=== PATIENT | male | born 1960 | race Hispanic/Latino ===

== ENCOUNTER 2017-02-26 13:29 | Inpatient (IN) | payer MEDICAID ==
[2017-02-26] MEDS ORDERED: Sodium Chloride 0.9% 1,000 ML IV STA ×2 (13:50→14:24)
[2017-02-26] MEDS ORDERED: Pantoprazole 40mg/100ml IVPB 40 MG/100 ML BAG IVPB SCH (14:00)
--- NOTE | 2017-02-26 14:04 | ED PDOC ---
Arrival/HPI - General Time Seen by Provider: 02/26/17 13:42 Historian: Patient, Spouse - History of Present Illness Narrative History of Present Illness (Text): 02/26/17 14:01 A 56 year old male, whose past medical history includes possible history of alcohol abuse and hypertension, presents to the emergency department accompanied by for complaints of nausea and vomiting episodes, which the patient believes he was throwing up blood. The patient's reports he began throwing up "yesterday morning" at around "7 am". The states that this vomit was "bloody" and she urged the patient to go to the hospital but he did not want to at the time. They both note the vomiting occurs every few hours. The patient also reports that he "thinks he has bloody stools." The patient admits his last drink was 2 days ago. He states that he went to work yesterday and felt "dizzy" while walking. He denies any chest pain or shortness of breath. He denies "abdominal pain" but states "my stomach feels upset". states that the patient does drink "frequently" but confirms no alcohol ingestion to her knowledge for at least two days. Patient denies nosebleeds. Denies easy bruising. Denies any falls or trauma. states that this morning patient appeared to be "very tired", although she denies confusion or altered mental status. Patient states he has not seen a physician for "a very long time". Time/Duration: < week (2 days ) Symptom Onset: Sudden Symptom Course: Unchanged Activities at Onset: Rest, Light Context: Home, Work Past Medical History - Provider Review Nursing Documentation Reviewed: Yes - Cardiac Hx Cardiac Disorders: Yes Hx Hypertension: Yes - Pulmonary Hx Respiratory Disorders: No - Neurological Hx Neurological Disorder: No - HEENT Hx HEENT Disorder: No - Renal Hx Renal Disorder: No - Endocrine/Metabolic Hx Endocrine Disorders: No - Hematological/Oncological Hx Blood Disorders: No - Integumentary Hx Dermatological Disorder: No - Musculoskeletal/Rheumatological Hx Musculoskeletal Disorders: No - Gastrointestinal Hx Gastrointestinal Disorders: No Hx Bowel Surgery: No - Genitourinary/Gynecological Hx Genitourinary Disorders: No - Psychiatric Hx Psychophysiologic Disorder: No Hx Depression: No Hx Emotional Abuse: No Hx Physical Abuse: No Hx Substance Use: No - Past Surgical History Past Surgical History: Non-Contributing - Surgical History Hx Orthopedic Surgery: Yes (knee) - Suicidal Assessment Feels Threatened In Home Enviroment: No Family/Social History - Physician Review Nursing Documentation Reviewed: Yes Family/Social History: Unknown Family HX Smoking Status: Heavy Smoker > 10 Cigarettes Daily Hx Alcohol Use: Yes Amount per day: 6 Hx Substance Use: No Hx Substance Use Treatment: No Allergies/Home Meds Allergies/Adverse Reactions: Allergies No Known Allergies Allergy (Verified 02/26/17 14:21) Home Medications: Home Meds Medication Instructions Recorded Confirmed Albuterol HFA [Ventolin HFA 90 0.09 mg IH QID 02/26/17 02/26/17 mcg/actuation (8 g)] Aspirin [Ecotrin] 81 mg PO DAILY 02/26/17 02/26/17 Cholecalciferol [Vitamin D] 50,000 iu PO QWK 02/26/17 02/26/17 Fluticasone/Salmeterol [Advair 1 each IH BID 02/26/17 02/26/17 250-50 Diskus] Metoprolol Succinate XL [Toprol XL] 50 mg PO DAILY 02/26/17 02/26/17 Review of Systems - Review of Systems Constitutional: Fatigue. absent: Fevers, Night Sweats Eyes: absent: Vision Changes, Photophobia, Eye Pain ENT: absent: Hearing Changes, Sore Throat Respiratory: absent: SOB, Cough, Wheezing Cardiovascular: Palpitations, DOWNEY. absent: Chest Pain, Edema, Calf Pain, Orthopnea, Syncope Gastrointestinal: Abdominal Pain, Nausea, Vomiting, Appetite Changes, Hematochezia, Hematemesis. absent: Constipation, Diarrhea, Anorexia, Food Intolerance, Other Genitourinary Male: absent: Dysuria, Frequency, Hematuria Musculoskeletal: absent: Back Pain Skin: absent: Rash Neurological: Dizziness. absent: Headache, Focal Weakness Endocrine: absent: Polyuria, Polydipsia Hemo/Lymphatic: Easy Bleeding Psychiatric: absent: Anxiety, Depression Physical Exam - Physical Exam Narrative Physical Exam (Text): 02/26/17 14:09 Head: Atraumatic. Normocephalic. Eyes: PERRL. EOMI. Visual acuity intact. Sclera icteric. ENT: Mucous membranes are dry and tacky. No lip or tongue edema. No pharyngeal erythema or exudates. Neck: Supple. Full ROM. No JVD. No lymphadenopathy. Cardiovascular: Tachycardic. Systolic murmur. Pulmonary/Chest: No evidence of respiratory distress. Clear to auscultation bilaterally. No wheezing, rales or rhonchi. Abdominal: Distended. Mild epigastric pain with hepatomegaly. No pulsatile masses. No rebound or guarding. Normoactive bowel sounds. Back: No CVA tenderness. No midline tenderness. Genitourinary: no testicular pain or edema Extremities: No edema. No cyanosis. No clubbing. Full range of motion in all extremities. No calf tenderness. Distal pulses intact. Skin: Skin is pale and diaphoretic. No petechiae or purpura noted. Neurological: Alert, awake, and oriented to person, place, time, and situation. Slow but appropriate speech. Tremulous. No pronator drift. Positive asterixis. No nuchal rigidity or meningeal signs. On later exam at 15:00, patient is disoriented to person and time. Remains tremulous. Psychiatric: Poor eye contact. Denies suicidal or homicidal ideation. Rectal exam: Dark heme positive stool, melena. Vital Signs Reviewed: Yes Vital Signs Temp Pulse Resp BP Pulse Ox 02/26/17 15:05 123 H 24 161/108 H 94 L 02/26/17 13:29 99.2 F 136 H 20 146/80 96 Temperature: Afebrile Blood Pressure: Hypertensive Pulse: Tachycardic Respiratory Rate: Tachypneic Appearance: Positive for: Ill-Appearing Mental Status: Positive for: Alert and Oriented X 3 Medical Decision Making ED Course and Treatment: 02/26/17 14:00 Impression: Differential Diagnosis included but are not limited to: GI Bleed. vs. Esophageal varices vs. Alcohol withdrawal vs. Alcohol intoxication vs Hepatic Encephalopathy vs. Peritonitis vs. sepsis Plan: -- EKG -- Chest X-ray -- Protonix IV drip, IV Fluids, Zofran -- Labs -- Urinalysis -- Reassess and disposition Progress Notes: Patient's history is supplemented by at bedside. Patient's past visits to ED significant for ETOH abuse. Family and patient state that he does not see a doctor regularly. Patient states he has not vomited since earlier this morning, but believes he saw blood in his vomitus. His abdomen is distended but nontender. Rectal exam performed by me reveals melena as well as heme positive stool. He is tachycardic, but initially has stable blood pressure. I have concern for severe GI bleed given tachycardia, despite lack of hypotension, as patient has likely history of alcohol abuse per history and signs of active bleeding. IV lines established and iv fluids boluses ordered as well as type and screen. Cannot exclude also potentially a component of alcohol withdrawal as he has not had a drink "for two days". Labs currently pending. We will continue aggressive iv hydration with close monitoring of pressure and patient will be ordered protonix with protonix drip. Plan to admit to ICU, labs pending. Will consult lead project manager. Critical nature of patient's symptoms reviewed with patient and . 02/26/17 14:31 Chest X-Ray Gang Saw Operator : Nando Chiang MD Report Date : 02/26/2017 14:19:23 COMPARISON:10/19/2012 FINDINGS: LUNGS:No active pulmonary disease. PLEURA:No significant pleural effusion identified, no pneumothorax apparent. CARDIOVASCULAR:Normal. OSSEOUS STRUCTURES:No significant abnormalities. VISUALIZED UPPER ABDOMEN:Normal. OTHER FINDINGS:None. IMPRESSION:No active disease. Patient on re-evaluation is less tachycardic but hear rate remains accelerated, appears to be sinus tachycardia rate of 126 on re-evaluation. BP remains stable. states he takes medications prescribed by "[employer]" but patient is uncertain what meds he takes. He denies any history of diabetes or cardiac disease. With serial exams, he remains tremulous and appears intermittently confused not recognizing his and stating that year is 2014, although on initial exam he answered these questions appropriately. and patient deny any prior admissions, although believes he drinks heavily and daily. I feel current exam likely exacerbated by component of alcohol withdrawal as he has had no alcohol in two days. Lactate elevated, he is afebrile. Cannot exclude sepsis although patient also has elevated lactate from active GI bleed. Troponin elevated, he is not candidate for anticoagulation given active gi bleed although will continue to monitor, initial EKG unremarkable for acute ST elevations, he denies chest pain but does have some palpable epigastric discomfort. Highway Administrative Engineer consulted and labs and symptoms reviewed. WILL NOT ADMINISTER PACKED RED BLOOD CELLS after consultation with lead project manager and GI based on current Hemoglobin. IV antibiotics initiated as peritonitis is excluded given elevated lactate and unreliable abdominal exam given mental status. Elevated ammonia level noted, likely component of hepatic encephalopathy, lactulose ordered. I discussed case with on-call GI Dr. Peck and reviewed treatment plan and labs and current exam. Patient's updated with multiple medical abnormalities and abnormal labs and critical nature of his presentation. Patient admitted to ICU. CT's pending at this time. Case accepted by hospitalist to their service. 02/26/17 15:39 02/26/17 16:57 Order to NOT give packed red blood cells have been communicated to ICU team and GI team, as well as to nursing staff. - Critical Care Critical Care Minutes: 60 minutes - Lab Interpretations Lab Results: 02/26/17 13:57 02/26/17 13:57 Lab Results 02/26/17 14:07: POC Glucose (mg/dL) 134 H 02/26/17 13:57: Ammonia 107 H 02/26/17 13:57: Blood Type A POSITIVE, Antibody Screen Negative, Crossmatch See Detail, BBK History Checked No verified bt 02/26/17 13:57: Alcohol, Quantitative < 10 02/26/17 13:57: Salicylates < 1 L, Acetaminophen < 10.0 L 02/26/17 13:57: Sodium 134, Chloride 90 L, Potassium 4.2, Carbon Dioxide 28, Anion Gap 20, BUN 33 H, Creatinine 0.8, Est GFR ( Amer) > 60, Est GFR ( Non-Af Amer) > 60, Random Glucose 123 H, Calcium 8.7, Magnesium 1.3 L, Total Bilirubin 5.4 H, AST 911 H, ALT 297 H, Alkaline Phosphatase 85, Lactate Dehydrogenase 3153 H, Total Creatine Kinase 250 H, CK-MB (CK-2) 6.4 H, CK-MB (CK -2) % 2.6, Troponin I 0.34 H*, Total Protein 6.4, Albumin 3.0, Globulin 3.4, Albumin/Globulin Ratio 0.9 L, Amylase 52, Lipase 35 02/26/17 13:57: pO2 144 H, VBG pH 7.51 H, VBG pCO2 34.0 L, VBG HCO3 27.1, VBG Total CO2 28.1 H, VBG O2 Sat (Calc) 100.2 H, VBG Base Excess 4.3 H, VBG Potassium 4.5, Sodium 133.0, Chloride 93.0 L, Glucose 125 H, Lactate 12.4 H*, FiO2 21.0, Venous Blood Potassium 4.5 02/26/17 13:57: PT 21.6 H, INR 2.00 H, APTT 35.2 H 02/26/17 13:57: WBC 9.6 D, RBC 2.60 L, Hgb 9.6 L, Hct 28.0 L, MCV 107.7 H, MCH 36.9 H, MCHC 34.3, RDW 14.7 H, Plt Count 79 L, MPV 9.9, Gran % 67.6, Lymph % ( Auto) 18.8 L, [place] % (Auto) 13.5 H, Eos % (Auto) 0.0 L, Baso % (Auto) 0.1, Gran # 6.49, Lymph # 1.8, [place] # 1.3 H, Eos # 0.0, Baso # 0.01 - RAD Interpretation Radiology Orders: 02/26/17 13:49 CHEST PORTABLE [RAD] Stat Chef Under: Radiologist - EKG Interpretation EKG Interpretation (Text): 02/26/17 14:08 EKG at 13:40 sinus tachycardia rate of [address] elevations Interpreted by ED Physician: Yes Type: 12 lead EKG - Medication Orders Current Medication Orders: Octreotide Acetate 1,250 mcg/ (Sodium Chloride) 252.5 mls @ 10.1 mls/hr IV .Q24H ED; 50 MCG/HR PRN Reason: Protocol Sodium Chloride (Sodium Chloride 0.9%) 1,000 mls @ 250 mls/hr IV .Q4H ONE Stop: 02/26/17 19:17 Pantoprazole Sodium (Protonix 40mg Ivpb) 40 mg in 100 mls @ 20 mls/hr IVPB .Q5H ED Vancomycin HCl (Vancomycin 1gm) 1 gm in 250 mls @ 167 mls/hr IVPB Q12H ED PRN Reason: Protocol Piperacillin Sod/Tazobactam Sod (Zosyn 3.375 In Ns 100ml) 100 mls @ 200 mls/hr IVPB Q8 ED PRN Reason: Protocol Stop: 02/27/17 06:29 Lactulose (Enulose) 30 gm PO Q4H ED Lorazepam (Ativan) 2 mg IVP Q6H PRN; Protocol PRN Reason: Anxiety Discontinued Medications Sodium Chloride (Sodium Chloride 0.9%) 1,000 mls @ 1,000 mls/hr IV .Q1H STA Stop: 02/26/17 14:49 Last Admin: 02/26/17 14:00 Dose: 1,000 mls/hr eMAR Start Stop Document 02/26/17 14:00 SRE (Rec: 02/26/17 14:21 [email or web address] [id number]) Intravenous Solution Start Date 02/26/17 Start Time 14:00 End Date 02/26/17 End time 15:00 Total Infusion Time 60 Pantoprazole Sodium (Protonix 40mg Ivpb) 40 mg in 100 mls @ 20 mls/hr IVPB .Q5H ED Last Admin: 02/26/17 14:22 Dose: 20 mls/hr eMAR Start Stop Document 02/26/17 14:22 SRE (Rec: 02/26/17 14:23 SRE [id number]) Intravenous Solution Start Date 02/26/17 Start Time 14:05 End Date 02/26/17 End time 19:00 Total Infusion Time 295 Sodium Chloride (Sodium Chloride 0.9%) 1,000 mls @ 1,000 mls/hr IV .Q1H STA Stop: 02/26/17 15:23 Last Admin: 02/26/17 15:04 Dose: 1,000 mls/hr eMAR Start Stop Document 02/26/17 15:04 SRE (Rec: 02/26/17 15:04 [email or web address] [id number]) Intravenous Solution Start Date 02/26/17 Start Time 15:04 End Date 02/26/17 End time 16:00 Total Infusion Time 56 Vancomycin HCl (Vancomycin 1gm) 1 gm in 250 mls @ 167 mls/hr IVPB STAT STA PRN Reason: Protocol Stop: 02/26/17 16:29 Piperacillin Sod/Tazobactam Sod (Zosyn 4.5 Gm In Ns 100ml) 4.5 gm in 100 mls @ 200 mls/hr IVPB STAT STA PRN Reason: Protocol Stop: 02/26/17 15:30 Last Admin: 02/26/17 15:19 Dose: 200 mls/hr eMAR Start Stop Document 02/26/17 15:19 SRE (Rec: 02/26/17 15:20 [email or web address] [id number]) Intravenous Solution Start Date 02/26/17 Start Time 15:00 End Date 02/26/17 End time 16:00 Total Infusion Time 60 Phytonadione 10 mg/ Sodium (Chloride) 51 mls @ 100 mls/hr IV ONCE ONE Stop: 02/26/17 16:01 Magnesium Sulfate 2 gm/ Sodium (Chloride) 104 mls @ 102 mls/hr IVPB ONCE ONE Stop: 02/26/17 16:36 Multivitamins/Vitamin C 10 ml/Thiamine HCl 100 mg/ Folic Acid 1 mg/ Dextrose 1, 011.2 mls @ 1,000 mls/hr IV .Q1H1M ONE Stop: 02/26/17 16:37 Lactulose (Enulose) 10 gm PO STAT ED Stop: 02/26/17 15:16 Lactulose (Generlac) 200 gm MS ONCE ONE Stop: 02/26/17 16:38 Ondansetron HCl (Zofran Inj) 4 mg IVP ONCE ONE Stop: 02/26/17 14:12 Last Admin: 02/26/17 14:24 Dose: Pantoprazole Sodium (Protonix Inj) 40 mg IVP ONCE STA Stop: 02/26/17 13:51 Last Admin: 02/26/17 14:05 Dose: 40 mg IVP Administration Document 02/26/17 14:05 SRE (Rec: 02/26/17 14:22 SRE [id number]) Charges for Administration # of IVP Administrations 1 - Scribe Statement The provider has reviewed the documentation as recorded by the Betito Lenz Provider Scribe Attestation: All medical record entries made by the Lissibadam were at my direction and personally dictated by me. I have reviewed the chart and agree that the record accurately reflects my personal performance of the history, physical exam, medical decision making, and the department course for this patient. I have also personally directed, reviewed, and agree with the discharge instructions and disposition. Disposition/Present on Arrival - Present on Arrival Any Indicators Present on Arrival: No History of DVT/PE: No History of Uncontrolled Diabetes: No Urinary Catheter: No History Surgical Site Infection Following: None - Disposition Have Diagnosis and Disposition been Completed?: Yes Diagnosis: GI (gastrointestinal hemorrhage), Hepatic encephalopathy, Tachycardia, Altered mental status, Jaundice, Elevated lactic acid level, Elevated troponin, Anemia, Thrombocytopenia, History of alcohol abuse Disposition: HOSPITALIZED Disposition Time: 15:00 Patient Plan: Admission, ICU Condition: CRITICAL
[2017-02-26 14:20] LABS: VENOUS BLOOD GAS BASE EXCESS 4.3 mmol/L (0.0-2.0); VENOUS BLOOD PH 7.51 (7.32-7.43)
--- NOTE | 2017-02-26 14:20 | RAD ---
HISTORY: weakness COMPARISON: 10/19/2012 FINDINGS: LUNGS: No active pulmonary disease. PLEURA: No significant pleural effusion identified, no pneumothorax apparent. CARDIOVASCULAR: Normal. OSSEOUS STRUCTURES: No significant abnormalities. VISUALIZED UPPER ABDOMEN: Normal. OTHER FINDINGS: None. IMPRESSION: No active disease.
[2017-02-26 14:22] LABS: BASO # 0.01 K/mm3 (0.0-2.0); BASO % 0.1 % (0.0-3.0); GRAN # 6.49 (1.4-6.5); GRAN % 67.6 % (50.0-68.0); LYMPH # 1.8 (1.2-3.4); LYMPH % 18.8 % (22.0-35.0); MEAN CELL VOLUME 107.7 fl (80.0-105.0); MEAN CORPUSCULAR HEMOGLOBIN 36.9 pg (25.0-35.0); MEAN CORPUSCULAR HGB CONC 34.3 g/dl (31.0-37.0); MEAN PLATELET VOLUME 9.9 fl (7.0-11.0); MONO # 1.3 (0.1-0.6); MONO % 13.5 % (1.0-6.0); RED CELL DISTRIBUTION WIDTH 14.7 % (11.5-14.5); WHITE BLOOD COUNT 9.6 10^3/ul (4.5-11.0)
[2017-02-26 14:31] LABS: BLOOD UREA NITROGEN 33 mg/dL (7-21); CALCIUM 8.7 mg/dL (8.4-10.5); CARBON DIOXIDE 28 mmol/L (21-33); CHLORIDE 90 mmol/L (98-107); GFR AFRICAN-AMERICAN > 60; GLUCOSE,RANDOM 123 mg/dL (70-110); MAGNESIUM 1.3 mg/dL (1.7-2.2); POTASSIUM 4.2 mmol/L (3.6-5.0); SODIUM 134 mmol/L (132-148); TOTAL PROTEIN 6.4 g/dL (5.8-8.3)
[2017-02-26 14:32] LABS: ALB/GLOB RATIO 0.9 (1.1-1.8); ALKALINE PHOSPHATASE 85 U/L (38-126); ALT/SGPT 297 U/L (7-56); AMYLASE 52 U/L (35-125); BILIRUBIN,TOTAL 5.4 mg/dL (0.2-1.3); LIPASE 35 U/L (23-300)
[2017-02-26 14:37] LABS: AST/SGOT 911 U/L (17-59)
[2017-02-26 14:46] LABS: TROPONIN I 0.34 ng/mL
[2017-02-26 14:51] LABS: PARTIAL THROMBOPLASTIN TIME 35.2 Seconds (23.7-30.8)
[2017-02-26] MEDS ORDERED: Vancomycin 1gm in NS 250ml 1 GM/250 ML BAG IVPB STA (15:00)
[2017-02-26] MEDS ORDERED: Piperacill/Tazo 4.5gm in NS 4.5 GM/100 ML BAG IVPB STA (15:01)
[2017-02-26] MEDS ORDERED: Sodium Chloride 0.9% 1,000 ML IV ONE (15:18)
[2017-02-26] MEDS ORDERED: Phytonadione 10 MG in Sodium Chloride 0.9% 50 ML IV ONE (15:31)
[2017-02-26] MEDS ORDERED: Magnesium Sulfate 2 GM in Sodium Chloride 0.9% 100 ML IVPB ONE ×2 (15:35→15:45)
[2017-02-26] MEDS ORDERED: Multivitamin (MVI) 10 ML, Thiamine 100 MG, Folic Acid 1 MG in Dextrose 5% In Water 1,00... IV ONE (15:37)
--- NOTE | 2017-02-26 16:02 | CP.PCM.HP ---
<Lila Alvarenga - Last Filed: 02/26/17 16:36> History of Present Illness - History of Present Illness History of Present Illness: Patient is a 56 year old male with past medical history of alcohol abuse and HTN presents to the ED for hematemesis. Patient states that he has been vomiting dark red blood since yesterday morning. Vomitus subsequently became dark, coffee ground in nature. Patient reports vomiting 6 times yesterday and 3- 4 times today. Patient occasionally confused during the interview. is currently at the bedside providing some of the history. States that confusion started in the ED. Does not know where he is or what year he was born. Per the , patient's last drink was Saturday and he drank 3-4 beers. States that he has never had this before. Patient currently admits to feeling palpitations. Denies headache, dizziness, fevers, chills, cp, sob, abdominal pain, urinary symptoms. Patient unsure when last BM was and unable to describe it. Denies auditory/visual hallucinations, denies SI/HI ideation. ED course: NS bolus x 2, Zofran, Zosyn, Protonix 40mg IVP, Vitamin K PMD: Dr. Cevallos Allergies: NKDA Medications: see MAR Medical History: Alcohol abuse, HTN Surgical History: denies Social History: heavy drinker, 3-6 beers every other day for the past 30 years; smokes 1ppd for unknown amount of years, smokes marijuana occasionally Family History: denies Present on Admission - Present on Admission Any Indicators Present on Admission: No Review of Systems - Constitutional Constitutional: absent: Chills, Fever, Headache - EENT Eyes: absent: Blurred Vision, Change in Vision Ears: absent: Decreased Hearing - Cardiovascular Cardiovascular: Palpitations. absent: Chest Pain, Dyspnea, Lightheadedness, Syncope - Respiratory Respiratory: absent: Cough, Wheezing - Gastrointestinal Gastrointestinal: Coffee Ground Emesis, Hematemesis, Vomiting. absent: Abdominal Pain, Constipation, Diarrhea, Nausea - Genitourinary Genitourinary: absent: Difficulty Urinating, Dysuria - Musculoskeletal Musculoskeletal: absent: Back Pain, Numbness, Tingling - Neurological Neurological: absent: Dizziness, Numbness, Headaches, Tingling, Weakness - Psychiatric Psychiatric: Confusion. absent: Anxiety, Auditory Hallucinations, Depression, Visual Hallucinations Past Patient History - Infectious Disease Hx of Infectious Diseases: None - Past Social History Smoking Status: Heavy Smoker > 10 Cigarettes Daily - CARDIAC Hx Cardiac Disorders: Yes Hx Hypertension: Yes - PULMONARY Hx Respiratory Disorders: No - NEUROLOGICAL Hx Neurological Disorder: No - HEENT Hx HEENT Problems: No - RENAL Hx Chronic Kidney Disease: No - ENDOCRINE/METABOLIC Hx Endocrine Disorders: No - HEMATOLOGICAL/ONCOLOGICAL Hx Blood Disorders: No - INTEGUMENTARY Hx Dermatological Problems: No - MUSCULOSKELETAL/RHEUMATOLOGICAL Hx Musculoskeletal Disorders: No - GASTROINTESTINAL Hx Gastrointestinal Disorders: No Hx Bowel Surgery: No - GENITOURINARY/GYNECOLOGICAL Hx Genitourinary Disorders: No - PSYCHIATRIC Hx Psychophysiologic Disorder: No Hx Depression: No Hx Emotional Abuse: No Hx Physical Abuse: No Hx Substance Use: No - SURGICAL HISTORY Hx Orthopedic Surgery: Yes (knee) - ANESTHESIA Hx Anesthesia Reactions: No Meds Allergies/Adverse Reactions: Allergies Allergy/AdvReac Type Severity Reaction Status Date / Time No Known Allergies Allergy Verified 02/26/17 14:21 Physical Exam - Constitutional Appears: Non-toxic, No Acute Distress - Head Exam Head Exam: ATRAUMATIC, NORMAL INSPECTION, NORMOCEPHALIC - Eye Exam Eye Exam: EOMI, Normal appearance - ENT Exam ENT Exam: Mucous Membranes Moist Additional comments: Patient with dried coffee ground emesis around lips - Neck Exam Neck exam: Positive for: Full Rom - Respiratory Exam Respiratory Exam: Clear to Auscultation Bilateral, NORMAL BREATHING PATTERN. absent: Rales, Rhonchi, Wheezes - Cardiovascular Exam Cardiovascular Exam: Tachycardia, +S1, +S2 - GI/Abdominal Exam GI & Abdominal Exam: Distended, Soft. absent: Rebound, Rigid, Tenderness - Extremities Exam Extremities exam: Positive for: normal inspection, pedal pulses present. Negative for: calf tenderness, tenderness - Back Exam Back exam: NORMAL INSPECTION - Neurological Exam Neurological exam: Altered - Psychiatric Exam Psychiatric exam: Normal Affect, Normal Mood - Skin Skin Exam: Dry, Normal Color, Warm Results - Vital Signs Recent Vital Signs: Last Vital Signs Temp 99.2 F 02/26/17 13:29 Pulse 123 H 02/26/17 15:05 Resp 24 02/26/17 15:05 BP 161/108 H 02/26/17 15:05 Pulse Ox 94 L 02/26/17 15:05 - Labs Result Diagrams: 02/26/17 13:57 02/26/17 13:57 Labs: Laboratory Results - last 24 hr 02/26/17 15:00 Blood Type Confirm A POSITIVE Assessment & Plan - Assessment and Plan (Free Text) Assessment: 56 year old male with past medical history of alcohol abuse and HTN presents to the ED for GI bleed and alcohol withdrawal. Plan: 1. Acute GI Bleed -Will admit to ICU for close monitoring -Hgb on admission 9.6 (baseline 15-16) -EKG showing sinus tachycardia; CXR showing no active disease -Started on Octreotide drip, high possibility for varicies -Continue protonix drip -Continue IVF hydration -Abx: Vanco and zosyn -CBC q6h -Patient type and cross matched, will hold off on transfusing for now -Monitor for signs of bleeding -CT abd/pelvis ordered, f/u results -Diet: NPO -Possible EGD tomorrow -GI on consult f/u recommendations 2. Altered Mental Status 2/2 hepatic encephalopathy vs alcohol withdrawal -Awake and alert (not orientated to place or time) -Head CT ordered, f/u results -Ammonia level on admission 107 -Lactulose given -UDS ordered 3. Alcohol withdrawal; Hx of alcohol abuse -Alcohol level on admission <10 -Patient will need to be started on Ativan for withdrawal, will defer to ICU team -Banana bag ordered -CIWA protocol, seizure precautions, aspiration precautions 4. Acute Liver Failure/Transaminitis -Received Vitamin K in the ED -Can administer FFP if needed -AST/ALT 911/297; INR 2.0 -Monitor LFTs -Avoid hepatotoxic agents -F/U RUQ US 5. Lactic acidosis Type B -Lactate 12.4 on admission -Likely 2/2 to alcohol, infectious etiology not likely -F/U repeat lactate -IVF hydration -Abx: vanco and zosyn -F/U romero cultures 6. Elevated troponin likely 2/2 demand ischemia in the setting of acute GI bleed -Troponin 0.34 on admission -EKG sinus tachycardia -Cardiology consulted, f/u recommendations 7. Thrombocytopenia 2/2 alcoholic liver disease -Platelets 79 on admission -Will continue to monitor 8. Hx of Hypertension -BPs elevated likely 2/2 to alcohol withdrawal -Hold BP medications -Will continue to monitor 9. Electrolyte imbalance -Magnesium 1.3, repleted with Mg 2gm -Will monitor closely and replete as needed GI/DVT PPx -Protonix drip -SCDs <Madhu Watters - Last Filed: 02/27/17 16:48> Results - Vital Signs Recent Vital Signs: Last Vital Signs Temp 97.9 F 02/27/17 13:33 Pulse 108 H 02/27/17 15:10 Resp 22 02/27/17 15:10 BP 133/61 02/27/17 13:48 Pulse Ox 96 02/27/17 15:10 - Labs Result Diagrams: 02/27/17 11:35 02/27/17 05:40 Labs: Laboratory Results - last 24 hr 02/26/17 02/26/17 02/26/17 19:39 19:39 19:39 WBC RBC Hgb Hct MCV MCH MCHC RDW Plt Count MPV Gran % Lymph % (Auto) [place] % (Auto) Eos % (Auto) Baso % (Auto) Gran # Lymph # [place] # Eos # Baso # PT 23.2 H INR 2.15 H APTT pO2 52 VBG pH 7.45 H VBG pCO2 42.0 VBG HCO3 29.2 H VBG Total CO2 30.5 H VBG O2 Sat (Calc) 90.6 H VBG Base Excess 4.7 H VBG Potassium 4.9 Sodium 136.0 Chloride 98.0 Glucose 110 Lactate 8.7 H* FiO2 21.0 Potassium Carbon Dioxide Anion Gap BUN Creatinine Est GFR ( Amer) Est GFR (Non-Af Amer) POC Glucose (mg/dL) Random Glucose Lactic Acid 7.7 H* Calcium Phosphorus Magnesium Total Bilirubin AST ALT Alkaline Phosphatase Lactate Dehydrogenase Total Creatine Kinase CK-MB (CK-2) CK-MB (CK-2) % Troponin I Total Protein Albumin Globulin Albumin/Globulin Ratio Venous Blood Potassium 4.9 02/26/17 02/26/17 02/27/17 19:39 19:39 00:40 WBC 10.9 RBC 2.28 L Hgb 8.4 L Hct 24.6 L MCV 107.9 H MCH 36.8 H MCHC 34.1 RDW 15.0 H Plt Count 66 L MPV 10.3 Gran % 61.1 Lymph % (Auto) 24.8 [place]bers[place] % (Auto) 14.0 H Eos % (Auto) 0.0 L Baso % (Auto) 0.1 Gran # 6.68 H Lymph # 2.7 [place] # 1.5 H Eos # 0.0 Baso # 0.01 PT INR APTT 36.1 H pO2 VBG pH VBG pCO2 VBG HCO3 VBG Total CO2 VBG O2 Sat (Calc) VBG Base Excess VBG Potassium Sodium Chloride Glucose Lactate FiO2 Potassium Carbon Dioxide Anion Gap BUN Creatinine Est GFR ( Amer) Est GFR (Non-Af Amer) POC Glucose (mg/dL) Random Glucose Lactic Acid Calcium Phosphorus Magnesium Total Bilirubin AST ALT Alkaline Phosphatase Lactate Dehydrogenase 2772 H Total Creatine Kinase 327 H CK-MB (CK-2) 7.2 H CK-MB (CK-2) % 2.2 L Troponin I 0.45 H* D Total Protein Albumin Globulin Albumin/Globulin Ratio Venous Blood Potassium 02/27/17 02/27/17 02/27/17 05:40 05:40 05:50 WBC 9.9 RBC 2.01 L Hgb 7.4 L Hct 21.9 L MCV 109.0 H MCH 36.8 H MCHC 33.8 RDW 15.4 H Plt Count 47 L* MPV 10.2 Gran % 54.8 Lymph % (Auto) 30.0 [place]bers[place] % (Auto) 14.7 H Eos % (Auto) 0.2 L Baso % (Auto) 0.3 Gran # 5.42 Lymph # 3.0 [place] # 1.5 H Eos # 0.0 Baso # 0.03 PT 21.6 H INR 2.00 H APTT 40.0 H pO2 VBG pH VBG pCO2 VBG HCO3 VBG Total CO2 VBG O2 Sat (Calc) VBG Base Excess VBG Potassium Sodium 138 Chloride 98 Glucose Lactate FiO2 Potassium 3.9 Carbon Dioxide 37 H Anion Gap 7 L BUN 31 H Creatinine 0.8 Est GFR ( Amer) > 60 Est GFR (Non-Af Amer) > 60 POC Glucose (mg/dL) Random Glucose 127 H Lactic Acid Calcium 7.6 L Phosphorus 2.2 L Magnesium 2.0 Total Bilirubin 5.0 H AST 1312 H ALT 411 H Alkaline Phosphatase 75 Lactate Dehydrogenase Total Creatine Kinase CK-MB (CK-2) CK-MB (CK-2) % Troponin I 0.21 H* D Total Protein 5.7 L Albumin 2.5 L Globulin 3.2 Albumin/Globulin Ratio 0.8 L Venous Blood Potassium 02/27/17 02/27/17 06:39 11:35 WBC 8.4 RBC 2.21 L Hgb 8.2 L Hct 23.7 L MCV 107.2 H MCH 37.1 H MCHC 34.6 RDW 15.2 H Plt Count 47 L* MPV 10.3 Gran % 65.3 Lymph % (Auto) 24.0 [place] % (Auto) 9.1 H Eos % (Auto) 0.2 L Baso % (Auto) 1.4 Gran # 5.49 Lymph # 2.0 [place] # 0.8 H Eos # 0.0 Baso # 0.12 PT INR APTT pO2 VBG pH VBG pCO2 VBG HCO3 VBG Total CO2 VBG O2 Sat (Calc) VBG Base Excess VBG Potassium Sodium Chloride Glucose Lactate FiO2 Potassium Carbon Dioxide Anion Gap BUN Creatinine Est GFR ( Amer) Est GFR (Non-Af Amer) POC Glucose (mg/dL) 122 H Random Glucose Lactic Acid Calcium Phosphorus Magnesium Total Bilirubin AST ALT Alkaline Phosphatase Lactate Dehydrogenase Total Creatine Kinase CK-MB (CK-2) CK-MB (CK-2) % Troponin I Total Protein Albumin Globulin Albumin/Globulin Ratio Venous Blood Potassium Attending/Attestation - Attestation I have personally seen and examined this patient.: Yes I have fully participated in the care of the patient.: Yes I have reviewed all pertinent clinical information: Yes Notes (Text): 02/27/17 16:45 attending note; Patient seen and examined with resident and ICU attending in ER. Patient is 56 year old male with PMH of HTN, on ASA, ETOH abuse(>6 beers per day x 30y), presents with hematemesis and AMS. GI bleed; monitor vitals closely. Started on IV fluids. Has two large-bore IV line. Started on IV Protonix and IV octerotide. Possible liver cirrhosis/portal hypertension and esophageal varices suspected. rule out gastric ulcer and gastritis. Elevated LFTs; acute alcoholic hepatitis. GI evaluation requested. altered mental status; mostly secondary to hepatic encephalopathy/alcohol withdrawal. Monitor closely in ICU. Coagulopathy; 2 units of FFP ordered. Thrombocytopenia; secondary to chronic alcohol abuse. lactic acidosis; secondary to hypoperfusion/liver disease. Patient is afebrile and nontoxic. Started on vancomycin and Zosyn. patient will be closely monitored in ICU. The diagnosis and treatment plan discussed with patient and patient's in detail. Prognosis is guarded.
--- NOTE | 2017-02-26 16:04 | CP.PCM.CON ---
History of Present Illness - History of Present Illness History of Present Illness: CRITICAL CARE CONSULT NOTE HPI: Patient is 56yo male with PMHx of HTN, on ASA, heavy EtOH abuse (>6 beers per day x 30y), presents with hematemesis and AMS. As per the , who is at bedside and provided most of the history, patient started having hematemesis yesterday at 7am, coffee ground emesis, associated with nausea, and abd pain, and no PO intake since SaturdayFeb 24. Patient denies fever, chills, cough, chest pain, sob, palpitations, ARNDT, melena. Pt endorses dizziness upon walking. No other constitutional symptoms. Patient also more confused since Saturday, uable to recall the date/year. In the ER patient had an episode of coffee ground emesis. GI consulted. CT Head, Abd/Pelvis pending at this moment. Patient in the ER received 1L NS bolus, Protonix ppi IV, Octreotide drip. PMhx: as above PSHx: as above Allergies: nkda FHx: NC Meds: patient cannot recall BP meds, " blood thinner"? ASA ROS: as above Review of Systems - Review of Systems Review of Systems: as above Past Patient History - Infectious Disease Hx of Infectious Diseases: None - Past Social History Smoking Status: Heavy Smoker > 10 Cigarettes Daily - CARDIAC Hx Cardiac Disorders: Yes Hx Hypertension: Yes - PULMONARY Hx Respiratory Disorders: No - NEUROLOGICAL Hx Neurological Disorder: No - HEENT Hx HEENT Problems: No - RENAL Hx Chronic Kidney Disease: No - ENDOCRINE/METABOLIC Hx Endocrine Disorders: No - HEMATOLOGICAL/ONCOLOGICAL Hx Blood Disorders: No - INTEGUMENTARY Hx Dermatological Problems: No - MUSCULOSKELETAL/RHEUMATOLOGICAL Hx Musculoskeletal Disorders: No - GASTROINTESTINAL Hx Gastrointestinal Disorders: No Hx Bowel Surgery: No - GENITOURINARY/GYNECOLOGICAL Hx Genitourinary Disorders: No - PSYCHIATRIC Hx Psychophysiologic Disorder: No Hx Depression: No Hx Emotional Abuse: No Hx Physical Abuse: No Hx Substance Use: No - SURGICAL HISTORY Hx Orthopedic Surgery: Yes (knee) - ANESTHESIA Hx Anesthesia Reactions: No Meds Allergies/Adverse Reactions: Allergies Allergy/AdvReac Type Severity Reaction Status Date / Time No Known Allergies Allergy Verified 02/26/17 14:21 - Medications Medications: Current Medications Pantoprazole Sodium (Protonix 40mg Ivpb) 40 mg in 100 mls @ 20 mls/hr IVPB .Q5H ED Last Admin: 02/26/17 14:22 Dose: 20 mls/hr Vancomycin HCl (Vancomycin 1gm) 1 gm in 250 mls @ 167 mls/hr IVPB STAT STA PRN Reason: Protocol Stop: 02/26/17 16:29 Octreotide Acetate 1,250 mcg/ (Sodium Chloride) 252.5 mls @ 10.1 mls/hr IV .Q24H ED; 50 MCG/HR PRN Reason: Protocol Sodium Chloride (Sodium Chloride 0.9%) 1,000 mls @ 250 mls/hr IV .Q4H ONE Stop: 02/26/17 19:17 Phytonadione 10 mg/ Sodium (Chloride) 51 mls @ 100 mls/hr IV ONCE ONE Stop: 02/26/17 16:01 Magnesium Sulfate 2 gm/ Sodium (Chloride) 104 mls @ 102 mls/hr IVPB ONCE ONE Stop: 02/26/17 16:36 Multivitamins/Vitamin C 10 ml/Thiamine HCl 100 mg/ Folic Acid 1 mg/ Dextrose 1, 011.2 mls @ 1,000 mls/hr IV .Q1H1M ONE Stop: 02/26/17 16:37 Lactulose (Enulose) 10 gm PO STAT ED Lactulose (Enulose) 30 gm PO ONCE ED Physical Exam - Constitutional Appears: No Acute Distress, Confused - Head Exam Head Exam: ATRAUMATIC, NORMAL INSPECTION - Eye Exam Eye Exam: EOMI Additional comments: pale conjuctiva - ENT Exam ENT Exam: Mucous Membranes Dry - Neck Exam Neck exam: Positive for: Full Rom - Respiratory Exam Respiratory Exam: Clear to Auscultation Bilateral, NORMAL BREATHING PATTERN - Cardiovascular Exam Cardiovascular Exam: Tachycardia, REGULAR RHYTHM, +S1, +S2 - GI/Abdominal Exam GI & Abdominal Exam: Normal Bowel Sounds, Soft Additional comments: NO rebound/guarding NO HSM - Extremities Exam Extremities exam: Positive for: normal inspection - Neurological Exam Additional comments: awake, alert, oriented to place only - Skin Skin Exam: Normal Color Results - Vital Signs Recent Vital Signs: Last Vital Signs Temp 99.2 F 02/26/17 13:29 Pulse 123 H 02/26/17 15:05 Resp 24 02/26/17 15:05 BP 161/108 H 02/26/17 15:05 Pulse Ox 94 L 02/26/17 15:05 - Labs Result Diagrams: 02/26/17 13:57 02/26/17 13:57 - EKG Data EKG comments: PENDING - Imaging and Cardiology Chest x-ray Status: Image reviewed by me Assessment & Plan - Assessment and Plan (Free Text) Assessment: 56yo male with a/w hematemesis, AMS GIB Anemia Hematemsis/Coffee Ground Coagulopathy] Liver disease Lactic Acidosis Hepatic Encephalopathy Elevated LFTs Alcohol withdrawal Elevated troponin - currently awake, alert, NAD, oriented to place only, confused - SBP ranging 120-140s, HR 110-130s sinus, afebrile - labs noted with multiple derangements, lactic acidosis, hypperammonemia - baseline HH 15-16, today 9.6, INR 2.0 likely 2/2 liver disease - elevated LFTs - Tylenol level <10 Recommend: - supp o2 as needed - broad spectrum abx, Vanco, Zosyn - panculture, UA, Urine Culture, Sputum culture, Urine Lg, Strep - hold BP meds - maintain 2 large bore IVs - correct coagulopathy transfuse 2u FFP, Vitamin K IV 10mg x 1 - PPI drip, Octreotide drip - NPO - follow up CT Abd/Pelvis - follow up GI, may need emergent EGD - lactulose, titrate to 2-3 BMs - follow up CT head - q6hr CBC, - repeat lactate - RUQ sono - aspiration precautions - DVT ppx, SCDs Patient is at high risk for morbidity and mortality Critical care time 45 minutes
--- NOTE | 2017-02-26 16:15 | CT ---
PROCEDURE: CT HEAD WITHOUT CONTRAST. HISTORY: Altered mental status COMPARISON: 01/26/2016. TECHNIQUE: Axial computed tomography images were obtained through the head/brain without intravenous contrast. Radiation dose: Total exam DLP = 823.45 mGy-cm. This CT exam was performed using one or more of the following dose reduction techniques: Automated exposure control, adjustment of the mA and/or kV according to patient size, and/or use of iterative reconstruction technique. FINDINGS: HEMORRHAGE: No intracranial hemorrhage. BRAIN: There are mild chronic microangiopathic changes. There is no mass, mass effect or abnormal extra-axial fluid collection. There is no territorial infarction.There are coarse atherosclerotic calcifications in the cavernous carotid arteries. VENTRICLES: There is mild age-related global parenchymal volume loss and proportionate enlargement of the ventricles and cortical sulci. CALVARIUM: The skull base and calvarium are normal. PARANASAL SINUSES: Predominantly clear. MASTOID AIR CELLS: Predominantly clear. OTHER FINDINGS: None. IMPRESSION: No acute intracranial abnormality. Mild chronic microangiopathic changes and mild age-related global parenchymal volume loss.
[2017-02-26] MEDS ORDERED: Lactulose 10 gm/15 ml (Rectal Use) PR ONE (16:37)
--- NOTE | 2017-02-26 16:52 | CT ---
PROCEDURE: CT Chest, Abdomen and Pelvis without intravenous contrast HISTORY: hematemesis, abdominal distension COMPARISON: None. TECHNIQUE: Radiation dose: Total exam DLP = 1493 mGy-cm. This CT exam was performed using one or more of the following dose reduction techniques: Automated exposure control, adjustment of the mA and/or kV according to patient size, and/or use of iterative reconstruction technique. FINDINGS: CT CHEST WITHOUT CONTRAST: LUNGS: Mild emphysematous changes are seen in both lungs as well as minimal ground-glass densities. No focal mass or consolidation MEDIASTINUM: Unremarkable. Normal caliber aorta and pulmonary arterial trunk. Normal size heart. LYMPH NODES: Unremarkable. PLEURA: Unremarkable. No pneumothorax. No pleural fluid. BONES: Unremarkable. OTHER FINDINGS: None. CT ABDOMEN AND PELVIS: LIVER: The liver is small in size. There is minimal contour abnormality. Possible cirrhosis GALLBLADDER AND BILE DUCTS: Unremarkable. PANCREAS: Unremarkable. No gross lesion or ductal dilatation. SPLEEN: Splenic varices are seen suggesting portal hypertension. ADRENALS: Unremarkable. No mass. KIDNEYS AND URETERS: Unremarkable. No hydronephrosis. No solid mass. VASCULATURE: Extensive vascular calcification can be seen throughout the aorta and pelvic vessels. BOWEL: There is mild mural thickening in the small bowel which could represent inflammatory bowel disease or enteritis. There is no evidence of obstruction. APPENDIX: Normal appendix. PERITONEUM: Unremarkable. No free fluid. No free air. LYMPH NODES: Unremarkable. No enlarged lymph nodes. BLADDER: Unremarkable. REPRODUCTIVE: Unremarkable. BONES: No acute fracture. OTHER FINDINGS: None. IMPRESSION: Mild mural thickening in the small bowel consistent with enteritis or inflammatory bowel disease. Emphysematous changes in the lungs. Splenic varices and possible cirrhosis
--- NOTE | 2017-02-26 17:10 | CP.PCM.CON ---
<GalanFay mortensen - Last Filed: 02/26/17 17:59> History of Present Illness - History of Present Illness History of Present Illness: PGY4 Initial GI Consult Hank Yuan is a 56M w/ hx of HTN, and ETOH abuse who presented with hematemsis and coffee-ground emesis. Pt was confused upon my assessment so most of the information was gathered from EMR, ER physcian, and staff. According to the , he started having hematemesis for 2 days, which then transitioned to coffee-ground emesis. He also reportedly had melena. His urged him to go to the hospital 2 days ago, but he refused. He has a significant hx of ETOH use ~ 6-8 16oz beers daily for 20-30+ years. According to his , he has never been hospitalized for Etoh and Liver issues. Pt denies any abd pain or BRBPR. According to , he has never had an EGD. His last alcoholic drink was 3 days ago. HE has attempted to quit in the past. Upon arrival to the ER, he had x1 episode of coffee-ground emesis. His BP has been stable since admission. He was started on PPI, octreotide, and abx. Pt was admitted to the ICU for closer monitoring. PMhx: HTN, Etoh use FHx: NC Meds: patient cannot recall BP meds, ASA ROS: 12 point ERIN conducted, otherwise neg Past Patient History - Infectious Disease Hx of Infectious Diseases: None - Past Social History Smoking Status: Heavy Smoker > 10 Cigarettes Daily - CARDIAC Hx Cardiac Disorders: Yes Hx Hypertension: Yes - PULMONARY Hx Respiratory Disorders: No - NEUROLOGICAL Hx Neurological Disorder: No - HEENT Hx HEENT Problems: No - RENAL Hx Chronic Kidney Disease: No - ENDOCRINE/METABOLIC Hx Endocrine Disorders: No - HEMATOLOGICAL/ONCOLOGICAL Hx Blood Disorders: No - INTEGUMENTARY Hx Dermatological Problems: No - MUSCULOSKELETAL/RHEUMATOLOGICAL Hx Musculoskeletal Disorders: No - GASTROINTESTINAL Hx Gastrointestinal Disorders: No Hx Bowel Surgery: No - GENITOURINARY/GYNECOLOGICAL Hx Genitourinary Disorders: No - PSYCHIATRIC Hx Psychophysiologic Disorder: No Hx Depression: No Hx Emotional Abuse: No Hx Physical Abuse: No Hx Substance Use: No - SURGICAL HISTORY Hx Orthopedic Surgery: Yes (knee) - ANESTHESIA Hx Anesthesia Reactions: No Meds Allergies/Adverse Reactions: Allergies Allergy/AdvReac Type Severity Reaction Status Date / Time No Known Allergies Allergy Verified 02/26/17 14:21 - Medications Medications: Current Medications Octreotide Acetate 1,250 mcg/ (Sodium Chloride) 252.5 mls @ 10.1 mls/hr IV .Q24H ED; 50 MCG/HR PRN Reason: Protocol Sodium Chloride (Sodium Chloride 0.9%) 1,000 mls @ 250 mls/hr IV .Q4H ONE Stop: 02/26/17 19:17 Pantoprazole Sodium (Protonix 40mg Ivpb) 40 mg in 100 mls @ 20 mls/hr IVPB .Q5H ED Vancomycin HCl (Vancomycin 1gm) 1 gm in 250 mls @ 167 mls/hr IVPB Q12H ED PRN Reason: Protocol Piperacillin Sod/Tazobactam Sod (Zosyn 3.375 In Ns 100ml) 100 mls @ 200 mls/hr IVPB Q8 ED PRN Reason: Protocol Stop: 02/27/17 06:29 Lactulose (Enulose) 30 gm PO Q4H ED Lorazepam (Ativan) 2 mg IVP Q6H PRN; Protocol PRN Reason: Anxiety Physical Exam - Constitutional Appears: No Acute Distress, Unkempt, Confused - Head Exam Head Exam: ATRAUMATIC, NORMOCEPHALIC - Eye Exam Additional comments: sceral ictus - ENT Exam ENT Exam: Mucous Membranes Moist Additional comments: coffee ground on his lips - Respiratory Exam Respiratory Exam: Clear to Auscultation Bilateral, NORMAL BREATHING PATTERN. absent: Rales, Rhonchi, Wheezes, Respiratory Distress - Cardiovascular Exam Cardiovascular Exam: REGULAR RHYTHM, +S1, +S2 - GI/Abdominal Exam GI & Abdominal Exam: Normal Bowel Sounds, Soft. absent: Distended, Firm, Guarding, Hernia, Rebound, Rigid - Extremities Exam Extremities exam: Negative for: joint swelling, pedal edema - Neurological Exam Neurological exam: Alert, Altered - Psychiatric Exam Psychiatric exam: Normal Affect, Normal Mood - Skin Skin Exam: Dry, Erythema, Warm Additional comments: slightly juandice Results - Vital Signs Recent Vital Signs: Last Vital Signs Temp 99.2 F 02/26/17 13:29 Pulse 123 H 02/26/17 15:05 Resp 24 02/26/17 15:05 BP 161/108 H 02/26/17 15:05 Pulse Ox 94 L 02/26/17 15:05 - Labs Result Diagrams: 02/26/17 13:57 02/26/17 13:57 Labs: Laboratory Results - last 24 hr 02/26/17 15:00 Blood Type Confirm A POSITIVE Assessment & Plan - Assessment and Plan (Free Text) Assessment: Hank Yuan is a 56M with a hx of HTN, HL, alcohol abuse who presents with upper GI bleed. DDx: variceal bleed vs PUD vs AVM vs malignancy. 1. Upper GI bleed, hemodynamically stable 2. Coffee-ground emesis 2/2 to the above 3. Alcoholic Hepatitis 4. Etoh abuse 5. ETOH withdrawl vs hepatic enceph 6. Coagulopathy Plan: -agree with ICU admission -continue PPI drip at 8 mg/hr , s/p 80mg bolus -continue ocreotide drip -continue abx as per critical care -MELD:35 DF:49, will hold on steroids for now -CIWA protocol -start lactulose PO abd enema -okay for clears -NPO after midnight -EGD tomorrow -Spoke with , discussed the risk vs benefits; is agreeable to procedure -will consider transfer for [facility] tomorrow -Agree with FFP, and Vit K -Hold on PRBC unless pt starts actively bleeding or hgb < 8 or hemodynmically unstable -Recommend cardiac consult for increase in troponins D/W Dr. Whaley and agrees with the above <Riley Whaley - Last Filed: 02/26/17 18:25> Meds - Medications Medications: Current Medications Octreotide Acetate 1,250 mcg/ (Sodium Chloride) 252.5 mls @ 10.1 mls/hr IV .Q24H ED; 50 MCG/HR PRN Reason: Protocol Last Admin: 02/26/17 15:41 Dose: 50 mcg/hr, 10.1 mls/hr Pantoprazole Sodium (Protonix 40mg Ivpb) 40 mg in 100 mls @ 20 mls/hr IVPB .Q5H ED Last Admin: 02/26/17 17:31 Dose: 20 mls/hr Vancomycin HCl (Vancomycin 1gm) 1 gm in 250 mls @ 167 mls/hr IVPB Q12H ED PRN Reason: Protocol Piperacillin Sod/Tazobactam Sod (Zosyn 3.375 In Ns 100ml) 100 mls @ 200 mls/hr IVPB Q8 DE PRN Reason: Protocol Stop: 02/27/17 06:29 Lactulose (Enulose) 30 gm PO Q4H ED Last Admin: 02/26/17 17:43 Dose: 30 gm Lorazepam (Ativan) 2 mg IVP Q6H ED PRN Reason: Protocol Last Admin: 02/26/17 18:09 Dose: 2 mg Results - Vital Signs Recent Vital Signs: Last Vital Signs Temp 99.2 F 02/26/17 13:29 Pulse 120 H 02/26/17 16:00 Resp 24 02/26/17 15:05 BP 161/108 H 02/26/17 15:05 Pulse Ox 94 L 02/26/17 15:05 - Labs Result Diagrams: 02/26/17 13:57 02/26/17 13:57 Labs: Laboratory Results - last 24 hr 02/26/17 15:00 Blood Type Confirm A POSITIVE Attending/Attestation - Attestation I have personally seen and examined this patient.: Yes I have fully participated in the care of the patient.: Yes I have reviewed all pertinent clinical information: Yes Notes (Text): 02/26/17 18:24 56 year old male with h/o EtOH abuse admitted with UGIB. 1. Upper GI bleeding 2. Alcoholic hepatitis Plan: -recommend PPI drip adn Octreotide drip -recommend abx for SBP proph in setting of GI bleed with liver dz -transfuse FFP, goal INR < 1.5 -give vitamin k -start lactulose for HE -NPO after MN -cardiac clearance for EGD tomorrow
[2017-02-26] MEDS: Pantoprazole 40mg/100ml IVPB 40 MG/100 ML BAG IVPB SCH ×2 (17:31→20:33)
[2017-02-26 18:30] VITALS: BMI 26.9
[2017-02-26] MEDS ORDERED: Pneumococcal 23-Valent Vaccine IM ONE (18:31)
--- NOTE | 2017-02-26 19:03 | US ---
HISTORY: RUQ US COMPARISON: None. TECHNIQUE: Sonographic evaluation of the abdomen. FINDINGS: LIVER: Measures 15.7 cm. Heterogeneously increased echogenicity of the liver parenchyma. This may reflect fatty infiltrate and/ hepatic cellular disease. Nodular contour suggestive of hepatic cirrhosis. GALLBLADDER: Partially contracted. No calculi. Minimal mural thickening common nonspecific. No pericholecystic fluid. Negative sonographic Phillips sign. COMMON BILE DUCT: Measures 5 mm. No stones. No dilatation. PANCREAS: Unremarkable as visualized. No mass. No ductal dilatation. RIGHT KIDNEY: Measures 13.2cm. Normal echogenicity. No calculus, mass, or hydronephrosis. LEFT KIDNEY: Measures 14.7. Cm. Upper pole exophytic cortical cyst, 1.8 cm. Normal cortical echogenicity. No calculus or hydronephrosis. SPLEEN: Normal in size and contour. No mass. AORTA: No aneurysmal dilatation. IVC: Unremarkable. OTHER FINDINGS: None. IMPRESSION: Probable hepatic cellular disease. Possible fatty infiltration of the liver. Incidental 1.8 cm exophytic left upper pole renal cortical cyst. No evidence of cholelithiasis or cholecystitis.
[2017-02-26 19:44] LABS: VENOUS BLOOD GAS BASE EXCESS 4.7 mmol/L (0.0-2.0); VENOUS BLOOD PH 7.45 (7.32-7.43)
[2017-02-26 19:58] LABS: BASO # 0.01 K/mm3 (0.0-2.0); BASO % 0.1 % (0.0-3.0); GRAN # 6.68 (1.4-6.5); GRAN % 61.1 % (50.0-68.0); HEMATOCRIT 24.6 % (42.0-52.0); LYMPH # 2.7 (1.2-3.4); LYMPH % 24.8 % (22.0-35.0); MEAN CELL VOLUME 107.9 fl (80.0-105.0); MEAN CORPUSCULAR HEMOGLOBIN 36.8 pg (25.0-35.0); MEAN CORPUSCULAR HGB CONC 34.1 g/dl (31.0-37.0); MEAN PLATELET VOLUME 10.3 fl (7.0-11.0); MONO # 1.5 (0.1-0.6); WHITE BLOOD COUNT 10.9 10^3/ul (4.5-11.0)
[2017-02-26 20:04] LABS: INR 2.15 (0.93-1.08)
[2017-02-26 20:14] LABS: TROPONIN I 0.45 ng/mL
[2017-02-26] MEDS: Piperacillin/Tazobact 3.375 gm 100 ML IVPB SCH (22:53)
[2017-02-27] MEDS: Pantoprazole 40mg/100ml IVPB 40 MG/100 ML BAG IVPB SCH ×4 (01:34→19:29)
[2017-02-27] MEDS: Vancomycin 1gm in NS 250ml 1 GM/250 ML BAG IVPB SCH ×2 (03:17→16:22)
[2017-02-27] MEDS: Piperacillin/Tazobact 3.375 gm 100 ML IVPB SCH ×2 (05:34→18:38)
[2017-02-27 06:15] LABS: BASO # 0.03 K/mm3 (0.0-2.0); BASO % 0.3 % (0.0-3.0); EOS % 0.2 % (1.5-5.0); GRAN # 5.42 (1.4-6.5); GRAN % 54.8 % (50.0-68.0); MEAN CORPUSCULAR HEMOGLOBIN 36.8 pg (25.0-35.0); MEAN CORPUSCULAR HGB CONC 33.8 g/dl (31.0-37.0); MEAN PLATELET VOLUME 10.2 fl (7.0-11.0); MONO # 1.5 (0.1-0.6); MONO % 14.7 % (1.0-6.0); RED CELL DISTRIBUTION WIDTH 15.4 % (11.5-14.5); WHITE BLOOD COUNT 9.9 10^3/ul (4.5-11.0)
[2017-02-27 06:17] LABS: ALB/GLOB RATIO 0.8 (1.1-1.8); ALKALINE PHOSPHATASE 75 U/L (38-126); ALT/SGPT 411 U/L (7-56); BLOOD UREA NITROGEN 31 mg/dL (7-21); CALCIUM 7.6 mg/dL (8.4-10.5); CARBON DIOXIDE 37 mmol/L (21-33); CHLORIDE 98 mmol/L (98-107); GFR AFRICAN-AMERICAN > 60; GLUCOSE,RANDOM 127 mg/dL (70-110); PHOSPHOROUS 2.2 mg/dL (2.5-4.5); POTASSIUM 3.9 mmol/L (3.6-5.0); SODIUM 138 mmol/L (132-148); TOTAL PROTEIN 5.7 g/dL (5.8-8.3)
[2017-02-27 06:26] LABS: HEMATOCRIT 21.9 % (42.0-52.0)
[2017-02-27 06:52] LABS: TROPONIN I 0.21 ng/mL
[2017-02-27 07:02] LABS: AST/SGOT 1312 U/L (17-59)
--- NOTE | 2017-02-27 08:51 | CP.PCM.PN ---
<Lila Alvarenga - Last Filed: 02/27/17 13:29> Subjective - Date & Time of Evaluation Date of Evaluation: 02/27/17 Time of Evaluation: 08:50 - Subjective Subjective: Hospitalist Service Progress Note: Patient seen and examined at bedside. Received 2 units of FFP yesterday. Patient for EGD today with GI. Patient is currently somnolent. Responds to verbal stimuli. Doesn't want to be woken up. Currently has no complaints. Patient had 2 BMs. Objective - Vital Signs/Intake and Output Vital Signs (last 24 hours): Temp Pulse Resp BP Pulse Ox 99.2 F 101 H 18 135/72 99 02/26/17 18:21 02/27/17 05:10 02/27/17 05:10 02/27/17 05:00 02/27/17 05:10 Intake and Output: 02/27/17 02/27/17 06:59 18:59 Intake Total 1360 Output Total 750 Balance 610 - Medications Medications: Current Medications Octreotide Acetate 1,250 mcg/ (Sodium Chloride) 252.5 mls @ 10.1 mls/hr IV .Q24H ED; 50 MCG/HR PRN Reason: Protocol Last Admin: 02/26/17 15:41 Dose: 50 mcg/hr, 10.1 mls/hr Pantoprazole Sodium (Protonix 40mg Ivpb) 40 mg in 100 mls @ 20 mls/hr IVPB .Q5H ED Last Admin: 02/27/17 08:30 Dose: 20 mls/hr Vancomycin HCl (Vancomycin 1gm) 1 gm in 250 mls @ 167 mls/hr IVPB Q12H ED PRN Reason: Protocol Last Admin: 02/27/17 03:17 Dose: 167 mls/hr Piperacillin Sod/Tazobactam Sod (Zosyn 3.375 In Ns 100ml) 100 mls @ 200 mls/hr IVPB Q6 ED PRN Reason: Protocol Stop: 02/27/17 18:29 Lactulose (Enulose) 30 gm PO Q4H ED Last Admin: 02/27/17 05:33 Dose: Not Given Lorazepam (Ativan) 2 mg IVP Q6H ED PRN Reason: Protocol Last Admin: 02/27/17 03:16 Dose: 2 mg - Labs Labs: 02/27/17 05:50 02/27/17 05:40 PT 21.6 Seconds (9.9-11.8) H 02/27/17 05:40 INR 2.00 (0.93-1.08) H 02/27/17 05:40 APTT 40.0 Seconds (23.7-30.8) H 02/27/17 05:40 - Constitutional Appears: Non-toxic, No Acute Distress - Head Exam Head Exam: ATRAUMATIC, NORMAL INSPECTION, NORMOCEPHALIC - Eye Exam Eye Exam: EOMI, Normal appearance - ENT Exam ENT Exam: Mucous Membranes Moist - Neck Exam Neck Exam: Full ROM - Respiratory Exam Respiratory Exam: Clear to Ausculation Bilateral, NORMAL BREATHING PATTERN. absent: Rales, Rhonchi, Wheezes - Cardiovascular Exam Cardiovascular Exam: REGULAR RHYTHM, +S1, +S2 - GI/Abdominal Exam GI & Abdominal Exam: Soft. absent: Guarding, Rigid, Tenderness, Rebound - Rectal Exam Rectal Exam: Deferred - Extremities Exam Extremities Exam: Full ROM, Normal Inspection. absent: Calf Tenderness - Back Exam Back Exam: NORMAL INSPECTION - Neurological Exam Neurological Exam: Alert, Awake. absent: Oriented x3 - Psychiatric Exam Psychiatric exam: Normal Affect, Normal Mood - Skin Skin Exam: Normal Color, Warm Assessment and Plan - Assessment and Plan (Free Text) Assessment: 56 year old male with past medical history of alcohol abuse and HTN presents to the ED for GI bleed and alcohol withdrawal. Plan: 1. Acute Upper GI Bleed -Will admit to ICU for close monitoring -Hgb on admission 9.6 (baseline 15-16); Hgb currently 7.4 -Going for EGD today with GI -Continue Octreotide drip, high possibility for varicies -Continue protonix drip -Continue IVF hydration -Abx: Vanco and zosyn -CBC q6h -Patient type and cross matched, will hold off on transfusing for now -Monitor for signs of bleeding -CT abd/pelvis: mural thickening in small bowel c.w enteritis or IBD, splenic varicies + possibly cirrhosis -GI on consult f/u recommendations 2. Altered Mental Status 2/2 hepatic encephalopathy vs alcohol withdrawal -Awake and alert (not orientated to place or time) -Head CT ordered: no acute pathology (see full report) -Ammonia level on admission 107 -Continue Lactulose titrated to BMs -UDS ordered 3. Alcohol withdrawal; Hx of alcohol abuse -Alcohol level on admission <10 -Ativan 2mg Q4H prn -CIWA protocol, seizure precautions, aspiration precautions 4. Acute Liver Failure/Transaminitis -Received Vitamin K in the ED -S/P 2 units FFP yesterday; 2 more units ordered this morning -Liver enzymes worsening; AST/ALT 1312/411; INR 2.0 -Avoid hepatotoxic agents -RUQ US: heptocellular disease -Patient to be transferred to [facility] per GI recommendations 5. Lactic acidosis Type B -Lactate 12.4 on admission, trending down 7.7 -Likely secondary to hypoperfusion/liver disease -IVF hydration -Abx: vanco and zosyn -F/U romero cultures 6. Elevated troponin likely 2/2 demand ischemia in the setting of Acute GI bleed -Troponin 0.34 - 0.45 - 0.21 -EKG sinus tachycardia on admission -Cardiology consulted, f/u recommendations 7. Thrombocytopenia 2/2 alcoholic liver disease -Platelets 79 on admission -Worsening, today platelets 47 -Will transfuse 1 unit platelets today -Will continue to monitor 8. Hx of Hypertension -Currently normatensive -Hold BP medications -Will continue to monitor 9. Electrolyte imbalance -Will monitor closely and replete as needed GI/DVT PPx -Protonix drip -SCDs <Madhu Watters - Last Filed: 02/27/17 15:44> Objective - Vital Signs/Intake and Output Vital Signs (last 24 hours): Temp Pulse Resp BP Pulse Ox 97.9 F 108 H 22 133/61 96 02/27/17 13:33 02/27/17 15:10 02/27/17 15:10 02/27/17 13:48 02/27/17 15:10 Intake and Output: 02/27/17 02/27/17 06:59 18:59 Intake Total 1360 205 Output Total 750 Balance 610 205 - Medications Medications: Current Medications Octreotide Acetate 1,250 mcg/ (Sodium Chloride) 252.5 mls @ 10.1 mls/hr IV .Q24H ED; 50 MCG/HR PRN Reason: Protocol Last Admin: 02/26/17 15:41 Dose: 50 mcg/hr, 10.1 mls/hr Pantoprazole Sodium (Protonix 40mg Ivpb) 40 mg in 100 mls @ 20 mls/hr IVPB .Q5H ED Last Admin: 02/27/17 08:30 Dose: 20 mls/hr Vancomycin HCl (Vancomycin 1gm) 1 gm in 250 mls @ 167 mls/hr IVPB Q12H ED PRN Reason: Protocol Last Admin: 02/27/17 03:17 Dose: 167 mls/hr Piperacillin Sod/Tazobactam Sod (Zosyn 3.375 In Ns 100ml) 100 mls @ 200 mls/hr IVPB Q6 ED PRN Reason: Protocol Stop: 03/08/17 18:01 Lorazepam (Ativan) 2 mg IVP Q6H PRN; Protocol PRN Reason: Withdrawal - Labs Labs: 02/27/17 11:35 02/27/17 05:40 PT 21.6 Seconds (9.9-11.8) H 02/27/17 05:40 INR 2.00 (0.93-1.08) H 02/27/17 05:40 APTT 40.0 Seconds (23.7-30.8) H 02/27/17 05:40 Attending/Attestation - Attestation I have personally seen and examined this patient.: Yes I have fully participated in the care of the patient.: Yes I have reviewed all pertinent clinical information, including history, physical exam and plan: Yes Notes (Text): 02/27/17 15:32 attending note; Patient seen and examined with resident in ICU. Patient is 56 year old male with PMH of HTN, ETOH abuse(>6 beers per day x 30y) presents with hematemesis and AMS. GI bleed; Hb is slowly dropping.Transfuse if hb<7. Continue IV Protonix and IV octerotide. plan for egd today. transfuse 1 unit of platelet and 2 units of FFP. the patient got 2 units of FFP last night. altered mental status; secondary to hepatic encephalopathy/alcohol withdrawal. Got 1 dose of IV Ativan this morning. CT head is negative for hemorrhage. Elevated LFTs; acute alcoholic hepatitis. GI evaluation Appreciated. Thrombocytopenia; secondary to chronic alcohol abuse. Platelet count is dropping. Transfuse 1 unit today. lactic acidosis; secondary to hypoperfusion/liver disease. resolving. Patient is afebrile and nontoxic. continue vancomycin and Zosyn. patient will be closely monitored in ICU. addendum; Patient had EGD today. EGD showed severe esophagitis, gastric ulcer, portal gastropathy. no active bleeding noted. purple discoloration and severe congestion in the gastric fundus suggesting possible ischemia. Case discussed with Dr. Renato Bennett in detail. Plan for angiogram today. Surgery evaluation requested. Case discussed with GI in detail. Patient's daughter by the bedside. The diagnosis and treatment options discussed with patient's daughter in detail. Case discussed with [facility] GI team by GI follow-up. Possible transfer once bed available.
--- NOTE | 2017-02-27 09:37 | CP.CCUPN ---
<Oscar Ovalle - Last Filed: 02/27/17 09:52> CCU Subjective - Physician Review Subjective (Free Text): 02/27/17 09:34 Patient s/e at bedside this AM. No acute events overnight reported. Patient was not noted to be agitated and resting comfortably most of the night. Pt recieved FFP x2 overnight. Troponin trended down. Lactulose given produced 2 BM. When speaking with patient he is responsive to verbal stimuli and does minimally participate in interview. Patient has no complaints at time of interview, denies chest pain, shob, ab pain, n/v/f/c. Patient is tentatively scheduled for EGD with GI. CCU Objective - Vital Signs / Intake & Output Intake and Output (Last 8hrs): Intake & Output 02/26/17 02/27/17 02/27/17 22:59 06:59 14:59 Intake Total 240 1120 Output Total 750 Balance 240 370 Weight 204 lb Intake: IV 240 1120 Protonix 40 meds 200 1120 Output: Urine 750 Urine, Voided 750 Other: # Voids Urine, Voided 1 # Bowel Movements 2 - Physical Exam Head: Positive for: Atraumatic, Normocephalic Pupils: Positive for: PERRL Extroacular Muscles: Positive for: EOMI Conjunctiva: Positive for: Normal Mouth: Positive for: Dry, Other (dark dried blood noted around mouth ) Neck: Positive for: Normal Range of Motion Respiratory/Chest: Positive for: Clear to Auscultation, Wheezes (expiratory on Right ), Rales (bilateral at bases ). Negative for: Respiratory Distress Cardiovascular: Positive for: Regular Rate and Rhythm, Normal S1, S2. Negative for: Murmurs Abdomen: Positive for: Normal Bowel Sounds. Negative for: Tenderness, Distention, Peritoneal Signs Upper Extremity: Positive for: Normal Inspection. Negative for: Cyanosis, Edema Lower Extremity: Positive for: Normal Inspection. Negative for: Edema Neurological: Positive for: CN II-XII Intact, Speech Normal Skin: Positive for: Warm - Medications Active Medications: Active Medications Generic Name Dose Route Start Last Admin Trade Name Freq PRN Reason Stop Dose Admin Octreotide Acetate 1,250 mcg/ 252.5 mls @ 10.1 mls/hr 02/26/17 15:15 15:41 Sodium Chloride IV 50 mcg/hr .Q24H ED 10.1 mls/hr Protocol Administration 50 MCG/HR Pantoprazole Sodium 40 mg in 100 mls @ 20 mls/hr 02/26/17 16:45 02/27/17 08: 30 Protonix 40mg Ivpb IVPB 20 mls/hr .Q5H ED Administration Vancomycin HCl 1 gm in 250 mls @ 167 mls/hr 02/27/17 03:00 02/27/17 03:17 Vancomycin 1gm IVPB 167 mls/hr Q12H ED Administration Protocol Piperacillin Sod/Tazobactam Sod 100 mls @ 200 mls/hr 02/27/17 12:00 Zosyn 3.375 In Ns 100ml IVPB 02/27/17 18:29 Q6 ED Protocol Lactulose 30 gm 02/26/17 16:36 02/27/17 05:33 Enulose PO Not Given Q4H ED Lorazepam 2 mg 02/26/17 17:45 02/27/17 03:16 Ativan IVP 2 mg Q6H ED Administration Protocol - Patient Studies Lab Studies: Lab Studies 02/27/17 02/27/17 02/27/17 Range/Units 06:39 05:50 05:40 WBC 9.9 (4.5-11.0) 10^3/ul RBC 2.01 L (3.5-6.1) 10^6/uL Hgb 7.4 L (14.0-18.0) g/dL Hct 21.9 L (42.0-52.0) % MCV 109.0 H (80.0-105.0) fl MCH 36.8 H (25.0-35.0) pg MCHC 33.8 (31.0-37.0) g/dl RDW 15.4 H (11.5-14.5) % Plt Count 47 L* (120.0-450.0) 10^3/uL MPV 10.2 (7.0-11.0) fl Gran % 54.8 (50.0-68.0) % Lymph % (Auto) 30.0 (22.0-35.0) % [place] % (Auto) 14.7 H (1.0-6.0) % Eos % (Auto) 0.2 L (1.5-5.0) % Baso % (Auto) 0.3 (0.0-3.0) % Gran # 5.42 (1.4-6.5) Lymph # 3.0 (1.2-3.4) [place] # 1.5 H (0.1-0.6) Eos # 0.0 (0.0-0.7) Baso # 0.03 (0.0-2.0) K/mm3 PT (9.9-11.8) Seconds INR (0.93-1.08) APTT (23.7-30.8) Seconds pO2 (30-55) mm/Hg VBG pH (7.32-7.43) VBG pCO2 (40-60) VBG HCO3 (21-28) mmol/l VBG Total CO2 (22-28) mmol.L VBG O2 Sat (Calc) (40-65) % VBG Base Excess (0.0-2.0) mmol/L VBG Potassium (3.6-5.2) mmol/L Sodium 138 (132-148) mmol/L Chloride 98 (98-107) mmol/L Glucose (75-110) mg/dl Lactate (0.7-2.1) mmol/L FiO2 % Potassium 3.9 (3.6-5.0) mmol/L Carbon Dioxide 37 H (21-33) mmol/L Anion Gap 7 L (10-20) BUN 31 H (7-21) mg/dL Creatinine 0.8 (0.8-1.5) mg/dL Est GFR ( Amer) > 60 Est GFR (Non-Af Amer) > 60 POC Glucose (mg/dL) 122 H (65-110) mg/dL Random Glucose 127 H (70-110) mg/dL Lactic Acid (0.7-2.1) mmol/L Calcium 7.6 L (8.4-10.5) mg/dL Phosphorus 2.2 L (2.5-4.5) mg/dL Magnesium 2.0 (1.7-2.2) mg/dL Total Bilirubin 5.0 H (0.2-1.3) mg/dL AST 1312 H (17-59) U/L ALT 411 H (7-56) U/L Alkaline Phosphatase 75 (38-126) U/L Lactate Dehydrogenase (333-699) U/L Total Creatine Kinase (35-230) U/L CK-MB (CK-2) (0.0-3.6) ng/mL CK-MB (CK-2) % (2.5-3.0) % Troponin I 0.21 H* D ng/mL Total Protein 5.7 L (5.8-8.3) g/dL Albumin 2.5 L (3.0-4.8) g/dL Globulin 3.2 gm/dL Albumin/Globulin Ratio 0.8 L (1.1-1.8) Venous Blood Potassium (3.6-5.2) mmol/L Blood Type Confirm 02/27/17 02/27/17 02/26/17 Range/Units 05:40 00:40 19:39 WBC 10.9 (4.5-11.0) 10^3/ul RBC 2.28 L (3.5-6.1) 10^6/uL Hgb 8.4 L (14.0-18.0) g/dL Hct 24.6 L (42.0-52.0) % MCV 107.9 H (80.0-105.0) fl MCH 36.8 H (25.0-35.0) pg MCHC 34.1 (31.0-37.0) g/dl RDW 15.0 H (11.5-14.5) % Plt Count 66 L (120.0-450.0) 10^3/uL MPV 10.3 (7.0-11.0) fl Gran % 61.1 (50.0-68.0) % Lymph % (Auto) 24.8 (22.0-35.0) % [place] % (Auto) 14.0 H (1.0-6.0) % Eos % (Auto) 0.0 L (1.5-5.0) % Baso % (Auto) 0.1 (0.0-3.0) % Gran # 6.68 H (1.4-6.5) Lymph # 2.7 (1.2-3.4) [place] # 1.5 H (0.1-0.6) Eos # 0.0 (0.0-0.7) Baso # 0.01 (0.0-2.0) K/mm3 PT 21.6 H (9.9-11.8) Seconds INR 2.00 H (0.93-1.08) APTT 40.0 H 36.1 H (23.7-30.8) Seconds pO2 (30-55) mm/Hg VBG pH (7.32-7.43) VBG pCO2 (40-60) VBG HCO3 (21-28) mmol/l VBG Total CO2 (22-28) mmol.L VBG O2 Sat (Calc) (40-65) % VBG Base Excess (0.0-2.0) mmol/L VBG Potassium (3.6-5.2) mmol/L Sodium (132-148) mmol/L Chloride (98-107) mmol/L Glucose (75-110) mg/dl Lactate (0.7-2.1) mmol/L FiO2 % Potassium (3.6-5.0) mmol/L Carbon Dioxide (21-33) mmol/L Anion Gap (10-20) BUN (7-21) mg/dL Creatinine (0.8-1.5) mg/dL Est GFR ( Amer) Est GFR (Non-Af Amer) POC Glucose (mg/dL) (65-110) mg/dL Random Glucose (70-110) mg/dL Lactic Acid (0.7-2.1) mmol/L Calcium (8.4-10.5) mg/dL Phosphorus (2.5-4.5) mg/dL Magnesium (1.7-2.2) mg/dL Total Bilirubin (0.2-1.3) mg/dL AST (17-59) U/L ALT (7-56) U/L Alkaline Phosphatase (38-126) U/L Lactate Dehydrogenase (333-699) U/L Total Creatine Kinase (35-230) U/L CK-MB (CK-2) (0.0-3.6) ng/mL CK-MB (CK-2) % (2.5-3.0) % Troponin I ng/mL Total Protein (5.8-8.3) g/dL Albumin (3.0-4.8) g/dL Globulin gm/dL Albumin/Globulin Ratio (1.1-1.8) Venous Blood Potassium (3.6-5.2) mmol/L Blood Type Confirm 02/26/17 02/26/17 02/26/17 Range/Units 19:39 19:39 19:39 WBC (4.5-11.0) 10^3/ul RBC (3.5-6.1) 10^6/uL Hgb (14.0-18.0) g/dL Hct (42.0-52.0) % MCV (80.0-105.0) fl MCH (25.0-35.0) pg MCHC (31.0-37.0) g/dl RDW (11.5-14.5) % Plt Count (120.0-450.0) 10^3/uL MPV (7.0-11.0) fl Gran % (50.0-68.0) % Lymph % (Auto) (22.0-35.0) % [place] % (Auto) (1.0-6.0) % Eos % (Auto) (1.5-5.0) % Baso % (Auto) (0.0-3.0) % Gran # (1.4-6.5) Lymph # (1.2-3.4) [place] # (0.1-0.6) Eos # (0.0-0.7) Baso # (0.0-2.0) K/mm3 PT 23.2 H (9.9-11.8) Seconds INR 2.15 H (0.93-1.08) APTT (23.7-30.8) Seconds pO2 52 (30-55) mm/Hg VBG pH 7.45 H (7.32-7.43) VBG pCO2 42.0 (40-60) VBG HCO3 29.2 H (21-28) mmol/l VBG Total CO2 30.5 H (22-28) mmol.L VBG O2 Sat (Calc) 90.6 H (40-65) % VBG Base Excess 4.7 H (0.0-2.0) mmol/L VBG Potassium 4.9 (3.6-5.2) mmol/L Sodium 136.0 (132-148) mmol/L Chloride 98.0 (98-107) mmol/L Glucose 110 (75-110) mg/dl Lactate 8.7 H* (0.7-2.1) mmol/L FiO2 21.0 % Potassium (3.6-5.0) mmol/L Carbon Dioxide (21-33) mmol/L Anion Gap (10-20) BUN (7-21) mg/dL Creatinine (0.8-1.5) mg/dL Est GFR ( Amer) Est GFR (Non-Af Amer) POC Glucose (mg/dL) (65-110) mg/dL Random Glucose (70-110) mg/dL Lactic Acid (0.7-2.1) mmol/L Calcium (8.4-10.5) mg/dL Phosphorus (2.5-4.5) mg/dL Magnesium (1.7-2.2) mg/dL Total Bilirubin (0.2-1.3) mg/dL AST (17-59) U/L ALT (7-56) U/L Alkaline Phosphatase (38-126) U/L Lactate Dehydrogenase 2772 H (333-699) U/L Total Creatine Kinase 327 H (35-230) U/L CK-MB (CK-2) 7.2 H (0.0-3.6) ng/mL CK-MB (CK-2) % 2.2 L (2.5-3.0) % Troponin I 0.45 H* D ng/mL Total Protein (5.8-8.3) g/dL Albumin (3.0-4.8) g/dL Globulin gm/dL Albumin/Globulin Ratio (1.1-1.8) Venous Blood Potassium 4.9 (3.6-5.2) mmol/L Blood Type Confirm 02/26/17 02/26/17 Range/Units 19:39 15:00 WBC (4.5-11.0) 10^3/ul RBC (3.5-6.1) 10^6/uL Hgb (14.0-18.0) g/dL Hct (42.0-52.0) % MCV (80.0-105.0) fl MCH (25.0-35.0) pg MCHC (31.0-37.0) g/dl RDW (11.5-14.5) % Plt Count (120.0-450.0) 10^3/uL MPV (7.0-11.0) fl Gran % (50.0-68.0) % Lymph % (Auto) (22.0-35.0) % [place] % (Auto) (1.0-6.0) % Eos % (Auto) (1.5-5.0) % Baso % (Auto) (0.0-3.0) % Gran # (1.4-6.5) Lymph # (1.2-3.4) [place] # (0.1-0.6) Eos # (0.0-0.7) Baso # (0.0-2.0) K/mm3 PT (9.9-11.8) Seconds INR (0.93-1.08) APTT (23.7-30.8) Seconds pO2 (30-55) mm/Hg VBG pH (7.32-7.43) VBG pCO2 (40-60) VBG HCO3 (21-28) mmol/l VBG Total CO2 (22-28) mmol.L VBG O2 Sat (Calc) (40-65) % VBG Base Excess (0.0-2.0) mmol/L VBG Potassium (3.6-5.2) mmol/L Sodium (132-148) mmol/L Chloride (98-107) mmol/L Glucose (75-110) mg/dl Lactate (0.7-2.1) mmol/L FiO2 % Potassium (3.6-5.0) mmol/L Carbon Dioxide (21-33) mmol/L Anion Gap (10-20) BUN (7-21) mg/dL Creatinine (0.8-1.5) mg/dL Est GFR ( Amer) Est GFR (Non-Af Amer) POC Glucose (mg/dL) (65-110) mg/dL Random Glucose (70-110) mg/dL Lactic Acid 7.7 H* (0.7-2.1) mmol/L Calcium (8.4-10.5) mg/dL Phosphorus (2.5-4.5) mg/dL Magnesium (1.7-2.2) mg/dL Total Bilirubin (0.2-1.3) mg/dL AST (17-59) U/L ALT (7-56) U/L Alkaline Phosphatase (38-126) U/L Lactate Dehydrogenase (333-699) U/L Total Creatine Kinase (35-230) U/L CK-MB (CK-2) (0.0-3.6) ng/mL CK-MB (CK-2) % (2.5-3.0) % Troponin I ng/mL Total Protein (5.8-8.3) g/dL Albumin (3.0-4.8) g/dL Globulin gm/dL Albumin/Globulin Ratio (1.1-1.8) Venous Blood Potassium (3.6-5.2) mmol/L Blood Type Confirm A POSITIVE Laboratory Results - last 24 hr 02/26/17 02/26/17 02/26/17 15:00 19:39 19:39 WBC RBC Hgb Hct MCV MCH MCHC RDW Plt Count MPV Gran % Lymph % (Auto) [place] % (Auto) Eos % (Auto) Baso % (Auto) Gran # Lymph # [place] # Eos # Baso # PT INR APTT pO2 52 VBG pH 7.45 H VBG pCO2 42.0 VBG HCO3 29.2 H VBG Total CO2 30.5 H VBG O2 Sat (Calc) 90.6 H VBG Base Excess 4.7 H VBG Potassium 4.9 Sodium 136.0 Chloride 98.0 Glucose 110 Lactate 8.7 H* FiO2 21.0 Potassium Carbon Dioxide Anion Gap BUN Creatinine Est GFR ( Amer) Est GFR (Non-Af Amer) POC Glucose (mg/dL) Random Glucose Lactic Acid 7.7 H* Calcium Phosphorus Magnesium Total Bilirubin AST ALT Alkaline Phosphatase Lactate Dehydrogenase Total Creatine Kinase CK-MB (CK-2) CK-MB (CK-2) % Troponin I Total Protein Albumin Globulin Albumin/Globulin Ratio Venous Blood Potassium 4.9 Blood Type Confirm A POSITIVE 02/26/17 02/26/17 02/26/17 19:39 19:39 19:39 WBC 10.9 RBC 2.28 L Hgb 8.4 L Hct 24.6 L MCV 107.9 H MCH 36.8 H MCHC 34.1 RDW 15.0 H Plt Count 66 L MPV 10.3 Gran % 61.1 Lymph % (Auto) 24.8 [place] % (Auto) 14.0 H Eos % (Auto) 0.0 L Baso % (Auto) 0.1 Gran # 6.68 H Lymph # 2.7 [place] # 1.5 H Eos # 0.0 Baso # 0.01 PT 23.2 H INR 2.15 H APTT pO2 VBG pH VBG pCO2 VBG HCO3 VBG Total CO2 VBG O2 Sat (Calc) VBG Base Excess VBG Potassium Sodium Chloride Glucose Lactate FiO2 Potassium Carbon Dioxide Anion Gap BUN Creatinine Est GFR ( Amer) Est GFR (Non-Af Amer) POC Glucose (mg/dL) Random Glucose Lactic Acid Calcium Phosphorus Magnesium Total Bilirubin AST ALT Alkaline Phosphatase Lactate Dehydrogenase 2772 H Total Creatine Kinase 327 H CK-MB (CK-2) 7.2 H CK-MB (CK-2) % 2.2 L Troponin I 0.45 H* D Total Protein Albumin Globulin Albumin/Globulin Ratio Venous Blood Potassium Blood Type Confirm 02/27/17 02/27/17 02/27/17 00:40 05:40 05:40 WBC RBC Hgb Hct MCV MCH MCHC RDW Plt Count MPV Gran % Lymph % (Auto) [place] % (Auto) Eos % (Auto) Baso % (Auto) Gran # Lymph # [place] # Eos # Baso # PT 21.6 H INR 2.00 H APTT 36.1 H 40.0 H pO2 VBG pH VBG pCO2 VBG HCO3 VBG Total CO2 VBG O2 Sat (Calc) VBG Base Excess VBG Potassium Sodium 138 Chloride 98 Glucose Lactate FiO2 Potassium 3.9 Carbon Dioxide 37 H Anion Gap 7 L BUN 31 H Creatinine 0.8 Est GFR ( Amer) > 60 Est GFR (Non-Af Amer) > 60 POC Glucose (mg/dL) Random Glucose 127 H Lactic Acid Calcium 7.6 L Phosphorus 2.2 L Magnesium 2.0 Total Bilirubin 5.0 H AST 1312 H ALT 411 H Alkaline Phosphatase 75 Lactate Dehydrogenase Total Creatine Kinase CK-MB (CK-2) CK-MB (CK-2) % Troponin I 0.21 H* D Total Protein 5.7 L Albumin 2.5 L Globulin 3.2 Albumin/Globulin Ratio 0.8 L Venous Blood Potassium Blood Type Confirm 02/27/17 02/27/17 05:50 06:39 WBC 9.9 RBC 2.01 L Hgb 7.4 L Hct 21.9 L MCV 109.0 H MCH 36.8 H MCHC 33.8 RDW 15.4 H Plt Count 47 L* MPV 10.2 Gran % 54.8 Lymph % (Auto) 30.0 [place] % (Auto) 14.7 H Eos % (Auto) 0.2 L Baso % (Auto) 0.3 Gran # 5.42 Lymph # 3.0 [place] # 1.5 H Eos # 0.0 Baso # 0.03 PT INR APTT pO2 VBG pH VBG pCO2 VBG HCO3 VBG Total CO2 VBG O2 Sat (Calc) VBG Base Excess VBG Potassium Sodium Chloride Glucose Lactate FiO2 Potassium Carbon Dioxide Anion Gap BUN Creatinine Est GFR ( Amer) Est GFR (Non-Af Amer) POC Glucose (mg/dL) 122 H Random Glucose Lactic Acid Calcium Phosphorus Magnesium Total Bilirubin AST ALT Alkaline Phosphatase Lactate Dehydrogenase Total Creatine Kinase CK-MB (CK-2) CK-MB (CK-2) % Troponin I Total Protein Albumin Globulin Albumin/Globulin Ratio Venous Blood Potassium Blood Type Confirm Fingerstick Blood Sugar Results: 139 Critical Care Progress Note - Nutrition Nutrition: Nutrition Category Date Time Status NPO Diet [DIET] Diets 02/26/17 Lunch Ordered Assessment/Plan - Assessment and Plan (Free Text) Assessment: Patient is 56yo male with PMH of HTN, on ASA, ETOH abuse(>6 beers per day x 30y) , presents with hematemesis and AMS. Pt was brought to ICU for observation and management of HD due to acute GI bleed and elevated troponins and coag profile. Plan: Neuro: AMS likely 2/2 Hepatic encephalopathy vs. ETOH withdrawl - Ammonia in ED 107, UDS ordered but no result in chart, Tox screen negative - CIWA protocol, Ativan 2mg Q6H, banana bag - Lactulose given, BM x2 overnight - Mentation improving, somnolent this AM likely 2/2 meds, will continue to monitor - Head CT in ED showing no acute intracranial abnormalities, mild chronic microangiopathic changes and mild age-related global parenchymal volume loss - Repeat Head CT if acute changes noticed - Consider Neurology evaluation if mentation does not improve with BM Pulm: SaO2> 92% on RA, stable - Phys Exam coarse breath sounds b/l CV: Hemodynamically stable, BP: 135/72 HR:100s Elevated Troponins - Trended down, 0.45 to 0.21 - Likely 2/2 demand ischemia - EKG in ED tachycardia w/ no ST segment elevations/depressions or T wave inversions - Cardiology consulted(Dr. Phillip) and following, appreciate recs - Echocardiogram GI: Upper GI bleed - Pt placed on protonix and octreotide gtt - Vanc and zosyn for sepsis and possible ppx for SBP - Vitamin K, FFP x2 given - Plt pheresis ordered - GI consulted(Dr. Whaley) and following, appreciate recs - EGD possibly for today - Holding steroids - Patient possible candidate for transfer to [facility], will monitor - Pt type and screened - Transfuse patient Hgb <7 or <8 if symptomatic Alcoholic Hepatitis - MELD score 35 - AST 1312, ALT 411 - Continue to monitor, ETOH cessation advised Renal: BUN/Cr: 31/0.8, stable Monitor electrolytes and replace as necessary - Mg sulfate, IVF ID: Sepsis on admission with SIRS w/ lactic acid 7.7 and elevated HR - Vanc and zosyn given in ED, continued therapy per protocol - Pt romero cultured - ID consulted (Dr. Taylor), appreciate recs PPX: GI - IV protonix, DVT - SCDs Dispo: ICU, GI EGD today pending results possible transfer to [facility] and plan discussed with attending, Dr. Rogel - Date & Time Date: 02/27/17 Time: 09:52 <Madhu Watters - Last Filed: 02/27/17 12:38> CCU Objective - Vital Signs / Intake & Output Vital Signs (Last 4 hours): Vital Signs Pulse Resp BP Pulse Ox 02/27/17 11:00 102 H 21 152/72 H 97 02/27/17 10:50 100 H 24 97 02/27/17 10:40 98 H 21 98 02/27/17 10:30 100 H 25 H 96 02/27/17 10:20 101 H 21 97 02/27/17 10:10 100 H 23 96 02/27/17 10:00 98 H 20 145/73 96 02/27/17 09:50 98 H 20 95 02/27/17 09:40 99 H 22 96 02/27/17 09:30 101 H 22 97 02/27/17 09:20 99 H 21 97 02/27/17 09:10 98 H 21 98 02/27/17 09:00 99 H 26 H 148/74 95 02/27/17 08:50 101 H 22 100 02/27/17 08:40 100 H 20 94 L Intake and Output (Last 8hrs): Intake & Output 02/26/17 02/27/17 02/27/17 22:59 06:59 14:59 Intake Total 240 1120 Output Total 750 Balance 240 370 Weight 204 lb Intake: IV 240 1120 Protonix 40 meds 200 1120 Output: Urine 750 Urine, Voided 750 Other: # Voids Urine, Voided 1 # Bowel Movements 2 - Medications Active Medications: Active Medications Generic Name Dose Route Start Last Admin Trade Name Freq PRN Reason Stop Dose Admin Octreotide Acetate 1,250 mcg/ 252.5 mls @ 10.1 mls/hr 02/26/17 15:15 15:41 Sodium Chloride IV 50 mcg/hr .Q24H ED 10.1 mls/hr Protocol Administration 50 MCG/HR Pantoprazole Sodium 40 mg in 100 mls @ 20 mls/hr 02/26/17 16:45 02/27/17 08: 30 Protonix 40mg Ivpb IVPB 20 mls/hr .Q5H ED Administration Vancomycin HCl 1 gm in 250 mls @ 167 mls/hr 02/27/17 03:00 02/27/17 03:17 Vancomycin 1gm IVPB 167 mls/hr Q12H ED Administration Protocol Piperacillin Sod/Tazobactam Sod 100 mls @ 200 mls/hr 02/27/17 12:00 Zosyn 3.375 In Ns 100ml IVPB 02/27/17 18:29 Q6 ED Protocol Lactulose 30 gm 02/26/17 16:36 02/27/17 09:06 Enulose PO Not Given Q4H ED Lactulose 200 gm 02/27/17 12:33 Generlac OR 02/27/17 12:34 ONCE ONE Lorazepam 2 mg 02/27/17 11:24 Ativan IVP Q6H PRN Withdrawal Protocol - Patient Studies Lab Studies: Lab Studies 02/27/17 02/27/17 02/27/17 Range/Units 11:35 06:39 05:50 WBC 8.4 9.9 (4.5-11.0) 10^3/ul RBC 2.21 L 2.01 L (3.5-6.1) 10^6/uL Hgb 8.2 L 7.4 L (14.0-18.0) g/dL Hct 23.7 L 21.9 L (42.0-52.0) % MCV 107.2 H 109.0 H (80.0-105.0) fl MCH 37.1 H 36.8 H (25.0-35.0) pg MCHC 34.6 33.8 (31.0-37.0) g/dl RDW 15.2 H 15.4 H (11.5-14.5) % Plt Count 47 L* 47 L* (120.0-450.0) 10^3/uL MPV 10.3 10.2 (7.0-11.0) fl Gran % 65.3 54.8 (50.0-68.0) % Lymph % (Auto) 24.0 30.0 (22.0-35.0) % [place] % (Auto) 9.1 H 14.7 H (1.0-6.0) % Eos % (Auto) 0.2 L 0.2 L (1.5-5.0) % Baso % (Auto) 1.4 0.3 (0.0-3.0) % Gran # 5.49 5.42 (1.4-6.5) Lymph # 2.0 3.0 (1.2-3.4) [place] # 0.8 H 1.5 H (0.1-0.6) Eos # 0.0 0.0 (0.0-0.7) Baso # 0.12 0.03 (0.0-2.0) K/mm3 PT (9.9-11.8) Seconds INR (0.93-1.08) APTT (23.7-30.8) Seconds pO2 (30-55) mm/Hg VBG pH (7.32-7.43) VBG pCO2 (40-60) VBG HCO3 (21-28) mmol/l VBG Total CO2 (22-28) mmol.L VBG O2 Sat (Calc) (40-65) % VBG Base Excess (0.0-2.0) mmol/L VBG Potassium (3.6-5.2) mmol/L Sodium (132-148) mmol/L Chloride (98-107) mmol/L Glucose (75-110) mg/dl Lactate (0.7-2.1) mmol/L FiO2 % Potassium (3.6-5.0) mmol/L Carbon Dioxide (21-33) mmol/L Anion Gap (10-20) BUN (7-21) mg/dL Creatinine (0.8-1.5) mg/dL Est GFR ( Amer) Est GFR (Non-Af Amer) POC Glucose (mg/dL) 122 H (65-110) mg/dL Random Glucose (70-110) mg/dL Lactic Acid (0.7-2.1) mmol/L Calcium (8.4-10.5) mg/dL Phosphorus (2.5-4.5) mg/dL Magnesium (1.7-2.2) mg/dL Total Bilirubin (0.2-1.3) mg/dL AST (17-59) U/L ALT (7-56) U/L Alkaline Phosphatase (38-126) U/L Lactate Dehydrogenase (333-699) U/L Total Creatine Kinase (35-230) U/L CK-MB (CK-2) (0.0-3.6) ng/mL CK-MB (CK-2) % (2.5-3.0) % Troponin I ng/mL Total Protein (5.8-8.3) g/dL Albumin (3.0-4.8) g/dL Globulin gm/dL Albumin/Globulin Ratio (1.1-1.8) Venous Blood Potassium (3.6-5.2) mmol/L Blood Type Confirm 02/27/17 02/27/17 02/27/17 Range/Units 05:40 05:40 00:40 WBC (4.5-11.0) 10^3/ul RBC (3.5-6.1) 10^6/uL Hgb (14.0-18.0) g/dL Hct (42.0-52.0) % MCV (80.0-105.0) fl MCH (25.0-35.0) pg MCHC (31.0-37.0) g/dl RDW (11.5-14.5) % Plt Count (120.0-450.0) 10^3/uL MPV (7.0-11.0) fl Gran % (50.0-68.0) % Lymph % (Auto) (22.0-35.0) % [place] % (Auto) (1.0-6.0) % Eos % (Auto) (1.5-5.0) % Baso % (Auto) (0.0-3.0) % Gran # (1.4-6.5) Lymph # (1.2-3.4) [place] # (0.1-0.6) Eos # (0.0-0.7) Baso # (0.0-2.0) K/mm3 PT 21.6 H (9.9-11.8) Seconds INR 2.00 H (0.93-1.08) APTT 40.0 H 36.1 H (23.7-30.8) Seconds pO2 (30-55) mm/Hg VBG pH (7.32-7.43) VBG pCO2 (40-60) VBG HCO3 (21-28) mmol/l VBG Total CO2 (22-28) mmol.L VBG O2 Sat (Calc) (40-65) % VBG Base Excess (0.0-2.0) mmol/L VBG Potassium (3.6-5.2) mmol/L Sodium 138 (132-148) mmol/L Chloride 98 (98-107) mmol/L Glucose (75-110) mg/dl Lactate (0.7-2.1) mmol/L FiO2 % Potassium 3.9 (3.6-5.0) mmol/L Carbon Dioxide 37 H (21-33) mmol/L Anion Gap 7 L (10-20) BUN 31 H (7-21) mg/dL Creatinine 0.8 (0.8-1.5) mg/dL Est GFR ( Amer) > 60 Est GFR (Non-Af Amer) > 60 POC Glucose (mg/dL) (65-110) mg/dL Random Glucose 127 H (70-110) mg/dL Lactic Acid (0.7-2.1) mmol/L Calcium 7.6 L (8.4-10.5) mg/dL Phosphorus 2.2 L (2.5-4.5) mg/dL Magnesium 2.0 (1.7-2.2) mg/dL Total Bilirubin 5.0 H (0.2-1.3) mg/dL AST 1312 H (17-59) U/L ALT 411 H (7-56) U/L Alkaline Phosphatase 75 (38-126) U/L Lactate Dehydrogenase (333-699) U/L Total Creatine Kinase (35-230) U/L CK-MB (CK-2) (0.0-3.6) ng/mL CK-MB (CK-2) % (2.5-3.0) % Troponin I 0.21 H* D ng/mL Total Protein 5.7 L (5.8-8.3) g/dL Albumin 2.5 L (3.0-4.8) g/dL Globulin 3.2 gm/dL Albumin/Globulin Ratio 0.8 L (1.1-1.8) Venous Blood Potassium (3.6-5.2) mmol/L Blood Type Confirm 02/26/17 02/26/17 02/26/17 Range/Units 19:39 19:39 19:39 WBC 10.9 (4.5-11.0) 10^3/ul RBC 2.28 L (3.5-6.1) 10^6/uL Hgb 8.4 L (14.0-18.0) g/dL Hct 24.6 L (42.0-52.0) % MCV 107.9 H (80.0-105.0) fl MCH 36.8 H (25.0-35.0) pg MCHC 34.1 (31.0-37.0) g/dl RDW 15.0 H (11.5-14.5) % Plt Count 66 L (120.0-450.0) 10^3/uL MPV 10.3 (7.0-11.0) fl Gran % 61.1 (50.0-68.0) % Lymph % (Auto) 24.8 (22.0-35.0) % [place] % (Auto) 14.0 H (1.0-6.0) % Eos % (Auto) 0.0 L (1.5-5.0) % Baso % (Auto) 0.1 (0.0-3.0) % Gran # 6.68 H (1.4-6.5) Lymph # 2.7 (1.2-3.4) [place] # 1.5 H (0.1-0.6) Eos # 0.0 (0.0-0.7) Baso # 0.01 (0.0-2.0) K/mm3 PT 23.2 H (9.9-11.8) Seconds INR 2.15 H (0.93-1.08) APTT (23.7-30.8) Seconds pO2 (30-55) mm/Hg VBG pH (7.32-7.43) VBG pCO2 (40-60) VBG HCO3 (21-28) mmol/l VBG Total CO2 (22-28) mmol.L VBG O2 Sat (Calc) (40-65) % VBG Base Excess (0.0-2.0) mmol/L VBG Potassium (3.6-5.2) mmol/L Sodium (132-148) mmol/L Chloride (98-107) mmol/L Glucose (75-110) mg/dl Lactate (0.7-2.1) mmol/L FiO2 % Potassium (3.6-5.0) mmol/L Carbon Dioxide (21-33) mmol/L Anion Gap (10-20) BUN (7-21) mg/dL Creatinine (0.8-1.5) mg/dL Est GFR ( Amer) Est GFR (Non-Af Amer) POC Glucose (mg/dL) (65-110) mg/dL Random Glucose (70-110) mg/dL Lactic Acid (0.7-2.1) mmol/L Calcium (8.4-10.5) mg/dL Phosphorus (2.5-4.5) mg/dL Magnesium (1.7-2.2) mg/dL Total Bilirubin (0.2-1.3) mg/dL AST (17-59) U/L ALT (7-56) U/L Alkaline Phosphatase (38-126) U/L Lactate Dehydrogenase 2772 H (333-699) U/L Total Creatine Kinase 327 H (35-230) U/L CK-MB (CK-2) 7.2 H (0.0-3.6) ng/mL CK-MB (CK-2) % 2.2 L (2.5-3.0) % Troponin I 0.45 H* D ng/mL Total Protein (5.8-8.3) g/dL Albumin (3.0-4.8) g/dL Globulin gm/dL Albumin/Globulin Ratio (1.1-1.8) Venous Blood Potassium (3.6-5.2) mmol/L Blood Type Confirm 02/26/17 02/26/17 02/26/17 Range/Units 19:39 19:39 15:00 WBC (4.5-11.0) 10^3/ul RBC (3.5-6.1) 10^6/uL Hgb (14.0-18.0) g/dL Hct (42.0-52.0) % MCV (80.0-105.0) fl MCH (25.0-35.0) pg MCHC (31.0-37.0) g/dl RDW (11.5-14.5) % Plt Count (120.0-450.0) 10^3/uL MPV (7.0-11.0) fl Gran % (50.0-68.0) % Lymph % (Auto) (22.0-35.0) % [place] % (Auto) (1.0-6.0) % Eos % (Auto) (1.5-5.0) % Baso % (Auto) (0.0-3.0) % Gran # (1.4-6.5) Lymph # (1.2-3.4) [place] # (0.1-0.6) Eos # (0.0-0.7) Baso # (0.0-2.0) K/mm3 PT (9.9-11.8) Seconds INR (0.93-1.08) APTT (23.7-30.8) Seconds pO2 52 (30-55) mm/Hg VBG pH 7.45 H (7.32-7.43) VBG pCO2 42.0 (40-60) VBG HCO3 29.2 H (21-28) mmol/l VBG Total CO2 30.5 H (22-28) mmol.L VBG O2 Sat (Calc) 90.6 H (40-65) % VBG Base Excess 4.7 H (0.0-2.0) mmol/L VBG Potassium 4.9 (3.6-5.2) mmol/L Sodium 136.0 (132-148) mmol/L Chloride 98.0 (98-107) mmol/L Glucose 110 (75-110) mg/dl Lactate 8.7 H* (0.7-2.1) mmol/L FiO2 21.0 % Potassium (3.6-5.0) mmol/L Carbon Dioxide (21-33) mmol/L Anion Gap (10-20) BUN (7-21) mg/dL Creatinine (0.8-1.5) mg/dL Est GFR ( Amer) Est GFR (Non-Af Amer) POC Glucose (mg/dL) (65-110) mg/dL Random Glucose (70-110) mg/dL Lactic Acid 7.7 H* (0.7-2.1) mmol/L Calcium (8.4-10.5) mg/dL Phosphorus (2.5-4.5) mg/dL Magnesium (1.7-2.2) mg/dL Total Bilirubin (0.2-1.3) mg/dL AST (17-59) U/L ALT (7-56) U/L Alkaline Phosphatase (38-126) U/L Lactate Dehydrogenase (333-699) U/L Total Creatine Kinase (35-230) U/L CK-MB (CK-2) (0.0-3.6) ng/mL CK-MB (CK-2) % (2.5-3.0) % Troponin I ng/mL Total Protein (5.8-8.3) g/dL Albumin (3.0-4.8) g/dL Globulin gm/dL Albumin/Globulin Ratio (1.1-1.8) Venous Blood Potassium 4.9 (3.6-5.2) mmol/L Blood Type Confirm A POSITIVE Laboratory Results - last 24 hr 02/26/17 02/26/17 02/26/17 15:00 19:39 19:39 WBC RBC Hgb Hct MCV MCH MCHC RDW Plt Count MPV Gran % Lymph % (Auto) [place] % (Auto) Eos % (Auto) Baso % (Auto) Gran # Lymph # [place] # Eos # Baso # PT INR APTT pO2 52 VBG pH 7.45 H VBG pCO2 42.0 VBG HCO3 29.2 H VBG Total CO2 30.5 H VBG O2 Sat (Calc) 90.6 H VBG Base Excess 4.7 H VBG Potassium 4.9 Sodium 136.0 Chloride 98.0 Glucose 110 Lactate 8.7 H* FiO2 21.0 Potassium Carbon Dioxide Anion Gap BUN Creatinine Est GFR ( Amer) Est GFR (Non-Af Amer) POC Glucose (mg/dL) Random Glucose Lactic Acid 7.7 H* Calcium Phosphorus Magnesium Total Bilirubin AST ALT Alkaline Phosphatase Lactate Dehydrogenase Total Creatine Kinase CK-MB (CK-2) CK-MB (CK-2) % Troponin I Total Protein Albumin Globulin Albumin/Globulin Ratio Venous Blood Potassium 4.9 Blood Type Confirm A POSITIVE 02/26/17 02/26/17 02/26/17 19:39 19:39 19:39 WBC 10.9 RBC 2.28 L Hgb 8.4 L Hct 24.6 L MCV 107.9 H MCH 36.8 H MCHC 34.1 RDW 15.0 H Plt Count 66 L MPV 10.3 Gran % 61.1 Lymph % (Auto) 24.8 [place] % (Auto) 14.0 H Eos % (Auto) 0.0 L Baso % (Auto) 0.1 Gran # 6.68 H Lymph # 2.7 [place] # 1.5 H Eos # 0.0 Baso # 0.01 PT 23.2 H INR 2.15 H APTT pO2 VBG pH VBG pCO2 VBG HCO3 VBG Total CO2 VBG O2 Sat (Calc) VBG Base Excess VBG Potassium Sodium Chloride Glucose Lactate FiO2 Potassium Carbon Dioxide Anion Gap BUN Creatinine Est GFR ( Amer) Est GFR (Non-Af Amer) POC Glucose (mg/dL) Random Glucose Lactic Acid Calcium Phosphorus Magnesium Total Bilirubin AST ALT Alkaline Phosphatase Lactate Dehydrogenase 2772 H Total Creatine Kinase 327 H CK-MB (CK-2) 7.2 H CK-MB (CK-2) % 2.2 L Troponin I 0.45 H* D Total Protein Albumin Globulin Albumin/Globulin Ratio Venous Blood Potassium Blood Type Confirm 02/27/17 02/27/17 02/27/17 00:40 05:40 05:40 WBC RBC Hgb Hct MCV MCH MCHC RDW Plt Count MPV Gran % Lymph % (Auto) [place] % (Auto) Eos % (Auto) Baso % (Auto) Gran # Lymph # [place] # Eos # Baso # PT 21.6 H INR 2.00 H APTT 36.1 H 40.0 H pO2 VBG pH VBG pCO2 VBG HCO3 VBG Total CO2 VBG O2 Sat (Calc) VBG Base Excess VBG Potassium Sodium 138 Chloride 98 Glucose Lactate FiO2 Potassium 3.9 Carbon Dioxide 37 H Anion Gap 7 L BUN 31 H Creatinine 0.8 Est GFR ( Amer) > 60 Est GFR (Non-Af Amer) > 60 POC Glucose (mg/dL) Random Glucose 127 H Lactic Acid Calcium 7.6 L Phosphorus 2.2 L Magnesium 2.0 Total Bilirubin 5.0 H AST 1312 H ALT 411 H Alkaline Phosphatase 75 Lactate Dehydrogenase Total Creatine Kinase CK-MB (CK-2) CK-MB (CK-2) % Troponin I 0.21 H* D Total Protein 5.7 L Albumin 2.5 L Globulin 3.2 Albumin/Globulin Ratio 0.8 L Venous Blood Potassium Blood Type Confirm 02/27/17 02/27/17 02/27/17 05:50 06:39 11:35 WBC 9.9 8.4 RBC 2.01 L 2.21 L Hgb 7.4 L 8.2 L Hct 21.9 L 23.7 L MCV 109.0 H 107.2 H MCH 36.8 H 37.1 H MCHC 33.8 34.6 RDW 15.4 H 15.2 H Plt Count 47 L* 47 L* MPV 10.2 10.3 Gran % 54.8 65.3 Lymph % (Auto) 30.0 24.0 [place] % (Auto) 14.7 H 9.1 H Eos % (Auto) 0.2 L 0.2 L Baso % (Auto) 0.3 1.4 Gran # 5.42 5.49 Lymph # 3.0 2.0 [place] # 1.5 H 0.8 H Eos # 0.0 0.0 Baso # 0.03 0.12 PT INR APTT pO2 VBG pH VBG pCO2 VBG HCO3 VBG Total CO2 VBG O2 Sat (Calc) VBG Base Excess VBG Potassium Sodium Chloride Glucose Lactate FiO2 Potassium Carbon Dioxide Anion Gap BUN Creatinine Est GFR ( Amer) Est GFR (Non-Af Amer) POC Glucose (mg/dL) 122 H Random Glucose Lactic Acid Calcium Phosphorus Magnesium Total Bilirubin AST ALT Alkaline Phosphatase Lactate Dehydrogenase Total Creatine Kinase CK-MB (CK-2) CK-MB (CK-2) % Troponin I Total Protein Albumin Globulin Albumin/Globulin Ratio Venous Blood Potassium Blood Type Confirm Critical Care Progress Note - Nutrition Nutrition: Nutrition Category Date Time Status NPO Diet [DIET] Diets 02/26/17 Lunch Ordered Attending/Attestation - Attestation I have personally seen and examined this patient.: Yes I have fully participated in the care of the patient.: Yes I have reviewed all pertinent clinical information: Yes Notes (Text): 02/27/17 12:34 attending note; Patient seen and examined with resident and ICU attending in ER. Patient is 56 year old male with PMH of HTN, on ASA, ETOH abuse(>6 beers per day x 30y), presents with hematemesis and AMS. GI bleed; monitor vitals closely. Started on IV fluids. Has two large-bore IV line. Continue IV Protonix and IV octerotide. altered mental status; mostly secondary to hepatic encephalopathy/alcohol withdrawal. Monitor closely in ICU. Coagulopathy; 2 units of FFP ordered. Elevated LFTs; acute alcoholic hepatitis. GI evaluation requested. Thrombocytopenia; secondary to chronic alcohol abuse. lactic acidosis; secondary to hypoperfusion/liver disease. Patient is afebrile and nontoxic. Started on vancomycin and Zosyn. patient will be closely monitored in ICU. The diagnosis and treatment plan discussed with patient and patient's in detail. Prognosis is guarded.
[2017-02-27 11:52] LABS: BASO # 0.12 K/mm3 (0.0-2.0); BASO % 1.4 % (0.0-3.0); EOS % 0.2 % (1.5-5.0); GRAN # 5.49 (1.4-6.5); GRAN % 65.3 % (50.0-68.0); MEAN CELL VOLUME 107.2 fl (80.0-105.0); MEAN CORPUSCULAR HEMOGLOBIN 37.1 pg (25.0-35.0); MEAN CORPUSCULAR HGB CONC 34.6 g/dl (31.0-37.0); MEAN PLATELET VOLUME 10.3 fl (7.0-11.0); MONO # 0.8 (0.1-0.6); MONO % 9.1 % (1.0-6.0); RED CELL DISTRIBUTION WIDTH 15.2 % (11.5-14.5); WHITE BLOOD COUNT 8.4 10^3/ul (4.5-11.0)
[2017-02-27 11:54] LABS: HEMATOCRIT 23.7 % (42.0-52.0)
[2017-02-27] MEDS ORDERED: Piperacillin/Tazobact 3.375 gm 100 ML IVPB SCH (12:00)
[2017-02-27] MEDS ORDERED: Lactulose 10 gm/15 ml (Rectal Use) PR ONE (12:33)
[2017-02-27] MEDS ORDERED: Propofol 10 mg/ml Inj (20 ML) ONE (13:33)
[2017-02-27] MEDS ORDERED: Etomidate 20 mg/10ml Inj IV ONE (13:52)
--- NOTE | 2017-02-27 15:10 | CP.PCM.CON ---
<Troy Peraza - Last Filed: 02/27/17 17:16> History of Present Illness - History of Present Illness History of Present Illness: Surgery Progress Note for Dr. Stout We are consulted for possible gastric ischemia HPI: Patient is a 56 y/o alcoholic male who presented to the ER last night at approx. 1400 for multiple epsidoes of coffee ground emesis. He reports having 6 episodes the day before coming to the ER and 3-4 episodes yesterday. Patient was confused in the ER and the provided that majority of the history. Patient has remained obtunded throuought his hospital stay. He drinks 3-6 beers every other day. His daughter states he has been a heavy drinker as long as she can remember. Denies any prior episodes. GI was consulted to do an EGD today that showed two nonbleeding ulcers in the body and antrum of the stomach, severe diffuse portal hypertensive gastropathy in the fundus and body as well as localized purple discoloration in the gastric fundus and in the body concerning for ischemia. The patient has recieved 2 units of FFP. IR was consulted and were getting ready to take the patient for intervention as we were conducting this interview. PMH: HTN, Alcohol abuse PSH: denies FH: denies SH: Drinks 3-6 beers every other day for 30 years, smokes 1ppd for an unknown amount of years, admits to occasional marijuana abuse Meds: See MAR Allergies: None Review of Systems - Constitutional Constitutional: As Per HPI - EENT Eyes: As Per HPI Ears: As Per HPI Nose/Mouth/Throat: As Per HPI - Cardiovascular Cardiovascular: As Per HPI - Respiratory Respiratory: As Per HPI - Gastrointestinal Gastrointestinal: As Per HPI - Genitourinary Genitourinary: As Per HPI - Reproductive: Male Reproductive:Male: As Per HPI - Musculoskeletal Musculoskeletal: As Per HPI - Integumentary Integumentary: As Per HPI - Neurological Neurological: As Per HPI - Psychiatric Psychiatric: As Per HPI - Endocrine Endocrine: As Per HPI - Hematologic/Lymphatic Hematologic: As Per HPI Past Patient History - Infectious Disease Hx of Infectious Diseases: None - Past Social History Smoking Status: Heavy Smoker > 10 Cigarettes Daily - CARDIAC Hx Cardiac Disorders: Yes Hx Hypertension: Yes - PULMONARY Hx Emphysema: Yes - NEUROLOGICAL Hx Neurological Disorder: Yes (tremors) - HEENT Hx HEENT Problems: No - RENAL Hx Chronic Kidney Disease: No - ENDOCRINE/METABOLIC Hx Endocrine Disorders: No - HEMATOLOGICAL/ONCOLOGICAL Hx Blood Disorders: No - INTEGUMENTARY Hx Dermatological Problems: No - MUSCULOSKELETAL/RHEUMATOLOGICAL Hx Falls: No - GASTROINTESTINAL Hx Gastrointestinal Disorders: No Hx Bowel Surgery: No - GENITOURINARY/GYNECOLOGICAL Hx Genitourinary Disorders: No - PSYCHIATRIC Hx Substance Use: Yes (occasional marijuana) - SURGICAL HISTORY Hx Surgeries: Yes - ANESTHESIA Hx Anesthesia Reactions: No Meds Allergies/Adverse Reactions: Allergies Allergy/AdvReac Type Severity Reaction Status Date / Time No Known Allergies Allergy Verified 02/26/17 14:21 - Medications Medications: Current Medications Octreotide Acetate 1,250 mcg/ (Sodium Chloride) 252.5 mls @ 10.1 mls/hr IV .Q24H ED; 50 MCG/HR PRN Reason: Protocol Last Admin: 02/26/17 15:41 Dose: 50 mcg/hr, 10.1 mls/hr Pantoprazole Sodium (Protonix 40mg Ivpb) 40 mg in 100 mls @ 20 mls/hr IVPB .Q5H ED Last Admin: 02/27/17 08:30 Dose: 20 mls/hr Vancomycin HCl (Vancomycin 1gm) 1 gm in 250 mls @ 167 mls/hr IVPB Q12H ED PRN Reason: Protocol Last Admin: 02/27/17 03:17 Dose: 167 mls/hr Piperacillin Sod/Tazobactam Sod (Zosyn 3.375 In Ns 100ml) 100 mls @ 200 mls/hr IVPB Q6 ED PRN Reason: Protocol Stop: 03/08/17 18:01 Lorazepam (Ativan) 2 mg IVP Q6H PRN; Protocol PRN Reason: Withdrawal Physical Exam - Constitutional Appears: Confused Additional comments: clearly obtunded, unable to respond to our questions - Head Exam Head Exam: ATRAUMATIC, NORMAL INSPECTION, NORMOCEPHALIC - Eye Exam Eye Exam: PERRL - ENT Exam ENT Exam: Mucous Membranes Moist - Respiratory Exam Respiratory Exam: Clear to Auscultation Bilateral, NORMAL BREATHING PATTERN - Cardiovascular Exam Cardiovascular Exam: Tachycardia, REGULAR RHYTHM - GI/Abdominal Exam GI & Abdominal Exam: Normal Bowel Sounds, Soft. absent: Distended, Tenderness - Extremities Exam Extremities exam: Positive for: joint swelling, tenderness - Neurological Exam Neurological exam: Altered - Skin Skin Exam: Dry, Intact, Normal Color, Warm Results - Vital Signs Recent Vital Signs: Last Vital Signs Temp 97.9 F 02/27/17 13:33 Pulse 111 H 02/27/17 13:33 Resp 26 H 02/27/17 13:33 BP 166/81 H 02/27/17 13:33 Pulse Ox 96 02/27/17 13:33 - Labs Result Diagrams: 02/27/17 11:35 02/27/17 05:40 Labs: Laboratory Results - last 24 hr 02/26/17 02/26/17 02/26/17 15:00 19:39 19:39 WBC RBC Hgb Hct MCV MCH MCHC RDW Plt Count MPV Gran % Lymph % (Auto) [place] % (Auto) Eos % (Auto) Baso % (Auto) Gran # Lymph # [place] # Eos # Baso # PT INR APTT pO2 52 VBG pH 7.45 H VBG pCO2 42.0 VBG HCO3 29.2 H VBG Total CO2 30.5 H VBG O2 Sat (Calc) 90.6 H VBG Base Excess 4.7 H VBG Potassium 4.9 Sodium 136.0 Chloride 98.0 Glucose 110 Lactate 8.7 H* FiO2 21.0 Potassium Carbon Dioxide Anion Gap BUN Creatinine Est GFR ( Amer) Est GFR (Non-Af Amer) POC Glucose (mg/dL) Random Glucose Lactic Acid 7.7 H* Calcium Phosphorus Magnesium Total Bilirubin AST ALT Alkaline Phosphatase Lactate Dehydrogenase Total Creatine Kinase CK-MB (CK-2) CK-MB (CK-2) % Troponin I Total Protein Albumin Globulin Albumin/Globulin Ratio Venous Blood Potassium 4.9 Blood Type Confirm A POSITIVE 02/26/17 02/26/17 02/26/17 19:39 19:39 19:39 WBC 10.9 RBC 2.28 L Hgb 8.4 L Hct 24.6 L MCV 107.9 H MCH 36.8 H MCHC 34.1 RDW 15.0 H Plt Count 66 L MPV 10.3 Gran % 61.1 Lymph % (Auto) 24.8 [place] % (Auto) 14.0 H Eos % (Auto) 0.0 L Baso % (Auto) 0.1 Gran # 6.68 H Lymph # 2.7 [place] # 1.5 H Eos # 0.0 Baso # 0.01 PT 23.2 H INR 2.15 H APTT pO2 VBG pH VBG pCO2 VBG HCO3 VBG Total CO2 VBG O2 Sat (Calc) VBG Base Excess VBG Potassium Sodium Chloride Glucose Lactate FiO2 Potassium Carbon Dioxide Anion Gap BUN Creatinine Est GFR ( Amer) Est GFR (Non-Af Amer) POC Glucose (mg/dL) Random Glucose Lactic Acid Calcium Phosphorus Magnesium Total Bilirubin AST ALT Alkaline Phosphatase Lactate Dehydrogenase 2772 H Total Creatine Kinase 327 H CK-MB (CK-2) 7.2 H CK-MB (CK-2) % 2.2 L Troponin I 0.45 H* D Total Protein Albumin Globulin Albumin/Globulin Ratio Venous Blood Potassium Blood Type Confirm 02/27/17 02/27/17 02/27/17 00:40 05:40 05:40 WBC RBC Hgb Hct MCV MCH MCHC RDW Plt Count MPV Gran % Lymph % (Auto) [place] % (Auto) Eos % (Auto) Baso % (Auto) Gran # Lymph # [place] # Eos # Baso # PT 21.6 H INR 2.00 H APTT 36.1 H 40.0 H pO2 VBG pH VBG pCO2 VBG HCO3 VBG Total CO2 VBG O2 Sat (Calc) VBG Base Excess VBG Potassium Sodium 138 Chloride 98 Glucose Lactate FiO2 Potassium 3.9 Carbon Dioxide 37 H Anion Gap 7 L BUN 31 H Creatinine 0.8 Est GFR ( Amer) > 60 Est GFR (Non-Af Amer) > 60 POC Glucose (mg/dL) Random Glucose 127 H Lactic Acid Calcium 7.6 L Phosphorus 2.2 L Magnesium 2.0 Total Bilirubin 5.0 H AST 1312 H ALT 411 H Alkaline Phosphatase 75 Lactate Dehydrogenase Total Creatine Kinase CK-MB (CK-2) CK-MB (CK-2) % Troponin I 0.21 H* D Total Protein 5.7 L Albumin 2.5 L Globulin 3.2 Albumin/Globulin Ratio 0.8 L Venous Blood Potassium Blood Type Confirm 02/27/17 02/27/17 02/27/17 05:50 06:39 11:35 WBC 9.9 8.4 RBC 2.01 L 2.21 L Hgb 7.4 L 8.2 L Hct 21.9 L 23.7 L MCV 109.0 H 107.2 H MCH 36.8 H 37.1 H MCHC 33.8 34.6 RDW 15.4 H 15.2 H Plt Count 47 L* 47 L* MPV 10.2 10.3 Gran % 54.8 65.3 Lymph % (Auto) 30.0 24.0 [place] % (Auto) 14.7 H 9.1 H Eos % (Auto) 0.2 L 0.2 L Baso % (Auto) 0.3 1.4 Gran # 5.42 5.49 Lymph # 3.0 2.0 [place] # 1.5 H 0.8 H Eos # 0.0 0.0 Baso # 0.03 0.12 PT INR APTT pO2 VBG pH VBG pCO2 VBG HCO3 VBG Total CO2 VBG O2 Sat (Calc) VBG Base Excess VBG Potassium Sodium Chloride Glucose Lactate FiO2 Potassium Carbon Dioxide Anion Gap BUN Creatinine Est GFR ( Amer) Est GFR (Non-Af Amer) POC Glucose (mg/dL) 122 H Random Glucose Lactic Acid Calcium Phosphorus Magnesium Total Bilirubin AST ALT Alkaline Phosphatase Lactate Dehydrogenase Total Creatine Kinase CK-MB (CK-2) CK-MB (CK-2) % Troponin I Total Protein Albumin Globulin Albumin/Globulin Ratio Venous Blood Potassium Blood Type Confirm Assessment & Plan - Assessment and Plan (Free Text) Assessment: 56M with possible gastric ischemia * F/U on IR ([facility]) intervention * Further Reccs per Dr. Girish Peraza PGY1 - Date & Time Date: 02/27/17 Time: 15:15 <Coleen Stout Y - Last Filed: 02/28/17 12:43> Meds - Medications Medications: Current Medications Fentanyl (Fentanyl) 100 mcg IVP Q2 PRN PRN Reason: Pain, severe (8-10) Last Admin: 02/28/17 08:45 Dose: 100 mcg Octreotide Acetate 1,250 mcg/ (Sodium Chloride) 252.5 mls @ 10.1 mls/hr IV .Q24H ED; 50 MCG/HR PRN Reason: Protocol Last Admin: 02/27/17 19:29 Dose: 50 mcg/hr, 10.1 mls/hr Pantoprazole Sodium (Protonix 40mg Ivpb) 40 mg in 100 mls @ 20 mls/hr IVPB .Q5H ED Last Admin: 02/28/17 07:44 Dose: 20 mls/hr Piperacillin Sod/Tazobactam Sod (Zosyn 3.375 In Ns 100ml) 100 mls @ 200 mls/hr IVPB Q6 ED PRN Reason: Protocol Stop: 03/08/17 18:01 Last Admin: 02/28/17 11:55 Dose: 200 mls/hr Dextrose/Sodium Chloride (Dextrose 5%/0.9% Ns 1000 Ml) 1,000 mls @ 125 mls/hr IV .Q8H ED Last Admin: 02/27/17 19:12 Dose: 125 mls/hr Sodium Chloride (Sodium Chloride 0.9%) 1,000 mls @ 100 mls/hr IV .Q10H DE Dopamine HCl 800 mg/ Dextrose 270 mls @ 3.74 mls/hr IV .Q24H PRN; Protocol; 2 MCG/KG/MIN PRN Reason: TITRATE PER MD ORDER Last Admin: 02/28/17 06:13 Dose: 2 mcg/kg/min, 3.74 mls/hr NOREPINEPHRINE BIT/0.9 % NACL (Levophed 4 Mg/ 250 Ml Ns Premixed) 4 mg in 250 mls @ 15 mls/hr IV .[id number] PRN; Protocol; 4 MCG/MIN PRN Reason: TITRATE PER MD ORDER Last Titration: 02/28/17 12:00 Dose: 30 mcg/min, 112.5 mls/hr Propofol (Diprivan) 1,000 mg in 100 mls @ 2.776 mls/hr IV .Q24H PRN; Protocol; 5 MCG/KG/MIN PRN Reason: TITRATE PER MD ORDER Last Admin: 02/28/17 11:12 Dose: 50 mcg/kg/min, 27.76 mls/hr Vasopressin 20 units/ Dextrose 101 mls @ 9.09 mls/hr IV .Q11H7M ED; 0.03 U/MIN PRN Reason: Protocol Last Admin: 02/28/17 07:43 Dose: 9.09 mls/hr Cisatracurium Besylate 100 mg/ (Sodium Chloride) 260 mls @ 43.3 mls/hr IV .Q6H1M PRN; Protocol; 3 MCG/KG/MIN PRN Reason: TITRATE PER MD ORDER Midazolam 100 mg/100ml in NS (Midazolam 100 Mg/100ml In Ns) 100 mg in 100 mls @ 1 mls/hr IV .Q24H PRN; Protocol; 1 MG/HR PRN Reason: Sedation Last Titration: 02/28/17 09:00 Dose: 10 mg/hr, 10 mls/hr Lactulose (Generlac) 200 gm VA Q6H ED Last Admin: 02/27/17 23:31 Dose: 200 gm Lorazepam (Ativan) 2 mg IVP Q6H PRN; Protocol PRN Reason: Withdrawal Results - Vital Signs Recent Vital Signs: Last Vital Signs Temp 98.4 F 02/28/17 11:34 Pulse 117 H 02/28/17 11:34 Resp 35 H 02/28/17 11:34 BP 123/70 02/28/17 11:34 Pulse Ox 99 02/28/17 11:34 - Labs Result Diagrams: 02/28/17 11:15 02/28/17 03:50 Labs: Laboratory Results - last 24 hr 02/27/17 02/27/17 02/27/17 06:30 06:30 18:15 WBC 6.6 D RBC 1.92 L Hgb 7.2 L Hct 20.9 L* MCV 108.9 H MCH 37.5 H MCHC 34.4 RDW 15.3 H Plt Count 58 L MPV 9.6 Gran % 69.7 H Lymph % (Auto) 21.1 L [place] % (Auto) 8.8 H Eos % (Auto) 0.2 L Baso % (Auto) 0.2 Gran # 4.60 Lymph # 1.4 [place] # 0.6 Eos # 0.0 Baso # 0.01 PT INR APTT Fibrinogen pCO2 pO2 HCO3 ABG pH ABG Total CO2 ABG O2 Saturation ABG Base Excess ABG Potassium VBG pH VBG pCO2 VBG HCO3 VBG Total CO2 VBG O2 Sat (Calc) VBG Base Excess VBG Potassium Glucose Lactate Mechanical Rate FiO2 Tidal Volume PEEP Sodium Potassium Chloride Carbon Dioxide Anion Gap BUN Creatinine Est GFR ( Amer) Est GFR (Non-Af Amer) Random Glucose Lactic Acid Calcium Phosphorus Magnesium Total Bilirubin AST ALT Alkaline Phosphatase Ammonia Troponin I Total Protein Albumin Globulin Albumin/Globulin Ratio Amylase Arterial Blood Potassium Venous Blood Potassium Hepatitis A IgM Ab Negative Hep Bs Antigen Negative Negative Hep B Core IgM Ab Negative Negative Hepatitis C Antibody Negative 02/27/17 02/27/17 02/27/17 19:48 19:53 23:32 WBC 7.7 RBC 1.99 L Hgb 7.5 L Hct 21.6 L MCV 108.5 H MCH 37.7 H MCHC 34.7 RDW 15.2 H Plt Count 59 L MPV 9.7 Gran % 72.5 H Lymph % (Auto) 19.4 L [place] % (Auto) 7.7 H Eos % (Auto) 0.3 L Baso % (Auto) 0.1 Gran # 5.57 Lymph # 1.5 [place] # 0.6 Eos # 0.0 Baso # 0.01 PT INR APTT Fibrinogen pCO2 pO2 HCO3 ABG pH ABG Total CO2 ABG O2 Saturation ABG Base Excess ABG Potassium VBG pH VBG pCO2 VBG HCO3 VBG Total CO2 VBG O2 Sat (Calc) VBG Base Excess VBG Potassium Glucose Lactate Mechanical Rate FiO2 Tidal Volume PEEP Sodium 138 Potassium 3.7 Chloride 100 Carbon Dioxide 35 H Anion Gap 7 L BUN 26 H Creatinine 0.5 L Est GFR ( Amer) > 60 Est GFR (Non-Af Amer) > 60 Random Glucose 133 H Lactic Acid 2.4 H Calcium 7.7 L Phosphorus Magnesium Total Bilirubin 4.2 H AST 1127 H ALT 392 H Alkaline Phosphatase 85 Ammonia Troponin I Total Protein 6.0 Albumin 2.7 L Globulin 3.3 Albumin/Globulin Ratio 0.8 L Amylase 52 Arterial Blood Potassium Venous Blood Potassium Hepatitis A IgM Ab Hep Bs Antigen Hep B Core IgM Ab Hepatitis C Antibody 02/28/17 02/28/17 02/28/17 00:15 03:50 03:50 WBC 6.9 RBC 1.81 L Hgb 6.3 L* Hct 18.9 L* MCV 104.4 D MCH 34.8 MCHC 33.3 RDW 19.0 H Plt Count 53 L MPV 9.9 Gran % 61.4 Lymph % (Auto) 28.2 [place] % (Auto) 10.0 H Eos % (Auto) 0.3 L Baso % (Auto) 0.1 Gran # 4.22 Lymph # 1.9 [place] # 0.7 H Eos # 0.0 Baso # 0.01 PT 19.4 H INR 1.80 H APTT Fibrinogen pCO2 pO2 HCO3 ABG pH ABG Total CO2 ABG O2 Saturation ABG Base Excess ABG Potassium VBG pH VBG pCO2 VBG HCO3 VBG Total CO2 VBG O2 Sat (Calc) VBG Base Excess VBG Potassium Glucose Lactate Mechanical Rate FiO2 Tidal Volume PEEP Sodium 141 Potassium 3.6 Chloride 105 Carbon Dioxide 24 Anion Gap 16 BUN 25 H Creatinine 0.9 Est GFR ( Amer) > 60 Est GFR (Non-Af Amer) > 60 Random Glucose 128 H Lactic Acid Calcium 7.1 L Phosphorus 1.8 L Magnesium 1.9 Total Bilirubin 3.7 H AST 675 H D ALT 286 H Alkaline Phosphatase 59 Ammonia Troponin I Total Protein 4.5 L Albumin 2.0 L Globulin 2.5 Albumin/Globulin Ratio 0.8 L Amylase Arterial Blood Potassium Venous Blood Potassium Hepatitis A IgM Ab Hep Bs Antigen Hep B Core IgM Ab Hepatitis C Antibody 02/28/17 02/28/17 02/28/17 03:50 03:50 03:50 WBC RBC Hgb Hct MCV MCH MCHC RDW Plt Count MPV Gran % Lymph % (Auto) [place] % (Auto) Eos % (Auto) Baso % (Auto) Gran # Lymph # [place] # Eos # Baso # PT 23.4 H INR 2.17 H APTT Fibrinogen 81.3 L* pCO2 pO2 HCO3 ABG pH ABG Total CO2 ABG O2 Saturation ABG Base Excess ABG Potassium VBG pH VBG pCO2 VBG HCO3 VBG Total CO2 VBG O2 Sat (Calc) VBG Base Excess VBG Potassium Glucose Lactate Mechanical Rate FiO2 Tidal Volume PEEP Sodium Potassium Chloride Carbon Dioxide Anion Gap BUN Creatinine Est GFR ( Amer) Est GFR (Non-Af Amer) Random Glucose Lactic Acid Calcium Phosphorus Magnesium Total Bilirubin AST ALT Alkaline Phosphatase Ammonia 43 H Troponin I Total Protein Albumin Globulin Albumin/Globulin Ratio Amylase Arterial Blood Potassium Venous Blood Potassium Hepatitis A IgM Ab Hep Bs Antigen Hep B Core IgM Ab Hepatitis C Antibody 02/28/17 02/28/17 02/28/17 04:38 06:00 06:41 WBC 6.8 RBC 2.72 L Hgb 8.6 L D Hct 25.9 L MCV 95.2 D MCH 31.6 MCHC 33.2 RDW 16.8 H Plt Count 27 L* MPV 10.5 Gran % 55.5 Lymph % (Auto) 29.0 Leslie % (Auto) 14.9 H Eos % (Auto) 0.3 L Baso % (Auto) 0.3 Gran # 3.79 Lymph # 2.0 Leslie # 1.0 H Eos # 0.0 Baso # 0.02 PT INR APTT Fibrinogen pCO2 44 pO2 384.0 H HCO3 19.7 L ABG pH 7.26 L ABG Total CO2 21.1 L ABG O2 Saturation 100.9 H ABG Base Excess -6.8 L ABG Potassium 3.8 VBG pH VBG pCO2 VBG HCO3 VBG Total CO2 VBG O2 Sat (Calc) VBG Base Excess VBG Potassium Glucose 111 H Lactate 9.4 H* Mechanical Rate FiO2 100.0 Tidal Volume PEEP Sodium 139.0 Potassium Chloride 113.0 H Carbon Dioxide Anion Gap BUN Creatinine Est GFR ( Amer) Est GFR (Non-Af Amer) Random Glucose Lactic Acid Calcium Phosphorus Magnesium Total Bilirubin AST ALT Alkaline Phosphatase Ammonia Troponin I 0.24 H* Total Protein Albumin Globulin Albumin/Globulin Ratio Amylase Arterial Blood Potassium 3.8 Venous Blood Potassium Hepatitis A IgM Ab Hep Bs Antigen Hep B Core IgM Ab Hepatitis C Antibody 02/28/17 02/28/17 02/28/17 06:41 09:40 10:33 WBC RBC Hgb Hct MCV MCH MCHC RDW Plt Count MPV Gran % Lymph % (Auto) Leslie % (Auto) Eos % (Auto) Baso % (Auto) Gran # Lymph # Leslie # Eos # Baso # PT 22.3 H INR 2.06 H APTT 65.8 H Fibrinogen 72.8 L* pCO2 46 H pO2 50 55.0 L HCO3 15.3 L ABG pH 7.13 L* ABG Total CO2 16.7 L ABG O2 Saturation 91.1 L ABG Base Excess -13.6 L ABG Potassium 4.1 VBG pH 7.12 L* VBG pCO2 55.0 VBG HCO3 17.9 L VBG Total CO2 19.6 L VBG O2 Sat (Calc) 87.9 H VBG Base Excess -11.7 L VBG Potassium 4.3 Glucose 70 L 67 L Lactate 10.3 H* 9.8 H* Mechanical Rate 30 FiO2 21.0 60.0 Tidal Volume 420 PEEP 5 Sodium 140.0 141.0 Potassium Chloride 109.0 H 112.0 H Carbon Dioxide Anion Gap BUN Creatinine Est GFR ( Amer) Est GFR (Non-Af Amer) Random Glucose Lactic Acid Calcium Phosphorus Magnesium Total Bilirubin AST ALT Alkaline Phosphatase Ammonia Troponin I Total Protein Albumin Globulin Albumin/Globulin Ratio Amylase Arterial Blood Potassium 4.1 Venous Blood Potassium 4.3 Hepatitis A IgM Ab Hep Bs Antigen Hep B Core IgM Ab Hepatitis C Antibody 02/28/17 02/28/17 11:15 11:15 WBC 10.2 D RBC 3.04 L Hgb 9.8 L Hct 28.4 L MCV 93.4 MCH 32.2 MCHC 34.5 RDW 16.6 H Plt Count 82 L MPV 8.9 Gran % 57.5 Lymph % (Auto) 28.0 Leslie % (Auto) 13.7 H Eos % (Auto) 0.2 L Baso % (Auto) 0.6 Gran # 5.87 Lymph # 2.9 Leslie # 1.4 H Eos # 0.0 Baso # 0.06 PT 19.5 H INR 1.81 H APTT 59.8 H Fibrinogen 92.7 L* pCO2 pO2 HCO3 ABG pH ABG Total CO2 ABG O2 Saturation ABG Base Excess ABG Potassium VBG pH VBG pCO2 VBG HCO3 VBG Total CO2 VBG O2 Sat (Calc) VBG Base Excess VBG Potassium Glucose Lactate Mechanical Rate FiO2 Tidal Volume PEEP Sodium Potassium Chloride Carbon Dioxide Anion Gap BUN Creatinine Est GFR ( Amer) Est GFR (Non-Af Amer) Random Glucose Lactic Acid Calcium Phosphorus Magnesium Total Bilirubin AST ALT Alkaline Phosphatase Ammonia Troponin I Total Protein Albumin Globulin Albumin/Globulin Ratio Amylase Arterial Blood Potassium Venous Blood Potassium Hepatitis A IgM Ab Hep Bs Antigen Hep B Core IgM Ab Hepatitis C Antibody
--- NOTE | 2017-02-27 16:13 | CON ---
DATE: 02/27/2017 CHIEF COMPLAINT: Weakness. HISTORY OF PRESENT ILLNESS: This is a [id number] with past medical history significant for alcoholism, hypertension. The patient with a history of alcoholic liver disease, who is admitted from the emergency room, he has been accompanied by his , complains of nausea, vomiting blood and has questionable bright red blood per rectum. The patient at this time this morning when I saw the patient, is confused, unable to give any history. There has been no abdominal pain reported. No dysuria or frequency. There is mild shortness of breath. PAST MEDICAL HISTORY: Significant for hypertension, alcoholism, and alcoholic liver disease. PAST SURGICAL HISTORY: Significant for right knee surgery. SOCIAL HISTORY: Drinks beer every night. He also smokes marijuana. MEDICATIONS AT HOME: Include metoprolol, inhaler, aspirin. PHYSICAL EXAMINATION: GENERAL: The patient is in bed, appears much, much older than his staged age. He is confused. VITAL SIGNS: Temperature of 98, heart rate of 107, respiratory rate of 27, blood pressure is 156. HEENT: Unremarkable. NECK: Supple. LUNGS: Decreased breath sounds. HEART: Normal S1 and S2. ABDOMEN: Mild tenderness. No rebound or guarding. LABORATORY DATA: Reveals the patient's white count is 9, hemoglobin of 9, platelets of 79. Coagulation is noted and chemistries reveal a BUN of 31, creatinine of 0.8. LFTs are elevated. Troponin is elevated at 0.34, alcohol level is less than 10. The patient also had a CAT scan of the abdomen and pelvis consistent with enteritis and splenic varices and cirrhosis, small bowel thickening. The patient had a CAT scan of the chest, has emphysematous changes in the lungs. Pneumogram, appearance and also an abdominal ultrasound, which is unremarkable. Hepatic cellular disease, fatty infiltration of the liver and surgery operative note, esophagogastroduodenoscopy is noted, done by Dr. Riley Whaley. ASSESSMENT AND PLAN: A 56-year-old alcoholic male with alcoholic liver disease, admitted with now hypertension and vomiting blood. 1. Systemic inflammatory response syndrome with acute mental status change secondary to hepatic encephalopathy, alcoholic with withdrawals and underlying liver disease. I am going to treat the patient with antibiotics and current recommendation is ceftriaxone 1 gram q. 24 hours. The patient's last hospitalization in [place] was 01/26/2016. Hepatitis profile has been ordered. Blood cultures have been ordered. Nasal methicillin-resistant Staphylococcus aureus has been ordered. The patient was given vancomycin and Zosyn. We will check on the culture results and make further recommendations. We will also order an human-immunodeficiency virus test because of the age of 56 and we will make further recommendations. Overall, prognosis is poor for this patient. Chris Cano MD
--- NOTE | 2017-02-27 16:28 | CON ---
DATE: 02/27/2017 REQUESTING PHYSICIAN: Dr. Watters. REASON FOR CONSULTATION: Elevated cardiac enzymes. HISTORY OF PRESENT ILLNESS: This is a 56-year-old male with a history of alcohol and tobacco abuse, who was brought to the emergency room with complaints of hematemesis. He is seen in the CCU. He is seen in the presence of his . He received sedation overnight for extreme restlessness, and is extremely somnolence at the present time. Rest of the history was obtained via the chart and his . He drinks fairly heavily. He is also a smoker of a pack per day for many years. Upon admission, his troponin was noted to be mildly elevated with a negative CK-MB percentage. According to his , he has no prior history of heart disease. PAST MEDICAL HISTORY: Notable for the problems mentioned above. He does have a history of hypertension. CURRENT MEDICATIONS: Include Ativan, lactulose, Protonix, vancomycin, Zosyn, and octreotide. SOCIAL HISTORY: As mentioned, he drinks six pack a beer daily for at least 30 years. He is a smoker of one pack per day. FAMILY HISTORY: Uncertain. ALLERGIES: NONE. REVIEW OF SYSTEMS: A 10-point review of systems is not obtained. PHYSICAL EXAMINATION: GENERAL: He is a ill-appearing middle aged man. VITAL SIGNS: His blood pressure is 156/80 with a pulse of 110 in sinus, and respirations are 16. He is afebrile at present. NECK: No JVD. CHEST: Bilateral scattered rhonchi. HEART: PMI displaced laterally. A systolic murmur is present at the lower left sternal border. ABDOMEN: Soft. Bowel sounds are present. EXTREMITIES: No edema. SKIN: Warm and dry. PSYCHIATRIC: Obtunded at present. NEUROLOGIC: Unable to assess. DIAGNOSTIC DATA: White count is 8.4, hemoglobin and hematocrit 8.2 and 23.7 with an MCV 107, and platelet count is 47,000. PT and PTT 21.6 and 40.0 with an INR 2.0. Arterial blood gas showed a pH of 7.45, PCO2 of 30, and PO2 of 42, which was a venous gas, lactic acid was 8.7, BUN and creatinine 31 and 0.8 with a potassium 3.9. Initial troponin was 0.34, follow up 0.45, and repeat is 0.21. CK was 250 with negative MB fraction. Alcohol level was not detected. Electrocardiogram reveals sinus tachycardia with nonspecific ST-T abnormalities. Chest x-ray reveals normal cardiac silhouette with clear lung bethea. IMPRESSION: 1. Elevated troponin likely due to stress and illness without any significant acute cardiac event at present, given negative MB fraction. 2. Apparent gastrointestinal bleeding with severe anemia. 3. Probable alcoholic liver disease. 4. History of tobacco abuse. 5. Thrombocytopenia. 6. Rest of the problems as noted above. RECOMMENDATIONS: From a cardiac standpoint, baseline echocardiogram can be obtained. Supportive care and anemia evaluation is advised. Transfusion as necessary would be recommended. Obviously, smoking and alcohol abstinence would be encouraged once appropriate. Thank you for this consultation. We will be happy to follow as needed. Kyree Vigil MD
[2017-02-27] MEDS ORDERED: Lactulose 10 gm/15 ml (Rectal Use) PR SCH ×2 (17:00→17:15)
--- NOTE | 2017-02-27 18:19 | CP.CCUPN ---
CCU Subjective - Physician Review Events Since Last Encounter (Free Text): 02/27/17 18:14 Pt examined and seen to be obtunded. Protecting airway but encephalopathic. Noted to have UGI bleed, alcohol abuse and signs of liver failure. CCU Objective - Vital Signs / Intake & Output Vital Signs (Last 4 hours): Vital Signs Pulse Resp Pulse Ox 02/27/17 15:10 108 H 22 96 02/27/17 15:00 114 H 21 99 02/27/17 14:50 110 H 21 97 02/27/17 14:40 110 H 23 98 02/27/17 14:30 110 H 22 99 02/27/17 14:20 110 H 23 97 Intake and Output (Last 8hrs): Intake & Output 02/27/17 02/27/17 02/27/17 06:59 14:59 22:59 Intake Total 1120 205 Output Total 750 Balance 370 205 Intake: IV 1120 meds 1120 Blood Product 195 Apheresis Plts Acda Lr 195 Irr 2nd Unit [id number] Other 10 Apheresis Plts Acda Lr 10 Irr 2nd Unit [id number] Output: Urine 750 Urine, Voided 750 Other: # Voids Urine, Voided 1 # Bowel Movements 2 - Physical Exam Physical Exam Limitations: Positive for: Altered Mental Status Head: Positive for: Atraumatic, Normocephalic Pupils: Positive for: PERRL, Sluggish Extroacular Muscles: Positive for: EOMI Conjunctiva: Positive for: Normal Mouth: Positive for: Dry Respiratory/Chest: Positive for: Clear to Auscultation, Wheezes (expiratory on Right ), Rales (bilateral at bases ). Negative for: Respiratory Distress Cardiovascular: Positive for: Regular Rate and Rhythm, Normal S1, S2. Negative for: Murmurs Abdomen: Positive for: Guarding. Negative for: Tenderness, Distention, Peritoneal Signs Upper Extremity: Positive for: Normal Inspection. Negative for: Cyanosis, Edema Lower Extremity: Positive for: Normal Inspection. Negative for: Edema Skin: Positive for: Warm, Dry Psychiatric: Positive for: Other (poor mental status) - Medications Active Medications: Active Medications Generic Name Dose Route Start Last Admin Trade Name Freq PRN Reason Stop Dose Admin Octreotide Acetate 1,250 mcg/ 252.5 mls @ 10.1 mls/hr 02/26/17 15:15 15:41 Sodium Chloride IV 50 mcg/hr .Q24H ED 10.1 mls/hr Protocol Administration 50 MCG/HR Pantoprazole Sodium 40 mg in 100 mls @ 20 mls/hr 02/26/17 16:45 02/27/17 13: 20 Protonix 40mg Ivpb IVPB 20 mls/hr .Q5H ED Administration Vancomycin HCl 1 gm in 250 mls @ 167 mls/hr 02/27/17 03:00 02/27/17 16:22 Vancomycin 1gm IVPB 167 mls/hr Q12H ED Administration Protocol Piperacillin Sod/Tazobactam Sod 100 mls @ 200 mls/hr 02/27/17 18:00 Zosyn 3.375 In Ns 100ml IVPB 03/08/17 18:01 Q6 ED Protocol Lactulose 200 gm 02/27/17 17:15 Generlac AR Q6H ED Lorazepam 2 mg 02/27/17 11:24 Ativan IVP Q6H PRN Withdrawal Protocol - Patient Studies Lab Studies: Lab Studies 02/27/17 02/27/17 02/27/17 Range/Units 11:35 06:39 06:30 WBC 8.4 (4.5-11.0) 10^3/ul RBC 2.21 L (3.5-6.1) 10^6/uL Hgb 8.2 L (14.0-18.0) g/dL Hct 23.7 L (42.0-52.0) % MCV 107.2 H (80.0-105.0) fl MCH 37.1 H (25.0-35.0) pg MCHC 34.6 (31.0-37.0) g/dl RDW 15.2 H (11.5-14.5) % Plt Count 47 L* (120.0-450.0) 10^3/uL MPV 10.3 (7.0-11.0) fl Gran % 65.3 (50.0-68.0) % Lymph % (Auto) 24.0 (22.0-35.0) % [place] % (Auto) 9.1 H (1.0-6.0) % Eos % (Auto) 0.2 L (1.5-5.0) % Baso % (Auto) 1.4 (0.0-3.0) % Gran # 5.49 (1.4-6.5) Lymph # 2.0 (1.2-3.4) [place] # 0.8 H (0.1-0.6) Eos # 0.0 (0.0-0.7) Baso # 0.12 (0.0-2.0) K/mm3 PT (9.9-11.8) Seconds INR (0.93-1.08) APTT (23.7-30.8) Seconds pO2 (30-55) mm/Hg VBG pH (7.32-7.43) VBG pCO2 (40-60) VBG HCO3 (21-28) mmol/l VBG Total CO2 (22-28) mmol.L VBG O2 Sat (Calc) (40-65) % VBG Base Excess (0.0-2.0) mmol/L VBG Potassium (3.6-5.2) mmol/L Sodium (132-148) mmol/L Chloride (98-107) mmol/L Glucose (75-110) mg/dl Lactate (0.7-2.1) mmol/L FiO2 % Potassium (3.6-5.0) mmol/L Carbon Dioxide (21-33) mmol/L Anion Gap (10-20) BUN (7-21) mg/dL Creatinine (0.8-1.5) mg/dL Est GFR ( Amer) Est GFR (Non-Af Amer) POC Glucose (mg/dL) 122 H (65-110) mg/dL Random Glucose (70-110) mg/dL Lactic Acid (0.7-2.1) mmol/L Calcium (8.4-10.5) mg/dL Phosphorus (2.5-4.5) mg/dL Magnesium (1.7-2.2) mg/dL Total Bilirubin (0.2-1.3) mg/dL AST (17-59) U/L ALT (7-56) U/L Alkaline Phosphatase (38-126) U/L Lactate Dehydrogenase (333-699) U/L Total Creatine Kinase (35-230) U/L CK-MB (CK-2) (0.0-3.6) ng/mL CK-MB (CK-2) % (2.5-3.0) % Troponin I ng/mL Total Protein (5.8-8.3) g/dL Albumin (3.0-4.8) g/dL Globulin gm/dL Albumin/Globulin Ratio (1.1-1.8) Venous Blood Potassium (3.6-5.2) mmol/L Hepatitis A IgM Ab (NEGATIVE) Hep Bs Antigen Negative (NEGATIVE) Hep B Core IgM Ab Negative (NEGATIVE) Hepatitis C Antibody (NEGATIVE) 02/27/17 02/27/17 02/27/17 Range/Units 06:30 05:50 05:40 WBC 9.9 (4.5-11.0) 10^3/ul RBC 2.01 L (3.5-6.1) 10^6/uL Hgb 7.4 L (14.0-18.0) g/dL Hct 21.9 L (42.0-52.0) % MCV 109.0 H (80.0-105.0) fl MCH 36.8 H (25.0-35.0) pg MCHC 33.8 (31.0-37.0) g/dl RDW 15.4 H (11.5-14.5) % Plt Count 47 L* (120.0-450.0) 10^3/uL MPV 10.2 (7.0-11.0) fl Gran % 54.8 (50.0-68.0) % Lymph % (Auto) 30.0 (22.0-35.0) % [place] % (Auto) 14.7 H (1.0-6.0) % Eos % (Auto) 0.2 L (1.5-5.0) % Baso % (Auto) 0.3 (0.0-3.0) % Gran # 5.42 (1.4-6.5) Lymph # 3.0 (1.2-3.4) [place] # 1.5 H (0.1-0.6) Eos # 0.0 (0.0-0.7) Baso # 0.03 (0.0-2.0) K/mm3 PT (9.9-11.8) Seconds INR (0.93-1.08) APTT (23.7-30.8) Seconds pO2 (30-55) mm/Hg VBG pH (7.32-7.43) VBG pCO2 (40-60) VBG HCO3 (21-28) mmol/l VBG Total CO2 (22-28) mmol.L VBG O2 Sat (Calc) (40-65) % VBG Base Excess (0.0-2.0) mmol/L VBG Potassium (3.6-5.2) mmol/L Sodium 138 (132-148) mmol/L Chloride 98 (98-107) mmol/L Glucose (75-110) mg/dl Lactate (0.7-2.1) mmol/L FiO2 % Potassium 3.9 (3.6-5.0) mmol/L Carbon Dioxide 37 H (21-33) mmol/L Anion Gap 7 L (10-20) BUN 31 H (7-21) mg/dL Creatinine 0.8 (0.8-1.5) mg/dL Est GFR ( Amer) > 60 Est GFR (Non-Af Amer) > 60 POC Glucose (mg/dL) (65-110) mg/dL Random Glucose 127 H (70-110) mg/dL Lactic Acid (0.7-2.1) mmol/L Calcium 7.6 L (8.4-10.5) mg/dL Phosphorus 2.2 L (2.5-4.5) mg/dL Magnesium 2.0 (1.7-2.2) mg/dL Total Bilirubin 5.0 H (0.2-1.3) mg/dL AST 1312 H (17-59) U/L ALT 411 H (7-56) U/L Alkaline Phosphatase 75 (38-126) U/L Lactate Dehydrogenase (333-699) U/L Total Creatine Kinase (35-230) U/L CK-MB (CK-2) (0.0-3.6) ng/mL CK-MB (CK-2) % (2.5-3.0) % Troponin I 0.21 H* D ng/mL Total Protein 5.7 L (5.8-8.3) g/dL Albumin 2.5 L (3.0-4.8) g/dL Globulin 3.2 gm/dL Albumin/Globulin Ratio 0.8 L (1.1-1.8) Venous Blood Potassium (3.6-5.2) mmol/L Hepatitis A IgM Ab Negative (NEGATIVE) Hep Bs Antigen Negative (NEGATIVE) Hep B Core IgM Ab Negative (NEGATIVE) Hepatitis C Antibody Negative (NEGATIVE) 02/27/17 02/27/17 02/26/17 Range/Units 05:40 00:40 19:39 WBC 10.9 (4.5-11.0) 10^3/ul RBC 2.28 L (3.5-6.1) 10^6/uL Hgb 8.4 L (14.0-18.0) g/dL Hct 24.6 L (42.0-52.0) % MCV 107.9 H (80.0-105.0) fl MCH 36.8 H (25.0-35.0) pg MCHC 34.1 (31.0-37.0) g/dl RDW 15.0 H (11.5-14.5) % Plt Count 66 L (120.0-450.0) 10^3/uL MPV 10.3 (7.0-11.0) fl Gran % 61.1 (50.0-68.0) % Lymph % (Auto) 24.8 (22.0-35.0) % [place] % (Auto) 14.0 H (1.0-6.0) % Eos % (Auto) 0.0 L (1.5-5.0) % Baso % (Auto) 0.1 (0.0-3.0) % Gran # 6.68 H (1.4-6.5) Lymph # 2.7 (1.2-3.4) [place] # 1.5 H (0.1-0.6) Eos # 0.0 (0.0-0.7) Baso # 0.01 (0.0-2.0) K/mm3 PT 21.6 H (9.9-11.8) Seconds INR 2.00 H (0.93-1.08) APTT 40.0 H 36.1 H (23.7-30.8) Seconds pO2 (30-55) mm/Hg VBG pH (7.32-7.43) VBG pCO2 (40-60) VBG HCO3 (21-28) mmol/l VBG Total CO2 (22-28) mmol.L VBG O2 Sat (Calc) (40-65) % VBG Base Excess (0.0-2.0) mmol/L VBG Potassium (3.6-5.2) mmol/L Sodium (132-148) mmol/L Chloride (98-107) mmol/L Glucose (75-110) mg/dl Lactate (0.7-2.1) mmol/L FiO2 % Potassium (3.6-5.0) mmol/L Carbon Dioxide (21-33) mmol/L Anion Gap (10-20) BUN (7-21) mg/dL Creatinine (0.8-1.5) mg/dL Est GFR ( Amer) Est GFR (Non-Af Amer) POC Glucose (mg/dL) (65-110) mg/dL Random Glucose (70-110) mg/dL Lactic Acid (0.7-2.1) mmol/L Calcium (8.4-10.5) mg/dL Phosphorus (2.5-4.5) mg/dL Magnesium (1.7-2.2) mg/dL Total Bilirubin (0.2-1.3) mg/dL AST (17-59) U/L ALT (7-56) U/L Alkaline Phosphatase (38-126) U/L Lactate Dehydrogenase (333-699) U/L Total Creatine Kinase (35-230) U/L CK-MB (CK-2) (0.0-3.6) ng/mL CK-MB (CK-2) % (2.5-3.0) % Troponin I ng/mL Total Protein (5.8-8.3) g/dL Albumin (3.0-4.8) g/dL Globulin gm/dL Albumin/Globulin Ratio (1.1-1.8) Venous Blood Potassium (3.6-5.2) mmol/L Hepatitis A IgM Ab (NEGATIVE) Hep Bs Antigen (NEGATIVE) Hep B Core IgM Ab (NEGATIVE) Hepatitis C Antibody (NEGATIVE) 02/26/17 02/26/17 02/26/17 Range/Units 19:39 19:39 19:39 WBC (4.5-11.0) 10^3/ul RBC (3.5-6.1) 10^6/uL Hgb (14.0-18.0) g/dL Hct (42.0-52.0) % MCV (80.0-105.0) fl MCH (25.0-35.0) pg MCHC (31.0-37.0) g/dl RDW (11.5-14.5) % Plt Count (120.0-450.0) 10^3/uL MPV (7.0-11.0) fl Gran % (50.0-68.0) % Lymph % (Auto) (22.0-35.0) % [place] % (Auto) (1.0-6.0) % Eos % (Auto) (1.5-5.0) % Baso % (Auto) (0.0-3.0) % Gran # (1.4-6.5) Lymph # (1.2-3.4) [place] # (0.1-0.6) Eos # (0.0-0.7) Baso # (0.0-2.0) K/mm3 PT 23.2 H (9.9-11.8) Seconds INR 2.15 H (0.93-1.08) APTT (23.7-30.8) Seconds pO2 52 (30-55) mm/Hg VBG pH 7.45 H (7.32-7.43) VBG pCO2 42.0 (40-60) VBG HCO3 29.2 H (21-28) mmol/l VBG Total CO2 30.5 H (22-28) mmol.L VBG O2 Sat (Calc) 90.6 H (40-65) % VBG Base Excess 4.7 H (0.0-2.0) mmol/L VBG Potassium 4.9 (3.6-5.2) mmol/L Sodium 136.0 (132-148) mmol/L Chloride 98.0 (98-107) mmol/L Glucose 110 (75-110) mg/dl Lactate 8.7 H* (0.7-2.1) mmol/L FiO2 21.0 % Potassium (3.6-5.0) mmol/L Carbon Dioxide (21-33) mmol/L Anion Gap (10-20) BUN (7-21) mg/dL Creatinine (0.8-1.5) mg/dL Est GFR ( Amer) Est GFR (Non-Af Amer) POC Glucose (mg/dL) (65-110) mg/dL Random Glucose (70-110) mg/dL Lactic Acid (0.7-2.1) mmol/L Calcium (8.4-10.5) mg/dL Phosphorus (2.5-4.5) mg/dL Magnesium (1.7-2.2) mg/dL Total Bilirubin (0.2-1.3) mg/dL AST (17-59) U/L ALT (7-56) U/L Alkaline Phosphatase (38-126) U/L Lactate Dehydrogenase 2772 H (333-699) U/L Total Creatine Kinase 327 H (35-230) U/L CK-MB (CK-2) 7.2 H (0.0-3.6) ng/mL CK-MB (CK-2) % 2.2 L (2.5-3.0) % Troponin I 0.45 H* D ng/mL Total Protein (5.8-8.3) g/dL Albumin (3.0-4.8) g/dL Globulin gm/dL Albumin/Globulin Ratio (1.1-1.8) Venous Blood Potassium 4.9 (3.6-5.2) mmol/L Hepatitis A IgM Ab (NEGATIVE) Hep Bs Antigen (NEGATIVE) Hep B Core IgM Ab (NEGATIVE) Hepatitis C Antibody (NEGATIVE) 02/26/17 Range/Units 19:39 WBC (4.5-11.0) 10^3/ul RBC (3.5-6.1) 10^6/uL Hgb (14.0-18.0) g/dL Hct (42.0-52.0) % MCV (80.0-105.0) fl MCH (25.0-35.0) pg MCHC (31.0-37.0) g/dl RDW (11.5-14.5) % Plt Count (120.0-450.0) 10^3/uL MPV (7.0-11.0) fl Gran % (50.0-68.0) % Lymph % (Auto) (22.0-35.0) % [place] % (Auto) (1.0-6.0) % Eos % (Auto) (1.5-5.0) % Baso % (Auto) (0.0-3.0) % Gran # (1.4-6.5) Lymph # (1.2-3.4) [place] # (0.1-0.6) Eos # (0.0-0.7) Baso # (0.0-2.0) K/mm3 PT (9.9-11.8) Seconds INR (0.93-1.08) APTT (23.7-30.8) Seconds pO2 (30-55) mm/Hg VBG pH (7.32-7.43) VBG pCO2 (40-60) VBG HCO3 (21-28) mmol/l VBG Total CO2 (22-28) mmol.L VBG O2 Sat (Calc) (40-65) % VBG Base Excess (0.0-2.0) mmol/L VBG Potassium (3.6-5.2) mmol/L Sodium (132-148) mmol/L Chloride (98-107) mmol/L Glucose (75-110) mg/dl Lactate (0.7-2.1) mmol/L FiO2 % Potassium (3.6-5.0) mmol/L Carbon Dioxide (21-33) mmol/L Anion Gap (10-20) BUN (7-21) mg/dL Creatinine (0.8-1.5) mg/dL Est GFR ( Amer) Est GFR (Non-Af Amer) POC Glucose (mg/dL) (65-110) mg/dL Random Glucose (70-110) mg/dL Lactic Acid 7.7 H* (0.7-2.1) mmol/L Calcium (8.4-10.5) mg/dL Phosphorus (2.5-4.5) mg/dL Magnesium (1.7-2.2) mg/dL Total Bilirubin (0.2-1.3) mg/dL AST (17-59) U/L ALT (7-56) U/L Alkaline Phosphatase (38-126) U/L Lactate Dehydrogenase (333-699) U/L Total Creatine Kinase (35-230) U/L CK-MB (CK-2) (0.0-3.6) ng/mL CK-MB (CK-2) % (2.5-3.0) % Troponin I ng/mL Total Protein (5.8-8.3) g/dL Albumin (3.0-4.8) g/dL Globulin gm/dL Albumin/Globulin Ratio (1.1-1.8) Venous Blood Potassium (3.6-5.2) mmol/L Hepatitis A IgM Ab (NEGATIVE) Hep Bs Antigen (NEGATIVE) Hep B Core IgM Ab (NEGATIVE) Hepatitis C Antibody (NEGATIVE) Laboratory Results - last 24 hr 02/26/17 02/26/17 02/26/17 19:39 19:39 19:39 WBC RBC Hgb Hct MCV MCH MCHC RDW Plt Count MPV Gran % Lymph % (Auto) [place] % (Auto) Eos % (Auto) Baso % (Auto) Gran # Lymph # [place] # Eos # Baso # PT 23.2 H INR 2.15 H APTT pO2 52 VBG pH 7.45 H VBG pCO2 42.0 VBG HCO3 29.2 H VBG Total CO2 30.5 H VBG O2 Sat (Calc) 90.6 H VBG Base Excess 4.7 H VBG Potassium 4.9 Sodium 136.0 Chloride 98.0 Glucose 110 Lactate 8.7 H* FiO2 21.0 Potassium Carbon Dioxide Anion Gap BUN Creatinine Est GFR ( Amer) Est GFR (Non-Af Amer) POC Glucose (mg/dL) Random Glucose Lactic Acid 7.7 H* Calcium Phosphorus Magnesium Total Bilirubin AST ALT Alkaline Phosphatase Lactate Dehydrogenase Total Creatine Kinase CK-MB (CK-2) CK-MB (CK-2) % Troponin I Total Protein Albumin Globulin Albumin/Globulin Ratio Venous Blood Potassium 4.9 Hepatitis A IgM Ab Hep Bs Antigen Hep B Core IgM Ab Hepatitis C Antibody 02/26/17 02/26/17 02/27/17 19:39 19:39 00:40 WBC 10.9 RBC 2.28 L Hgb 8.4 L Hct 24.6 L MCV 107.9 H MCH 36.8 H MCHC 34.1 RDW 15.0 H Plt Count 66 L MPV 10.3 Gran % 61.1 Lymph % (Auto) 24.8 [place] % (Auto) 14.0 H Eos % (Auto) 0.0 L Baso % (Auto) 0.1 Gran # 6.68 H Lymph # 2.7 [place] # 1.5 H Eos # 0.0 Baso # 0.01 PT INR APTT 36.1 H pO2 VBG pH VBG pCO2 VBG HCO3 VBG Total CO2 VBG O2 Sat (Calc) VBG Base Excess VBG Potassium Sodium Chloride Glucose Lactate FiO2 Potassium Carbon Dioxide Anion Gap BUN Creatinine Est GFR ( Amer) Est GFR (Non-Af Amer) POC Glucose (mg/dL) Random Glucose Lactic Acid Calcium Phosphorus Magnesium Total Bilirubin AST ALT Alkaline Phosphatase Lactate Dehydrogenase 2772 H Total Creatine Kinase 327 H CK-MB (CK-2) 7.2 H CK-MB (CK-2) % 2.2 L Troponin I 0.45 H* D Total Protein Albumin Globulin Albumin/Globulin Ratio Venous Blood Potassium Hepatitis A IgM Ab Hep Bs Antigen Hep B Core IgM Ab Hepatitis C Antibody 02/27/17 02/27/17 02/27/17 05:40 05:40 05:50 WBC 9.9 RBC 2.01 L Hgb 7.4 L Hct 21.9 L MCV 109.0 H MCH 36.8 H MCHC 33.8 RDW 15.4 H Plt Count 47 L* MPV 10.2 Gran % 54.8 Lymph % (Auto) 30.0 [place] % (Auto) 14.7 H Eos % (Auto) 0.2 L Baso % (Auto) 0.3 Gran # 5.42 Lymph # 3.0 [place] # 1.5 H Eos # 0.0 Baso # 0.03 PT 21.6 H INR 2.00 H APTT 40.0 H pO2 VBG pH VBG pCO2 VBG HCO3 VBG Total CO2 VBG O2 Sat (Calc) VBG Base Excess VBG Potassium Sodium 138 Chloride 98 Glucose Lactate FiO2 Potassium 3.9 Carbon Dioxide 37 H Anion Gap 7 L BUN 31 H Creatinine 0.8 Est GFR ( Amer) > 60 Est GFR (Non-Af Amer) > 60 POC Glucose (mg/dL) Random Glucose 127 H Lactic Acid Calcium 7.6 L Phosphorus 2.2 L Magnesium 2.0 Total Bilirubin 5.0 H AST 1312 H ALT 411 H Alkaline Phosphatase 75 Lactate Dehydrogenase Total Creatine Kinase CK-MB (CK-2) CK-MB (CK-2) % Troponin I 0.21 H* D Total Protein 5.7 L Albumin 2.5 L Globulin 3.2 Albumin/Globulin Ratio 0.8 L Venous Blood Potassium Hepatitis A IgM Ab Hep Bs Antigen Hep B Core IgM Ab Hepatitis C Antibody 02/27/17 02/27/17 02/27/17 06:30 06:30 06:39 WBC RBC Hgb Hct MCV MCH MCHC RDW Plt Count MPV Gran % Lymph % (Auto) [place] % (Auto) Eos % (Auto) Baso % (Auto) Gran # Lymph # [place] # Eos # Baso # PT INR APTT pO2 VBG pH VBG pCO2 VBG HCO3 VBG Total CO2 VBG O2 Sat (Calc) VBG Base Excess VBG Potassium Sodium Chloride Glucose Lactate FiO2 Potassium Carbon Dioxide Anion Gap BUN Creatinine Est GFR ( Amer) Est GFR (Non-Af Amer) POC Glucose (mg/dL) 122 H Random Glucose Lactic Acid Calcium Phosphorus Magnesium Total Bilirubin AST ALT Alkaline Phosphatase Lactate Dehydrogenase Total Creatine Kinase CK-MB (CK-2) CK-MB (CK-2) % Troponin I Total Protein Albumin Globulin Albumin/Globulin Ratio Venous Blood Potassium Hepatitis A IgM Ab Negative Hep Bs Antigen Negative Negative Hep B Core IgM Ab Negative Negative Hepatitis C Antibody Negative 02/27/17 11:35 WBC 8.4 RBC 2.21 L Hgb 8.2 L Hct 23.7 L MCV 107.2 H MCH 37.1 H MCHC 34.6 RDW 15.2 H Plt Count 47 L* MPV 10.3 Gran % 65.3 Lymph % (Auto) 24.0 [place] % (Auto) 9.1 H Eos % (Auto) 0.2 L Baso % (Auto) 1.4 Gran # 5.49 Lymph # 2.0 [place] # 0.8 H Eos # 0.0 Baso # 0.12 PT INR APTT pO2 VBG pH VBG pCO2 VBG HCO3 VBG Total CO2 VBG O2 Sat (Calc) VBG Base Excess VBG Potassium Sodium Chloride Glucose Lactate FiO2 Potassium Carbon Dioxide Anion Gap BUN Creatinine Est GFR ( Amer) Est GFR (Non-Af Amer) POC Glucose (mg/dL) Random Glucose Lactic Acid Calcium Phosphorus Magnesium Total Bilirubin AST ALT Alkaline Phosphatase Lactate Dehydrogenase Total Creatine Kinase CK-MB (CK-2) CK-MB (CK-2) % Troponin I Total Protein Albumin Globulin Albumin/Globulin Ratio Venous Blood Potassium Hepatitis A IgM Ab Hep Bs Antigen Hep B Core IgM Ab Hepatitis C Antibody Fingerstick Blood Sugar Results: 139 Critical Care Progress Note - Ventilator Checklist Daily Spontaneous Breathing Trial: Yes PUD Prophalyxis: Yes DVT Prophylaxis: Yes - Nutrition Nutrition: Nutrition Category Date Time Status NPO Diet [DIET] Diets 02/26/17 Lunch Ordered Assessment/Plan - Assessment and Plan (Free Text) Assessment: 56 y/o M w/ UGI bleed in the setting of alcohol abuse. Noted to have old blood on UGI endoscopy and signs of Mesenteric ischemia Case d/w Gi and IR. Plans for mesenteric angiogram and possible stent intervention. Anticoagulation was not started due to active bleeding seen on UGI scope. Vascular surgery consulted, although likely not a candidate due to morbidity Encephalopathy noted, with elevated ammonia. Lactulose to be started via NGT/ DF post IR procedure. Hish risk patient for bleed and laparotomy. Poor prognosis. PII and octretide continued. No active bleeding varicies. Asprin plavix not started. Palliative care needed cc time 45 min
[2017-02-27 18:25] LABS: BASO # 0.01 K/mm3 (0.0-2.0); BASO % 0.2 % (0.0-3.0); EOS % 0.2 % (1.5-5.0); GRAN # 4.6 (1.4-6.5); GRAN % 69.7 % (50.0-68.0); LYMPH # 1.4 (1.2-3.4); LYMPH % 21.1 % (22.0-35.0); MEAN CELL VOLUME 108.9 fl (80.0-105.0); MEAN CORPUSCULAR HEMOGLOBIN 37.5 pg (25.0-35.0); MEAN CORPUSCULAR HGB CONC 34.4 g/dl (31.0-37.0); MEAN PLATELET VOLUME 9.6 fl (7.0-11.0); MONO # 0.6 (0.1-0.6); MONO % 8.8 % (1.0-6.0); RED CELL DISTRIBUTION WIDTH 15.3 % (11.5-14.5); WHITE BLOOD COUNT 6.6 10^3/ul (4.5-11.0)
[2017-02-27 18:28] LABS: HEMATOCRIT 20.9 % (42.0-52.0)
[2017-02-27] MEDS: Dextrose 5%/0.9% NS 1,000 ML IV SCH (19:12)
[2017-02-27] MEDS ORDERED: Iodixanol 320 MG/ML 100 ML BOTTLE IV ONE ×3 (19:44→21:46)
[2017-02-27] MEDS ORDERED: Lidocaine 2% Inj (20ml) ONE (19:44)
[2017-02-27] MEDS ORDERED: Iodixanol 320 MG/ML 200 ML BOTTLE IV ONE (19:44)
[2017-02-27] MEDS ORDERED: Nitroglycerin 50mg in D5W 50 MG/250 ML BOTTLE IV ONE (19:44)
[2017-02-27 20:04] LABS: ALB/GLOB RATIO 0.8 (1.1-1.8); ALKALINE PHOSPHATASE 85 U/L (38-126); ALT/SGPT 392 U/L (7-56); AMYLASE 52 U/L (35-125); BILIRUBIN,TOTAL 4.2 mg/dL (0.2-1.3); BLOOD UREA NITROGEN 26 mg/dL (7-21); CALCIUM 7.7 mg/dL (8.4-10.5); CARBON DIOXIDE 35 mmol/L (21-33); CHLORIDE 100 mmol/L (95-110); GFR AFRICAN-AMERICAN > 60; GLUCOSE,RANDOM 133 mg/dL (70-110); POTASSIUM 3.7 mmol/L (3.6-5.0); SODIUM 138 mmol/L (132-148)
[2017-02-27] MEDS ORDERED: Midazolam 2 MG/2 ML VIAL ONE (20:07)
[2017-02-27 20:12] LABS: AST/SGOT 1127 U/L (17-59)
--- NOTE | 2017-02-27 22:49 | VASCULAR ---
PROCEDURE: 1. Celiac, SMA, and JOSH arteriogram 2. SMA origin angioplasty and stent placement 3. JOSH origin angioplasty and stent placed HISTORY: Severe acute mesenteric ischemia. Cirrhosis. Gastric ischemia. Poor surgical candidate. PHYSICIAN(S): Renato Bennett MD. TECHNIQUE: The relative risks and indications of the procedure were explained to the patient's family and consent obtained. The patient is placed supine on the arteriogram table in a right groin prepped and draped usual sterile fashion. Monitoring was provided throughout the procedure by a nurse. The right common femoral artery was punctured and a 5 Jamaican sheath placed. PA and lateral aorta grams were performed. This revealed calcification apparent occlusions of the proximal celiac axis and SMA. A 7 Jamaican 25 cm sheath was placed. 5 Jamaican C2 catheter was placed in the origin of the SMA. DSA SMA arteriogram was performed. This revealed a critical heavily calcified stenosis of the proximal SMA. The stenosis was crossed with angled glidewire. A 0.035 Basilio wire was placed. Heparin 6000 units IV and nitroglycerin in 250 MC G aliquots were given. The heavily calcified SMA origin was pre dilated with a 4 mm balloon. Next the proximal SMA was dilated with a 7 mm balloon. An 8 mm x 4 cm self expanding Nitinol stent was placed in the origin of the SMA. It was post dilated with an 8 mm and 9 mm balloon. An excellent angiographic result was obtained. The C2 catheter was placed in the origin of the celiac axis. Is heavily calcified occluded. The occlusion was probed good but could not be crossed with a guidewire. Final is C2 catheter was placed the origin of the large JOSH. Selective JOSH arteriograms were performed. 0.014 guidewires placed the JOSH. The JOSH origin was dilated with a 6 mm balloon. A a 6 mm x 15 mm balloon expandable stent was placed the origin of the JOSH. A mild residual waist was encounter. Brisk antegrade flow was seen. Completion angiograms were performed. The sheath was removed hemostasis obtained with a Perclose device. FINDINGS: The celiac axis and SMA origins are heavily calcified occluded on the PA and lateral aorta grams. Niland calcifications noted at the origin of the celiac axis. This was probed and could not be crossed. There is a critical 99 percent calcified stenosis of the origin of the SMA. This was successfully dilated with subsequent placement of an 8 mm by 4 cm self expanding stent. The JOSH is large with an 80 percent stenosis at its origin. This was successfully dilated with a 6 mm balloon expandable stent. IMPRESSION: 1. 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 2. Successful angioplasty and stent placement in the SMA origin as described above. 3. Calcified chronically occluded celiac axis origin. This could not be recannulized. 4. 80 percent focal stenosis of the JOSH origin. 5. Successful angioplasty and stent placement in the JOSH origin as described above.
[2017-02-27 23:44] LABS: BASO # 0.01 K/mm3 (0.0-2.0); BASO % 0.1 % (0.0-3.0); EOS % 0.3 % (1.5-5.0); GRAN # 5.57 (1.4-6.5); GRAN % 72.5 % (50.0-68.0); LYMPH # 1.5 (1.2-3.4); LYMPH % 19.4 % (22.0-35.0); MEAN CELL VOLUME 108.5 fl (80.0-105.0); MEAN CORPUSCULAR HEMOGLOBIN 37.7 pg (25.0-35.0); MEAN CORPUSCULAR HGB CONC 34.7 g/dl (31.0-37.0); MEAN PLATELET VOLUME 9.7 fl (7.0-11.0); MONO # 0.6 (0.1-0.6); MONO % 7.7 % (1.0-6.0); RED CELL DISTRIBUTION WIDTH 15.2 % (11.5-14.5); WHITE BLOOD COUNT 7.7 10^3/ul (4.5-11.0)
[2017-02-27 23:57] LABS: HEMATOCRIT 21.6 % (42.0-52.0)
[2017-02-28] MEDS: Piperacillin/Tazobact 3.375 gm 100 ML IVPB SCH ×4 (00:30→23:46)
[2017-02-28 00:55] LABS: INR 1.8 (0.93-1.08)
[2017-02-28] MEDS ORDERED: Metoprolol 1 mg/ml Inj IVP ONE (01:00)
[2017-02-28] MEDS: Pantoprazole 40mg/100ml IVPB 40 MG/100 ML BAG IVPB SCH ×3 (01:46→13:02)
[2017-02-28] MEDS ORDERED: Sodium Chloride 0.9% 1,000 ML IV SCH (03:30)
[2017-02-28] MEDS ORDERED: Propofol 10 mg/ml 1,000 MG/100 ML VIAL ONE (03:57)
[2017-02-28 04:05] LABS: BASO # 0.01 K/mm3 (0.0-2.0); BASO % 0.1 % (0.0-3.0); EOS % 0.3 % (1.5-5.0); GRAN # 4.22 (1.4-6.5); GRAN % 61.4 % (50.0-68.0); LYMPH # 1.9 (1.2-3.4); LYMPH % 28.2 % (22.0-35.0); MEAN CELL VOLUME 104.4 fl (80.0-105.0); MEAN CORPUSCULAR HEMOGLOBIN 34.8 pg (25.0-35.0); MEAN CORPUSCULAR HGB CONC 33.3 g/dl (31.0-37.0); MEAN PLATELET VOLUME 9.9 fl (7.0-11.0); MONO # 0.7 (0.1-0.6); WHITE BLOOD COUNT 6.9 10^3/ul (4.5-11.0)
[2017-02-28 04:09] LABS: INR 2.17 (0.93-1.08)
[2017-02-28 04:12] LABS: HEMATOCRIT 18.9 % (42.0-52.0)
[2017-02-28 04:13] LABS: ALB/GLOB RATIO 0.8 (1.1-1.8); ALKALINE PHOSPHATASE 59 U/L (38-126); ALT/SGPT 286 U/L (7-56); AST/SGOT 675 U/L (17-59); BILIRUBIN,TOTAL 3.7 mg/dL (0.2-1.3); BLOOD UREA NITROGEN 25 mg/dL (7-21); CALCIUM 7.1 mg/dL (8.4-10.5); CARBON DIOXIDE 24 mmol/L (21-33); CHLORIDE 105 mmol/L (95-110); GFR AFRICAN-AMERICAN > 60; GLUCOSE,RANDOM 128 mg/dL (70-110); MAGNESIUM 1.9 mg/dL (1.7-2.2); PHOSPHOROUS 1.8 mg/dL (2.5-4.5); POTASSIUM 3.6 mmol/L (3.6-5.0); SODIUM 141 mmol/L (132-148); TOTAL PROTEIN 4.5 g/dL (5.8-8.3)
--- NOTE | 2017-02-28 04:38 | CP.PCM.PN ---
Subjective - Date & Time of Evaluation Date of Evaluation: 02/28/17 Time of Evaluation: 04:34 - Subjective Subjective: pt in severe respiratory distress. gi bleed. h/h 6.3/18. platelets 53. PT 23, PULSE OX 67. Objective - Vital Signs/Intake and Output Vital Signs (last 24 hours): Temp Pulse Resp BP Pulse Ox 97.3 F L 122 H 22 119/71 96 02/28/17 03:12 02/28/17 03:12 02/28/17 03:12 02/28/17 03:12 02/27/17 15:10 Intake and Output: 02/27/17 02/28/17 18:59 06:59 Intake Total 1897.5 325 Output Total 0 Balance 1897.5 325 - Medications Medications: Current Medications Octreotide Acetate 1,250 mcg/ (Sodium Chloride) 252.5 mls @ 10.1 mls/hr IV .Q24H ED; 50 MCG/HR PRN Reason: Protocol Last Admin: 02/27/17 19:29 Dose: 50 mcg/hr, 10.1 mls/hr Pantoprazole Sodium (Protonix 40mg Ivpb) 40 mg in 100 mls @ 20 mls/hr IVPB .Q5H ED Last Admin: 02/28/17 01:46 Dose: 20 mls/hr Piperacillin Sod/Tazobactam Sod (Zosyn 3.375 In Ns 100ml) 100 mls @ 200 mls/hr IVPB Q6 ED PRN Reason: Protocol Stop: 03/08/17 18:01 Last Admin: 02/28/17 00:30 Dose: 200 mls/hr Dextrose/Sodium Chloride (Dextrose 5%/0.9% Ns 1000 Ml) 1,000 mls @ 125 mls/hr IV .Q8H ED Last Admin: 02/27/17 19:12 Dose: 125 mls/hr Sodium Chloride (Sodium Chloride 0.9%) 1,000 mls @ 100 mls/hr IV .Q10H ED Phenylephrine HCl 40 mg/ (Sodium Chloride) 254 mls @ 38.1 mls/hr IV .Q6H40M PRN ; Protocol; 100 MCG/MIN PRN Reason: TITRATE PER MD ORDER Lactulose (Generlac) 200 gm MA Q6H ED Last Admin: 02/27/17 23:31 Dose: 200 gm Lorazepam (Ativan) 2 mg IVP Q6H PRN; Protocol PRN Reason: Withdrawal - Labs Labs: 02/28/17 03:50 02/28/17 03:50 PT 23.4 Seconds (9.9-11.8) H 02/28/17 03:50 INR 2.17 (0.93-1.08) H 02/28/17 03:50 APTT 40.0 Seconds (23.7-30.8) H 02/27/17 05:40 Assessment and Plan - Assessment and Plan (Free Text) Assessment: severe respiratory distress /hypoxia . GI bleed . Plan: pt intubated with 7.5 ET tube.
[2017-02-28 04:40] LABS: ARTERIAL BLOOD GAS HCO3 19.7 mmol/L (21-28); ARTERIAL BLOOD GAS PH 7.26 (7.35-7.45)
--- NOTE | 2017-02-28 05:18 | PCM.PROC ---
Procedures Attestation:: I certify that I have explained the specified Operation(s) or Procedure(s), risks, benefits and reasonable alternatives to the Patient and/or other person responsible. The opportunity was given to ask questions and all questions answered - Central Line Placement Left Femoral Triple Lumen Catheter Aseptic technique was employed throughout the procedure: Hand Hygiene done prior to procedure Pt. Placed on Pulse Ox Monitor: Yes Ultrasound Used for Placement: Yes Central Line Lumen Inserted: triple Central Line Length: 20 cm Post Procedure: Sutured in Place, Good Blood Return, All Ports Aspirated, Flushed, Capped Secured by: Suture Post procedure dressing: Clear vapor permeable Patient Tolerated Procedure: Well Immediate Complications: None Additional Comments: Patient showed signs of hemorrhagic shock secondary to GI Bleed (tachycardic 130 -140) with hypotension (SBP in the 80's) despite IVF and packed blood cell resuscitation. Decision made to place emergent Triple lumen central line in the left femoral vein personally. All ports flushed and showed good drawback; phenylephrine started.
--- NOTE | 2017-02-28 06:17 | CP.CCUPN ---
CCU Subjective - Physician Review Events Since Last Encounter (Free Text): 02/28/17 06:10 Overnight, s/p IR angiogram with stenting of SMA and JOSH, patient developed tachycardia to 130's with SBP 150's, breathing normally and satting > 95%. Given Lopressor 5mg IVP x1, HR improved to 100's, BP, RR, and sats remained stable and appropriate. Approximately 2 hours later, patient again became tachycardic to 140's, with new agonal breathing, and desaturations on monitor. Patient then began to exhibit wet breathing sounds, so oral suctioning was performed, and was notable for suctioning bright red blood. Patient's blood pressure and O2 saturations acutely worsened, with SBP 90's/MAP < 65 and desats to 70's. He remained obtunded, unresponsive to verbal and physical stimuli, and became cool to palpation at extremities. House doctor was called, patient was placed on bag-valve mask to improve O2 sats, and then he was intubated for airway protection and adequate oxygenation. Patient had previously received 2 units of FFP ( 1 pre-procedure, 1 post-procedure) and was being transfused 2 units pRBCs at time of incident. Stat labs and EKG were obtained, and were notable for tachycardia, and acute drop in Hgb to 6.4. Decision was made to place central line for pressor support, but attempts to reach pt's on phone number in EMR chart were unsuccessful, so implied consent was established in the setting of critically needed intervention. Dobhoff tube was also placed , and set to suction, draining > 300cc bright red blood throughout episode. Patient was aggressively transfused under massive transfusion protocol, but continued to hemorrhage, with worsening hypotension requiring dual pressor support. GI made aware of patients condition, in attending to attending discussion between GI and ICU attending, GI stated that no acute intervention on their part was indicated, and recommended continued efforts to stabilize the patient. At time of note, patient is s/p 7 pRBCs, 3 FFP, 1 cryoprecipitate, pending 2 units platelets. Patient maxed out on phenylephrine and on 5mcg/kg/min of dopamine, being switched to Levophed and Vasopressin. Family contacted and informed of patient's condition, ongoing efforts to stabilize hemodynamically, and poor prognosis. Case discussed with ICU fellow at [facility] at length, as per ICU fellow no acute intervention from their standpoint, patient not stable for transfer, would recommend transitioning patient to comfort care. Bedside discussion with GI fellow and GI attending with ICU attending indicated that patient could be scoped at bedside to assess site of bleed, but likely diffuse injury not able to be treated endoscopically, would likely need surgical intervention at that point. GI discussed with family option of bedside EGD, explained risks, benefits, and alternatives; family wishes to proceed. They are aware the procedure is high risk, and wish to proceed anyway. CCU Objective - Vital Signs / Intake & Output Vital Signs (Last 4 hours): Vital Signs Temp Pulse Resp BP 02/28/17 03:12 97.3 F L 122 H 22 119/71 02/28/17 02:55 97.3 F L 127 H 24 119/71 02/28/17 02:13 98.3 F 122 H 23 150/84 Intake and Output (Last 8hrs): Intake & Output 02/27/17 02/27/17 02/28/17 14:59 22:59 06:59 Intake Total 1645 252.5 325 Output Total 0 Balance 1645 252.5 325 Intake: IV 1440 252.5 Protonix 240 sandostatin 1200 Oral 0 Blood Product 195 325 Apheresis Plts Acda Lr 195 Irr 2nd Unit [id number] Red Blood Cells Cpd As1 0 Lr Unit [id number] Red Blood Cells Cpd As1 325 Lr Unit [id number] Other 10 Apheresis Plts Acda Lr 10 Irr 2nd Unit [id number] Output: Urine 0 Condom 0 - Physical Exam Physical Exam Limitations: Positive for: Other (Non-responsive, obtunded, not following or comprehending any commands) Head: Positive for: Atraumatic Pupils: Positive for: PERRL, Sluggish. Negative for: Non-Reactive, Pinpoint Extroacular Muscles: Negative for: EOMI (unable to assess, minimal spontaneous eye movements, not following commands) Conjunctiva: Positive for: Icteric. Negative for: Normal Mouth: Positive for: Dry Pharnyx: Positive for: Normal Nose (External): Positive for: Atraumatic. Negative for: Abrasion, Contusion, Laceration Neck: Positive for: Normal Range of Motion Respiratory/Chest: Positive for: Respiratory Distress (agonal breathing and tachypnic to 40's), Accessory Muscle Use, Decreased Breath Sounds, Rales ( bilateral at bases ), Tachypneic. Negative for: Clear to Auscultation, Good Air Exchange Cardiovascular: Positive for: Regular Rate and Rhythm, Normal S1, S2, Peripheal Pulses Present (initially faintly present radials and dorsalis pedis, later extremities became cool with non-palpable pulses, only able to auscultate radials with bedside doppler), Tachycardic (130's-140's). Negative for: Murmurs Abdomen: Positive for: Guarding. Negative for: Tenderness, Distention, Normal Bowel Sounds (hyperactive bowel sounds in all quadrants), Peritoneal Signs Upper Extremity: Positive for: Other (lost palpable pulses in bilateral UE, only able to auscultate with bedside doppler, extremities became cold; increasing edema in bilateral hands). Negative for: Normal Inspection Lower Extremity: Positive for: Other (lost palpable pulses in bilateral UE, unable to auscultate with bedside doppler, extremities became cold; increasing edema in bilateral feet). Negative for: Normal Inspection Neurological: Negative for: GCS=15 (Score of 3 (E1 V1t M1)), CN II-XII Intact, Speech Normal (non-verbal, now intubated), Motor Func Grossly Intact, Normal Sensory Function Skin: Positive for: Dry, Cold (becoming cold at extremities, still warm at core region), Pale. Negative for: Warm, Rashes, Normal Color, Laceration, Abscess, Abrasion Psychiatric: Positive for: Other (initially unresponsive and non-verbal, now intubated and sedated) - Medications Active Medications: Active Medications Generic Name Dose Route Start Last Admin Trade Name Freq PRN Reason Stop Dose Admin Octreotide Acetate 1,250 mcg/ 252.5 mls @ 10.1 mls/hr 02/26/17 15:15 19:29 Sodium Chloride IV 50 mcg/hr .Q24H ED 10.1 mls/hr Protocol Administration 50 MCG/HR Pantoprazole Sodium 40 mg in 100 mls @ 20 mls/hr 02/26/17 16:45 02/28/17 01: 46 Protonix 40mg Ivpb IVPB 20 mls/hr .Q5H ED Administration Piperacillin Sod/Tazobactam Sod 100 mls @ 200 mls/hr 02/27/17 18:00 02/28/17 00:30 Zosyn 3.375 In Ns 100ml IVPB 03/08/17 18:01 200 mls/hr Q6 ED Administration Protocol Dextrose/Sodium Chloride 1,000 mls @ 125 mls/hr 02/27/17 19:15 02/27/17 19:12 Dextrose 5%/0.9% Ns 1000 Ml IV 125 mls/hr .Q8H ED Administration Sodium Chloride 1,000 mls @ 100 mls/hr 02/28/17 03:30 Sodium Chloride 0.9% IV .Q10H ED Phenylephrine HCl 40 mg/ 254 mls @ 38.1 mls/hr 02/28/17 04:15 Sodium Chloride IV .Q6H40M PRN TITRATE PER MD ORDER Protocol 100 MCG/MIN Dopamine HCl 800 mg/ Dextrose 270 mls @ 3.74 mls/hr 02/28/17 05:34 IV .Q24H PRN TITRATE PER MD ORDER Protocol 2 MCG/KG/MIN Lactulose 200 gm 02/27/17 17:15 02/27/17 23:31 Generlac [place] 200 gm Q6H ED Administration Lorazepam 2 mg 02/27/17 11:24 Ativan IVP Q6H PRN Withdrawal Protocol - Patient Studies Lab Studies: Microbiology Studies 02/26/17 16:22 MRSA Culture (Admit) - Final Nose MRSA NOT DETECTED Lab Studies 02/28/17 02/28/17 02/28/17 Range/Units 04:38 03:50 03:50 WBC (4.5-11.0) 10^3/ul RBC (3.5-6.1) 10^6/uL Hgb (14.0-18.0) g/dL Hct (42.0-52.0) % MCV (80.0-105.0) fl MCH (25.0-35.0) pg MCHC (31.0-37.0) g/dl RDW (11.5-14.5) % Plt Count (120.0-450.0) 10^3/uL MPV (7.0-11.0) fl Gran % (50.0-68.0) % Lymph % (Auto) (22.0-35.0) % Chaves % (Auto) (1.0-6.0) % Eos % (Auto) (1.5-5.0) % Baso % (Auto) (0.0-3.0) % Gran # (1.4-6.5) Lymph # (1.2-3.4) Chaves # (0.1-0.6) Eos # (0.0-0.7) Baso # (0.0-2.0) K/mm3 PT 23.4 H (9.9-11.8) Seconds INR 2.17 H (0.93-1.08) APTT (23.7-30.8) Seconds pCO2 44 (35-45) mm/Hg pO2 384.0 H (80-100) mm/Hg HCO3 19.7 L (21-28) mmol/L ABG pH 7.26 L (7.35-7.45) ABG Total CO2 21.1 L (22-28) mmol.L ABG O2 Saturation 100.9 H (95-98) % ABG Base Excess -6.8 L (-2.0-3.0) mmol/L ABG Potassium 3.8 (3.6-5.2) mmol/L Glucose 111 H (75-110) mg/dl Lactate 9.4 H* (0.7-2.1) mmol/L FiO2 100.0 % Sodium 139.0 (132-148) mmol/L Potassium (3.6-5.0) mmol/L Chloride 113.0 H (98-107) mmol/L Carbon Dioxide (21-33) mmol/L Anion Gap (10-20) BUN (7-21) mg/dL Creatinine (0.8-1.5) mg/dL Est GFR ( Amer) Est GFR (Non-Af Amer) POC Glucose (mg/dL) (65-110) mg/dL Random Glucose (70-110) mg/dL Lactic Acid (0.7-2.1) mmol/L Calcium (8.4-10.5) mg/dL Phosphorus (2.5-4.5) mg/dL Magnesium (1.7-2.2) mg/dL Total Bilirubin (0.2-1.3) mg/dL AST (17-59) U/L ALT (7-56) U/L Alkaline Phosphatase (38-126) U/L Ammonia 43 H (9-33) umol/L Troponin I ng/mL Total Protein (5.8-8.3) g/dL Albumin (3.0-4.8) g/dL Globulin gm/dL Albumin/Globulin Ratio (1.1-1.8) Amylase (35-125) U/L Arterial Blood Potassium 3.8 (3.6-5.2) mmol/L Hepatitis A IgM Ab (NEGATIVE) Hep Bs Antigen (NEGATIVE) Hep B Core IgM Ab (NEGATIVE) Hepatitis C Antibody (NEGATIVE) 02/28/17 02/28/17 02/28/17 Range/Units 03:50 03:50 00:15 WBC 6.9 (4.5-11.0) 10^3/ul RBC 1.81 L (3.5-6.1) 10^6/uL Hgb 6.3 L* (14.0-18.0) g/dL Hct 18.9 L* (42.0-52.0) % MCV 104.4 D (80.0-105.0) fl MCH 34.8 (25.0-35.0) pg MCHC 33.3 (31.0-37.0) g/dl RDW 19.0 H (11.5-14.5) % Plt Count 53 L (120.0-450.0) 10^3/uL MPV 9.9 (7.0-11.0) fl Gran % 61.4 (50.0-68.0) % Lymph % (Auto) 28.2 (22.0-35.0) % Chaves % (Auto) 10.0 H (1.0-6.0) % Eos % (Auto) 0.3 L (1.5-5.0) % Baso % (Auto) 0.1 (0.0-3.0) % Gran # 4.22 (1.4-6.5) Lymph # 1.9 (1.2-3.4) Chaves # 0.7 H (0.1-0.6) Eos # 0.0 (0.0-0.7) Baso # 0.01 (0.0-2.0) K/mm3 PT 19.4 H (9.9-11.8) Seconds INR 1.80 H (0.93-1.08) APTT (23.7-30.8) Seconds pCO2 (35-45) mm/Hg pO2 (80-100) mm/Hg HCO3 (21-28) mmol/L ABG pH (7.35-7.45) ABG Total CO2 (22-28) mmol.L ABG O2 Saturation (95-98) % ABG Base Excess (-2.0-3.0) mmol/L ABG Potassium (3.6-5.2) mmol/L Glucose (75-110) mg/dl Lactate (0.7-2.1) mmol/L FiO2 % Sodium 141 (132-148) mmol/L Potassium 3.6 (3.6-5.0) mmol/L Chloride 105 (98-107) mmol/L Carbon Dioxide 24 (21-33) mmol/L Anion Gap 16 (10-20) BUN 25 H (7-21) mg/dL Creatinine 0.9 (0.8-1.5) mg/dL Est GFR ( Amer) > 60 Est GFR (Non-Af Amer) > 60 POC Glucose (mg/dL) (65-110) mg/dL Random Glucose 128 H (70-110) mg/dL Lactic Acid (0.7-2.1) mmol/L Calcium 7.1 L (8.4-10.5) mg/dL Phosphorus 1.8 L (2.5-4.5) mg/dL Magnesium 1.9 (1.7-2.2) mg/dL Total Bilirubin 3.7 H (0.2-1.3) mg/dL AST 675 H D (17-59) U/L ALT 286 H (7-56) U/L Alkaline Phosphatase 59 (38-126) U/L Ammonia (9-33) umol/L Troponin I ng/mL Total Protein 4.5 L (5.8-8.3) g/dL Albumin 2.0 L (3.0-4.8) g/dL Globulin 2.5 gm/dL Albumin/Globulin Ratio 0.8 L (1.1-1.8) Amylase (35-125) U/L Arterial Blood Potassium (3.6-5.2) mmol/L Hepatitis A IgM Ab (NEGATIVE) Hep Bs Antigen (NEGATIVE) Hep B Core IgM Ab (NEGATIVE) Hepatitis C Antibody (NEGATIVE) 02/27/17 02/27/17 02/27/17 Range/Units 23:32 19:53 19:48 WBC 7.7 (4.5-11.0) 10^3/ul RBC 1.99 L (3.5-6.1) 10^6/uL Hgb 7.5 L (14.0-18.0) g/dL Hct 21.6 L (42.0-52.0) % MCV 108.5 H (80.0-105.0) fl MCH 37.7 H (25.0-35.0) pg MCHC 34.7 (31.0-37.0) g/dl RDW 15.2 H (11.5-14.5) % Plt Count 59 L (120.0-450.0) 10^3/uL MPV 9.7 (7.0-11.0) fl Gran % 72.5 H (50.0-68.0) % Lymph % (Auto) 19.4 L (22.0-35.0) % Chaves % (Auto) 7.7 H (1.0-6.0) % Eos % (Auto) 0.3 L (1.5-5.0) % Baso % (Auto) 0.1 (0.0-3.0) % Gran # 5.57 (1.4-6.5) Lymph # 1.5 (1.2-3.4) Chaves # 0.6 (0.1-0.6) Eos # 0.0 (0.0-0.7) Baso # 0.01 (0.0-2.0) K/mm3 PT (9.9-11.8) Seconds INR (0.93-1.08) APTT (23.7-30.8) Seconds pCO2 (35-45) mm/Hg pO2 (80-100) mm/Hg HCO3 (21-28) mmol/L ABG pH (7.35-7.45) ABG Total CO2 (22-28) mmol.L ABG O2 Saturation (95-98) % ABG Base Excess (-2.0-3.0) mmol/L ABG Potassium (3.6-5.2) mmol/L Glucose (75-110) mg/dl Lactate (0.7-2.1) mmol/L FiO2 % Sodium 138 (132-148) mmol/L Potassium 3.7 (3.6-5.0) mmol/L Chloride 100 (98-107) mmol/L Carbon Dioxide 35 H (21-33) mmol/L Anion Gap 7 L (10-20) BUN 26 H (7-21) mg/dL Creatinine 0.5 L (0.8-1.5) mg/dL Est GFR ( Amer) > 60 Est GFR (Non-Af Amer) > 60 POC Glucose (mg/dL) (65-110) mg/dL Random Glucose 133 H (70-110) mg/dL Lactic Acid 2.4 H (0.7-2.1) mmol/L Calcium 7.7 L (8.4-10.5) mg/dL Phosphorus (2.5-4.5) mg/dL Magnesium (1.7-2.2) mg/dL Total Bilirubin 4.2 H (0.2-1.3) mg/dL AST 1127 H (17-59) U/L ALT 392 H (7-56) U/L Alkaline Phosphatase 85 (38-126) U/L Ammonia (9-33) umol/L Troponin I ng/mL Total Protein 6.0 (5.8-8.3) g/dL Albumin 2.7 L (3.0-4.8) g/dL Globulin 3.3 gm/dL Albumin/Globulin Ratio 0.8 L (1.1-1.8) Amylase 52 (35-125) U/L Arterial Blood Potassium (3.6-5.2) mmol/L Hepatitis A IgM Ab (NEGATIVE) Hep Bs Antigen (NEGATIVE) Hep B Core IgM Ab (NEGATIVE) Hepatitis C Antibody (NEGATIVE) 02/27/17 02/27/17 02/27/17 Range/Units 18:15 11:35 06:39 WBC 6.6 D 8.4 (4.5-11.0) 10^3/ul RBC 1.92 L 2.21 L (3.5-6.1) 10^6/uL Hgb 7.2 L 8.2 L (14.0-18.0) g/dL Hct 20.9 L* 23.7 L (42.0-52.0) % MCV 108.9 H 107.2 H (80.0-105.0) fl MCH 37.5 H 37.1 H (25.0-35.0) pg MCHC 34.4 34.6 (31.0-37.0) g/dl RDW 15.3 H 15.2 H (11.5-14.5) % Plt Count 58 L 47 L* (120.0-450.0) 10^3/uL MPV 9.6 10.3 (7.0-11.0) fl Gran % 69.7 H 65.3 (50.0-68.0) % Lymph % (Auto) 21.1 L 24.0 (22.0-35.0) % Chaves % (Auto) 8.8 H 9.1 H (1.0-6.0) % Eos % (Auto) 0.2 L 0.2 L (1.5-5.0) % Baso % (Auto) 0.2 1.4 (0.0-3.0) % Gran # 4.60 5.49 (1.4-6.5) Lymph # 1.4 2.0 (1.2-3.4) Chaves # 0.6 0.8 H (0.1-0.6) Eos # 0.0 0.0 (0.0-0.7) Baso # 0.01 0.12 (0.0-2.0) K/mm3 PT (9.9-11.8) Seconds INR (0.93-1.08) APTT (23.7-30.8) Seconds pCO2 (35-45) mm/Hg pO2 (80-100) mm/Hg HCO3 (21-28) mmol/L ABG pH (7.35-7.45) ABG Total CO2 (22-28) mmol.L ABG O2 Saturation (95-98) % ABG Base Excess (-2.0-3.0) mmol/L ABG Potassium (3.6-5.2) mmol/L Glucose (75-110) mg/dl Lactate (0.7-2.1) mmol/L FiO2 % Sodium (132-148) mmol/L Potassium (3.6-5.0) mmol/L Chloride (98-107) mmol/L Carbon Dioxide (21-33) mmol/L Anion Gap (10-20) BUN (7-21) mg/dL Creatinine (0.8-1.5) mg/dL Est GFR ( Amer) Est GFR (Non-Af Amer) POC Glucose (mg/dL) 122 H (65-110) mg/dL Random Glucose (70-110) mg/dL Lactic Acid (0.7-2.1) mmol/L Calcium (8.4-10.5) mg/dL Phosphorus (2.5-4.5) mg/dL Magnesium (1.7-2.2) mg/dL Total Bilirubin (0.2-1.3) mg/dL AST (17-59) U/L ALT (7-56) U/L Alkaline Phosphatase (38-126) U/L Ammonia (9-33) umol/L Troponin I ng/mL Total Protein (5.8-8.3) g/dL Albumin (3.0-4.8) g/dL Globulin gm/dL Albumin/Globulin Ratio (1.1-1.8) Amylase (35-125) U/L Arterial Blood Potassium (3.6-5.2) mmol/L Hepatitis A IgM Ab (NEGATIVE) Hep Bs Antigen (NEGATIVE) Hep B Core IgM Ab (NEGATIVE) Hepatitis C Antibody (NEGATIVE) 02/27/17 02/27/17 02/27/17 Range/Units 06:30 06:30 05:50 WBC 9.9 (4.5-11.0) 10^3/ul RBC 2.01 L (3.5-6.1) 10^6/uL Hgb 7.4 L (14.0-18.0) g/dL Hct 21.9 L (42.0-52.0) % MCV 109.0 H (80.0-105.0) fl MCH 36.8 H (25.0-35.0) pg MCHC 33.8 (31.0-37.0) g/dl RDW 15.4 H (11.5-14.5) % Plt Count 47 L* (120.0-450.0) 10^3/uL MPV 10.2 (7.0-11.0) fl Gran % 54.8 (50.0-68.0) % Lymph % (Auto) 30.0 (22.0-35.0) % Chaves % (Auto) 14.7 H (1.0-6.0) % Eos % (Auto) 0.2 L (1.5-5.0) % Baso % (Auto) 0.3 (0.0-3.0) % Gran # 5.42 (1.4-6.5) Lymph # 3.0 (1.2-3.4) Chaves # 1.5 H (0.1-0.6) Eos # 0.0 (0.0-0.7) Baso # 0.03 (0.0-2.0) K/mm3 PT (9.9-11.8) Seconds INR (0.93-1.08) APTT (23.7-30.8) Seconds pCO2 (35-45) mm/Hg pO2 (80-100) mm/Hg HCO3 (21-28) mmol/L ABG pH (7.35-7.45) ABG Total CO2 (22-28) mmol.L ABG O2 Saturation (95-98) % ABG Base Excess (-2.0-3.0) mmol/L ABG Potassium (3.6-5.2) mmol/L Glucose (75-110) mg/dl Lactate (0.7-2.1) mmol/L FiO2 % Sodium (132-148) mmol/L Potassium (3.6-5.0) mmol/L Chloride (98-107) mmol/L Carbon Dioxide (21-33) mmol/L Anion Gap (10-20) BUN (7-21) mg/dL Creatinine (0.8-1.5) mg/dL Est GFR ( Amer) Est GFR (Non-Af Amer) POC Glucose (mg/dL) (65-110) mg/dL Random Glucose (70-110) mg/dL Lactic Acid (0.7-2.1) mmol/L Calcium (8.4-10.5) mg/dL Phosphorus (2.5-4.5) mg/dL Magnesium (1.7-2.2) mg/dL Total Bilirubin (0.2-1.3) mg/dL AST (17-59) U/L ALT (7-56) U/L Alkaline Phosphatase (38-126) U/L Ammonia (9-33) umol/L Troponin I ng/mL Total Protein (5.8-8.3) g/dL Albumin (3.0-4.8) g/dL Globulin gm/dL Albumin/Globulin Ratio (1.1-1.8) Amylase (35-125) U/L Arterial Blood Potassium (3.6-5.2) mmol/L Hepatitis A IgM Ab Negative (NEGATIVE) Hep Bs Antigen Negative Negative (NEGATIVE) Hep B Core IgM Ab Negative Negative (NEGATIVE) Hepatitis C Antibody Negative (NEGATIVE) 02/27/17 02/27/17 Range/Units 05:40 05:40 WBC (4.5-11.0) 10^3/ul RBC (3.5-6.1) 10^6/uL Hgb (14.0-18.0) g/dL Hct (42.0-52.0) % MCV (80.0-105.0) fl MCH (25.0-35.0) pg MCHC (31.0-37.0) g/dl RDW (11.5-14.5) % Plt Count (120.0-450.0) 10^3/uL MPV (7.0-11.0) fl Gran % (50.0-68.0) % Lymph % (Auto) (22.0-35.0) % Chaves % (Auto) (1.0-6.0) % Eos % (Auto) (1.5-5.0) % Baso % (Auto) (0.0-3.0) % Gran # (1.4-6.5) Lymph # (1.2-3.4) Chaves # (0.1-0.6) Eos # (0.0-0.7) Baso # (0.0-2.0) K/mm3 PT 21.6 H (9.9-11.8) Seconds INR 2.00 H (0.93-1.08) APTT 40.0 H (23.7-30.8) Seconds pCO2 (35-45) mm/Hg pO2 (80-100) mm/Hg HCO3 (21-28) mmol/L ABG pH (7.35-7.45) ABG Total CO2 (22-28) mmol.L ABG O2 Saturation (95-98) % ABG Base Excess (-2.0-3.0) mmol/L ABG Potassium (3.6-5.2) mmol/L Glucose (75-110) mg/dl Lactate (0.7-2.1) mmol/L FiO2 % Sodium 138 (132-148) mmol/L Potassium 3.9 (3.6-5.0) mmol/L Chloride 98 (98-107) mmol/L Carbon Dioxide 37 H (21-33) mmol/L Anion Gap 7 L (10-20) BUN 31 H (7-21) mg/dL Creatinine 0.8 (0.8-1.5) mg/dL Est GFR ( Amer) > 60 Est GFR (Non-Af Amer) > 60 POC Glucose (mg/dL) (65-110) mg/dL Random Glucose 127 H (70-110) mg/dL Lactic Acid (0.7-2.1) mmol/L Calcium 7.6 L (8.4-10.5) mg/dL Phosphorus 2.2 L (2.5-4.5) mg/dL Magnesium 2.0 (1.7-2.2) mg/dL Total Bilirubin 5.0 H (0.2-1.3) mg/dL AST 1312 H (17-59) U/L ALT 411 H (7-56) U/L Alkaline Phosphatase 75 (38-126) U/L Ammonia (9-33) umol/L Troponin I 0.21 H* D ng/mL Total Protein 5.7 L (5.8-8.3) g/dL Albumin 2.5 L (3.0-4.8) g/dL Globulin 3.2 gm/dL Albumin/Globulin Ratio 0.8 L (1.1-1.8) Amylase (35-125) U/L Arterial Blood Potassium (3.6-5.2) mmol/L Hepatitis A IgM Ab (NEGATIVE) Hep Bs Antigen (NEGATIVE) Hep B Core IgM Ab (NEGATIVE) Hepatitis C Antibody (NEGATIVE) Laboratory Results - last 24 hr 02/27/17 02/27/17 02/27/17 05:40 05:40 05:50 WBC 9.9 RBC 2.01 L Hgb 7.4 L Hct 21.9 L MCV 109.0 H MCH 36.8 H MCHC 33.8 RDW 15.4 H Plt Count 47 L* MPV 10.2 Gran % 54.8 Lymph % (Auto) 30.0 Chaves % (Auto) 14.7 H Eos % (Auto) 0.2 L Baso % (Auto) 0.3 Gran # 5.42 Lymph # 3.0 Chaves # 1.5 H Eos # 0.0 Baso # 0.03 PT 21.6 H INR 2.00 H APTT 40.0 H pCO2 pO2 HCO3 ABG pH ABG Total CO2 ABG O2 Saturation ABG Base Excess ABG Potassium Glucose Lactate FiO2 Sodium 138 Potassium 3.9 Chloride 98 Carbon Dioxide 37 H Anion Gap 7 L BUN 31 H Creatinine 0.8 Est GFR ( Amer) > 60 Est GFR (Non-Af Amer) > 60 POC Glucose (mg/dL) Random Glucose 127 H Lactic Acid Calcium 7.6 L Phosphorus 2.2 L Magnesium 2.0 Total Bilirubin 5.0 H AST 1312 H ALT 411 H Alkaline Phosphatase 75 Ammonia Troponin I 0.21 H* D Total Protein 5.7 L Albumin 2.5 L Globulin 3.2 Albumin/Globulin Ratio 0.8 L Amylase Arterial Blood Potassium Hepatitis A IgM Ab Hep Bs Antigen Hep B Core IgM Ab Hepatitis C Antibody 02/27/17 02/27/17 02/27/17 06:30 06:30 06:39 WBC RBC Hgb Hct MCV MCH MCHC RDW Plt Count MPV Gran % Lymph % (Auto) Chaves % (Auto) Eos % (Auto) Baso % (Auto) Gran # Lymph # Chaves # Eos # Baso # PT INR APTT pCO2 pO2 HCO3 ABG pH ABG Total CO2 ABG O2 Saturation ABG Base Excess ABG Potassium Glucose Lactate FiO2 Sodium Potassium Chloride Carbon Dioxide Anion Gap BUN Creatinine Est GFR ( Amer) Est GFR (Non-Af Amer) POC Glucose (mg/dL) 122 H Random Glucose Lactic Acid Calcium Phosphorus Magnesium Total Bilirubin AST ALT Alkaline Phosphatase Ammonia Troponin I Total Protein Albumin Globulin Albumin/Globulin Ratio Amylase Arterial Blood Potassium Hepatitis A IgM Ab Negative Hep Bs Antigen Negative Negative Hep B Core IgM Ab Negative Negative Hepatitis C Antibody Negative 02/27/17 02/27/17 02/27/17 11:35 18:15 19:48 WBC 8.4 6.6 D RBC 2.21 L 1.92 L Hgb 8.2 L 7.2 L Hct 23.7 L 20.9 L* MCV 107.2 H 108.9 H MCH 37.1 H 37.5 H MCHC 34.6 34.4 RDW 15.2 H 15.3 H Plt Count 47 L* 58 L MPV 10.3 9.6 Gran % 65.3 69.7 H Lymph % (Auto) 24.0 21.1 L [place]aves % (Auto) 9.1 H 8.8 H Eos % (Auto) 0.2 L 0.2 L Baso % (Auto) 1.4 0.2 Gran # 5.49 4.60 Lymph # 2.0 1.4 Chaves # 0.8 H 0.6 Eos # 0.0 0.0 Baso # 0.12 0.01 PT INR APTT pCO2 pO2 HCO3 ABG pH ABG Total CO2 ABG O2 Saturation ABG Base Excess ABG Potassium Glucose Lactate FiO2 Sodium 138 Potassium 3.7 Chloride 100 Carbon Dioxide 35 H Anion Gap 7 L BUN 26 H Creatinine 0.5 L Est GFR ( Amer) > 60 Est GFR (Non-Af Amer) > 60 POC Glucose (mg/dL) Random Glucose 133 H Lactic Acid Calcium 7.7 L Phosphorus Magnesium Total Bilirubin 4.2 H AST 1127 H ALT 392 H Alkaline Phosphatase 85 Ammonia Troponin I Total Protein 6.0 Albumin 2.7 L Globulin 3.3 Albumin/Globulin Ratio 0.8 L Amylase 52 Arterial Blood Potassium Hepatitis A IgM Ab Hep Bs Antigen Hep B Core IgM Ab Hepatitis C Antibody 02/27/17 02/27/17 02/28/17 19:53 23:32 00:15 WBC 7.7 RBC 1.99 L Hgb 7.5 L Hct 21.6 L MCV 108.5 H MCH 37.7 H MCHC 34.7 RDW 15.2 H Plt Count 59 L MPV 9.7 Gran % 72.5 H Lymph % (Auto) 19.4 L [place] % (Auto) 7.7 H Eos % (Auto) 0.3 L Baso % (Auto) 0.1 Gran # 5.57 Lymph # 1.5 Chaves # 0.6 Eos # 0.0 Baso # 0.01 PT 19.4 H INR 1.80 H APTT pCO2 pO2 HCO3 ABG pH ABG Total CO2 ABG O2 Saturation ABG Base Excess ABG Potassium Glucose Lactate FiO2 Sodium Potassium Chloride Carbon Dioxide Anion Gap BUN Creatinine Est GFR ( Amer) Est GFR (Non-Af Amer) POC Glucose (mg/dL) Random Glucose Lactic Acid 2.4 H Calcium Phosphorus Magnesium Total Bilirubin AST ALT Alkaline Phosphatase Ammonia Troponin I Total Protein Albumin Globulin Albumin/Globulin Ratio Amylase Arterial Blood Potassium Hepatitis A IgM Ab Hep Bs Antigen Hep B Core IgM Ab Hepatitis C Antibody 02/28/17 02/28/17 02/28/17 03:50 03:50 03:50 WBC 6.9 RBC 1.81 L Hgb 6.3 L* Hct 18.9 L* MCV 104.4 D MCH 34.8 MCHC 33.3 RDW 19.0 H Plt Count 53 L MPV 9.9 Gran % 61.4 Lymph % (Auto) 28.2 Chaves % (Auto) 10.0 H Eos % (Auto) 0.3 L Baso % (Auto) 0.1 Gran # 4.22 Lymph # 1.9 Chaves # 0.7 H Eos # 0.0 Baso # 0.01 PT 23.4 H INR 2.17 H APTT pCO2 pO2 HCO3 ABG pH ABG Total CO2 ABG O2 Saturation ABG Base Excess ABG Potassium Glucose Lactate FiO2 Sodium 141 Potassium 3.6 Chloride 105 Carbon Dioxide 24 Anion Gap 16 BUN 25 H Creatinine 0.9 Est GFR ( Amer) > 60 Est GFR (Non-Af Amer) > 60 POC Glucose (mg/dL) Random Glucose 128 H Lactic Acid Calcium 7.1 L Phosphorus 1.8 L Magnesium 1.9 Total Bilirubin 3.7 H AST 675 H D ALT 286 H Alkaline Phosphatase 59 Ammonia Troponin I Total Protein 4.5 L Albumin 2.0 L Globulin 2.5 Albumin/Globulin Ratio 0.8 L Amylase Arterial Blood Potassium Hepatitis A IgM Ab Hep Bs Antigen Hep B Core IgM Ab Hepatitis C Antibody 02/28/17 02/28/17 03:50 04:38 WBC RBC Hgb Hct MCV MCH MCHC RDW Plt Count MPV Gran % Lymph % (Auto) [place] % (Auto) Eos % (Auto) Baso % (Auto) Gran # Lymph # [place] # Eos # Baso # PT INR APTT pCO2 44 pO2 384.0 H HCO3 19.7 L ABG pH 7.26 L ABG Total CO2 21.1 L ABG O2 Saturation 100.9 H ABG Base Excess -6.8 L ABG Potassium 3.8 Glucose 111 H Lactate 9.4 H* FiO2 100.0 Sodium 139.0 Potassium Chloride 113.0 H Carbon Dioxide Anion Gap BUN Creatinine Est GFR ( Amer) Est GFR (Non-Af Amer) POC Glucose (mg/dL) Random Glucose Lactic Acid Calcium Phosphorus Magnesium Total Bilirubin AST ALT Alkaline Phosphatase Ammonia 43 H Troponin I Total Protein Albumin Globulin Albumin/Globulin Ratio Amylase Arterial Blood Potassium 3.8 Hepatitis A IgM Ab Hep Bs Antigen Hep B Core IgM Ab Hepatitis C Antibody Fingerstick Blood Sugar Results: 139 Review of Systems - Review of Systems Systems not reviewed;Unavailable: Altered Mental Status Critical Care Progress Note - Nutrition Nutrition: Nutrition Category Date Time Status NPO Diet [DIET] Diets 02/26/17 Lunch Ordered
[2017-02-28 06:29] LABS: BASO # 0.02 K/mm3 (0.0-2.0); BASO % 0.3 % (0.0-3.0); EOS % 0.3 % (1.5-5.0); GRAN # 3.79 (1.4-6.5); GRAN % 55.5 % (50.0-68.0); HEMATOCRIT 25.9 % (42.0-52.0); MEAN CELL VOLUME 95.2 fl (80.0-105.0); MEAN CORPUSCULAR HEMOGLOBIN 31.6 pg (25.0-35.0); MEAN CORPUSCULAR HGB CONC 33.2 g/dl (31.0-37.0); MEAN PLATELET VOLUME 10.5 fl (7.0-11.0); MONO % 14.9 % (1.0-6.0); RED CELL DISTRIBUTION WIDTH 16.8 % (11.5-14.5); WHITE BLOOD COUNT 6.8 10^3/ul (4.5-11.0)
[2017-02-28 07:04] LABS: PLATELET COUNT 27 10^3/uL (120.0-450.0)
[2017-02-28] MEDS ORDERED: NOREPINEPHRINE BIT/0.9 % NACL 4 MG/250 ML BAG IV ONE (07:15)
[2017-02-28] MEDS: Propofol 10 mg/ml 1,000 MG/100 ML VIAL IV PRN ×4 (07:25→17:51)
[2017-02-28 07:40] LABS: INR 2.06 (0.93-1.08); PARTIAL THROMBOPLASTIN TIME 65.8 Seconds (23.7-30.8)
[2017-02-28] MEDS: NOREPINEPHRINE BIT/0.9 % NACL 4 MG/250 ML BAG IV PRN ×8 (07:40→23:44)
[2017-02-28] MEDS: Vasopressin 20 UNITS in Dextrose 5% In Water 100 ML IV SCH (07:43)
[2017-02-28 07:55] LABS: FIBRINOGEN 72.8 mg/dL (187-400)
[2017-02-28] MEDS ORDERED: Fentanyl 1000mcg/100ml NS 1,000 MCG/100 ML BAG IV PRN (08:00)
[2017-02-28] MEDS ORDERED: Cisatracurium 2 mg/mL Inj 10ml IV ONE (08:01)
[2017-02-28] MEDS ORDERED: CISATRACURIUM BESYLATE IV PRN ×2 (08:19→08:21)
[2017-02-28] MEDS ORDERED: NS 0.9% IV PRN ×2 (08:19→08:21)
--- NOTE | 2017-02-28 08:22 | CARD ---
APPROVED REPORT EXAM: Two-dimensional and M-mode echocardiogram with Doppler and color Doppler. Other Information Quality : FairRhythm : INDICATION Chest Pain , GIB 2D DIMENSIONS Left Atrium (2D)4.1 (1.6-4.0cm)IVSd1.2 (0.7-1.1cm) LVDd5.2 (3.9-5.9cm)PWd1.2 (0.7-1.1cm) LVDs3.5 (2.5-4.0cm)FS (%) 32.0 % LVEF (%)60.0 (>50%) M-Mode DIMENSIONS Aortic Root3.20 (2.2-3.7cm)Aortic Cusp Exc.1.50 (1.5-2.0cm) Aortic Valve AoV Peak Zoocgkcd864.0cm/Elena Peak GR.22mmHg Mitral Valve E/A ratio0.0 TDI E/Lateral E'0.0E/Medial E'0.0 Tricuspid Valve TR Peak [id number] [id number] Peak Gr.30mmHg [id number] LEFT VENTRICLE The left ventricle is normal size. There is normal left ventricular wall thickness. The left ventricular function is normal. The left ventricular ejection fraction is within the normal range. There is normal LV segmental wall motion. RIGHT VENTRICLE The right ventricle is normal size. ATRIA The left atrium is mildly dilated. The right atrium size is normal. The interatrial septum is intact with no evidence for an atrial septal defect. AORTIC VALVE The aortic valve is mildly thickened. MITRAL VALVE The mitral valve is normal in structure. Mitral regurgitation is mild. TRICUSPID VALVE The tricuspid valve is normal in structure. There is mild tricuspid regurgitation. PULMONIC VALVE The pulmonic valve is not well visualized. GREAT VESSELS The aortic root is normal in size. PERICARDIAL EFFUSION There is no pericardial effusion. <Conclusion> The left ventricle is normal size. There is normal left ventricular wall thickness. The left ventricular function is normal. The aortic valve is mildly thickened. Aortic sclerosis. Mitral regurgitation is mild. There is mild tricuspid regurgitation.
[2017-02-28] MEDS: Midazolam 100 mg/100ml in NS 100 MG/100 ML SOL IV PRN ×2 (08:45→16:29)
--- NOTE | 2017-02-28 09:06 | RAD ---
HISTORY: intubate COMPARISON: 02/26/2017 FINDINGS: The endotracheal tube terminates 5 cm proximal to the sergey. LUNGS: The lungs are hyperinflated and there is peribronchial thickening with chronic changes in both lungs. There is no focal consolidation. PLEURA: No significant pleural effusion identified, no pneumothorax apparent. CARDIOVASCULAR: Normal. OSSEOUS STRUCTURES: No significant abnormalities. VISUALIZED UPPER ABDOMEN: Normal. OTHER FINDINGS: None. IMPRESSION: No active pulmonary disease.
--- NOTE | 2017-02-28 09:08 | RAD ---
HISTORY: assess Dobhoff placement COMPARISON: No prior. FINDINGS: The enteric tube terminates in the duodenum. VISUALIZED UPPER ABDOMEN: There is nonobstructive bowel gas pattern. OTHER FINDINGS: None. IMPRESSION: Enteric tube terminates in the duodenum.
[2017-02-28 09:50] LABS: VENOUS BLOOD GAS BASE EXCESS -11.7 mmol/L (0.0-2.0); VENOUS BLOOD PH 7.12 (7.32-7.43)
--- NOTE | 2017-02-28 10:08 | CP.PCM.PN ---
Subjective - Date & Time of Evaluation Date of Evaluation: 02/28/17 Time of Evaluation: 10:03 - Subjective Subjective: Surgery Progress Note for Dr. Stout HPI: Patient was seen and examined at bedside. Still obtunded. Dr. Whaley doing EGD at bedside for because of continued bleeding. Patient received 4 PRBC, 2 FFP , 2 Platelets and 1 unit of cryo overnight. Respiratory distress, hypoxia was intubated overnight. Dr. Paris consulted for possible gastric/colon resection. Objective - Vital Signs/Intake and Output Vital Signs (last 24 hours): Temp Pulse Resp BP Pulse Ox 98.2 F 132 H 40 H 162/66 H 100 02/28/17 08:00 02/28/17 08:10 02/28/17 08:00 02/28/17 08:06 02/28/17 08:10 Intake and Output: 02/28/17 02/28/17 06:59 18:59 Intake Total 325 263 Balance 325 263 - Medications Medications: Current Medications Fentanyl (Fentanyl) 100 mcg IVP Q2 PRN PRN Reason: Pain, severe (8-10) Last Admin: 02/28/17 08:45 Dose: 100 mcg Octreotide Acetate 1,250 mcg/ (Sodium Chloride) 252.5 mls @ 10.1 mls/hr IV .Q24H ED; 50 MCG/HR PRN Reason: Protocol Last Admin: 02/27/17 19:29 Dose: 50 mcg/hr, 10.1 mls/hr Pantoprazole Sodium (Protonix 40mg Ivpb) 40 mg in 100 mls @ 20 mls/hr IVPB .Q5H ED Last Admin: 02/28/17 07:44 Dose: 20 mls/hr Piperacillin Sod/Tazobactam Sod (Zosyn 3.375 In Ns 100ml) 100 mls @ 200 mls/hr IVPB Q6 ED PRN Reason: Protocol Stop: 03/08/17 18:01 Last Admin: 02/28/17 00:30 Dose: 200 mls/hr Dextrose/Sodium Chloride (Dextrose 5%/0.9% Ns 1000 Ml) 1,000 mls @ 125 mls/hr IV .Q8H ED Last Admin: 02/27/17 19:12 Dose: 125 mls/hr Sodium Chloride (Sodium Chloride 0.9%) 1,000 mls @ 100 mls/hr IV .Q10H ED Dopamine HCl 800 mg/ Dextrose 270 mls @ 3.74 mls/hr IV .Q24H PRN; Protocol; 2 MCG/KG/MIN PRN Reason: TITRATE PER MD ORDER Last Admin: 02/28/17 06:13 Dose: 2 mcg/kg/min, 3.74 mls/hr NOREPINEPHRINE BIT/0.9 % NACL (Levophed 4 Mg/ 250 Ml Ns Premixed) 4 mg in 250 mls @ 15 mls/hr IV .[id number] PRN; Protocol; 4 MCG/MIN PRN Reason: TITRATE PER MD ORDER Last Admin: 02/28/17 09:32 Dose: 15 mcg/min, 56.25 mls/hr Propofol (Diprivan) 1,000 mg in 100 mls @ 2.776 mls/hr IV .Q24H PRN; Protocol; 5 MCG/KG/MIN PRN Reason: TITRATE PER MD ORDER Last Titration: 02/28/17 07:59 Dose: 50 mcg/kg/min, 27.76 mls/hr Vasopressin 20 units/ Dextrose 101 mls @ 9.09 mls/hr IV .Q11H7M ED; 0.03 U/MIN PRN Reason: Protocol Last Admin: 02/28/17 07:43 Dose: 9.09 mls/hr Cisatracurium Besylate 100 mg/ (Sodium Chloride) 260 mls @ 43.3 mls/hr IV .Q6H1M PRN; Protocol; 3 MCG/KG/MIN PRN Reason: TITRATE PER MD ORDER Midazolam 100 mg/100ml in NS (Midazolam 100 Mg/100ml In Ns) 100 mg in 100 mls @ 1 mls/hr IV .Q24H PRN; Protocol; 1 MG/HR PRN Reason: Sedation Last Titration: 02/28/17 09:00 Dose: 10 mg/hr, 10 mls/hr Lactulose (Generlac) 200 gm MD Q6H ED Last Admin: 02/27/17 23:31 Dose: 200 gm Lorazepam (Ativan) 2 mg IVP Q6H PRN; Protocol PRN Reason: Withdrawal - Labs Labs: 02/28/17 06:00 02/28/17 03:50 PT 22.3 Seconds (9.9-11.8) H 02/28/17 06:41 INR 2.06 (0.93-1.08) H 02/28/17 06:41 APTT 65.8 Seconds (23.7-30.8) H 02/28/17 06:41 - Constitutional Appears: In Acute Distress - Head Exam Head Exam: ATRAUMATIC, NORMAL INSPECTION, NORMOCEPHALIC - ENT Exam ENT Exam: Mucous Membranes Dry - Respiratory Exam Respiratory Exam: Respiratory Distress - Cardiovascular Exam Cardiovascular Exam: Tachycardia - GI/Abdominal Exam GI & Abdominal Exam: Soft, Normal Bowel Sounds. 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 Girish Peraza PGY1
--- NOTE | 2017-02-28 10:10 | RAD ---
HISTORY: r/o perforation/free air COMPARISON: No prior. FINDINGS: BOWEL: There is lucency under the right hemidiaphragm. There is no evidence of lucency under the left hemidiaphragm. BONES: Normal. OTHER FINDINGS: Contrast material is identified in both kidneys from prior intravenous injection IMPRESSION: Please note evaluation of free air is limited due to supine projection. Allowing for this, the lucency under the right diaphragm could represent free air. PA radiograph/CT scan would be helpful for further evaluation.
--- NOTE | 2017-02-28 10:20 | CP.PCM.CON ---
<Troy Peraza - Last Filed: 02/28/17 10:15> History of Present Illness - History of Present Illness History of Present Illness: Surgery Consult Note for Dr. Paris We are consulted for gastric ischemia HPI: Patient is a 56 y/o alcoholic male who presented to the ER last night at approx. 1400 for multiple epsidoes of coffee ground emesis. He reports having 6 episodes the day before coming to the ER and 3-4 episodes yesterday. Patient was confused in the ER and the provided that majority of the history. Patient has remained obtunded throuought his hospital stay. He drinks 3-6 beers every other day. His daughter states he has been a heavy drinker as long as she can remember. Denies any prior episodes. GI was consulted to do an EGD today that showed two nonbleeding ulcers in the body and antrum of the stomach, severe diffuse portal hypertensive gastropathy in the fundus and body as well as localized purple discoloration in the gastric fundus and in the body concerning for ischemia. The patient has recieved 2 units of FFP. Patient went to IR for angiogram with angioplasty with stent placement in the SMA/JOSH. Patient transfused 2 FFP, 4 PRBC, 1 cryo [address] Stout states he is not a surgical candidate. EGD was repeated this morining for continued bleeding that showed the same gastric ischemia was clots but no active bleeding. PMH: HTN, Alcohol abuse PSH: denies FH: denies SH: Drinks 3-6 beers every other day for 30 years, smokes 1ppd for an unknown amount of years, admits to occasional marijuana abuse Meds: See MAR Allergies: None Review of Systems - Constitutional Constitutional: As Per HPI - EENT Eyes: As Per HPI Ears: As Per HPI Nose/Mouth/Throat: As Per HPI - Cardiovascular Cardiovascular: As Per HPI - Respiratory Respiratory: As Per HPI - Gastrointestinal Gastrointestinal: As Per HPI - Genitourinary Genitourinary: As Per HPI - Reproductive: Male Reproductive:Male: As Per HPI - Musculoskeletal Musculoskeletal: As Per HPI - Integumentary Integumentary: As Per HPI - Neurological Neurological: As Per HPI - Psychiatric Psychiatric: As Per HPI - Endocrine Endocrine: As Per HPI - Hematologic/Lymphatic Hematologic: As Per HPI Past Patient History - Infectious Disease Hx of Infectious Diseases: None - Past Social History Smoking Status: Heavy Smoker > 10 Cigarettes Daily - CARDIAC Hx Cardiac Disorders: Yes Hx Hypertension: Yes - PULMONARY Hx Emphysema: Yes - NEUROLOGICAL Hx Neurological Disorder: Yes (tremors) - HEENT Hx HEENT Problems: No - RENAL Hx Chronic Kidney Disease: No - ENDOCRINE/METABOLIC Hx Endocrine Disorders: No - HEMATOLOGICAL/ONCOLOGICAL Hx Blood Disorders: No - INTEGUMENTARY Hx Dermatological Problems: No - MUSCULOSKELETAL/RHEUMATOLOGICAL Hx Falls: No - GASTROINTESTINAL Hx Gastrointestinal Disorders: No Hx Bowel Surgery: No - GENITOURINARY/GYNECOLOGICAL Hx Genitourinary Disorders: No - PSYCHIATRIC Hx Substance Use: Yes (occasional marijuana) - SURGICAL HISTORY Hx Surgeries: Yes - ANESTHESIA Hx Anesthesia Reactions: No Meds Allergies/Adverse Reactions: Allergies Allergy/AdvReac Type Severity Reaction Status Date / Time No Known Allergies Allergy Verified 02/26/17 14:21 - Medications Medications: Current Medications Fentanyl (Fentanyl) 100 mcg IVP Q2 PRN PRN Reason: Pain, severe (8-10) Last Admin: 02/28/17 08:45 Dose: 100 mcg Octreotide Acetate 1,250 mcg/ (Sodium Chloride) 252.5 mls @ 10.1 mls/hr IV .Q24H ED; 50 MCG/HR PRN Reason: Protocol Last Admin: 02/27/17 19:29 Dose: 50 mcg/hr, 10.1 mls/hr Pantoprazole Sodium (Protonix 40mg Ivpb) 40 mg in 100 mls @ 20 mls/hr IVPB .Q5H ED Last Admin: 02/28/17 07:44 Dose: 20 mls/hr Piperacillin Sod/Tazobactam Sod (Zosyn 3.375 In Ns 100ml) 100 mls @ 200 mls/hr IVPB Q6 ED PRN Reason: Protocol Stop: 03/08/17 18:01 Last Admin: 02/28/17 00:30 Dose: 200 mls/hr Dextrose/Sodium Chloride (Dextrose 5%/0.9% Ns 1000 Ml) 1,000 mls @ 125 mls/hr IV .Q8H ED Last Admin: 02/27/17 19:12 Dose: 125 mls/hr Sodium Chloride (Sodium Chloride 0.9%) 1,000 mls @ 100 mls/hr IV .Q10H ED Dopamine HCl 800 mg/ Dextrose 270 mls @ 3.74 mls/hr IV .Q24H PRN; Protocol; 2 MCG/KG/MIN PRN Reason: TITRATE PER MD ORDER Last Admin: 02/28/17 06:13 Dose: 2 mcg/kg/min, 3.74 mls/hr NOREPINEPHRINE BIT/0.9 % NACL (Levophed 4 Mg/ 250 Ml Ns Premixed) 4 mg in 250 mls @ 15 mls/hr IV .[id number] PRN; Protocol; 4 MCG/MIN PRN Reason: TITRATE PER MD ORDER Last Admin: 02/28/17 09:32 Dose: 15 mcg/min, 56.25 mls/hr Propofol (Diprivan) 1,000 mg in 100 mls @ 2.776 mls/hr IV .Q24H PRN; Protocol; 5 MCG/KG/MIN PRN Reason: TITRATE PER MD ORDER Last Titration: 02/28/17 07:59 Dose: 50 mcg/kg/min, 27.76 mls/hr Vasopressin 20 units/ Dextrose 101 mls @ 9.09 mls/hr IV .Q11H7M ED; 0.03 U/MIN PRN Reason: Protocol Last Admin: 02/28/17 07:43 Dose: 9.09 mls/hr Cisatracurium Besylate 100 mg/ (Sodium Chloride) 260 mls @ 43.3 mls/hr IV .Q6H1M PRN; Protocol; 3 MCG/KG/MIN PRN Reason: TITRATE PER MD ORDER Midazolam 100 mg/100ml in NS (Midazolam 100 Mg/100ml In Ns) 100 mg in 100 mls @ 1 mls/hr IV .Q24H PRN; Protocol; 1 MG/HR PRN Reason: Sedation Last Titration: 02/28/17 09:00 Dose: 10 mg/hr, 10 mls/hr Lactulose (Generlac) 200 gm OK Q6H ED Last Admin: 02/27/17 23:31 Dose: 200 gm Lorazepam (Ativan) 2 mg IVP Q6H PRN; Protocol PRN Reason: Withdrawal Physical Exam - Constitutional Appears: In Acute Distress - Head Exam Head Exam: ATRAUMATIC - ENT Exam ENT Exam: Mucous Membranes Dry - Cardiovascular Exam Cardiovascular Exam: Tachycardia - GI/Abdominal Exam GI & Abdominal Exam: Normal Bowel Sounds, Soft. absent: Distended, Tenderness - Extremities Exam Extremities exam: Negative for: joint swelling, tenderness - Neurological Exam Neurological exam: Altered - Skin Skin Exam: Pallor Results - Vital Signs Recent Vital Signs: Last Vital Signs Temp 98.2 F 02/28/17 08:00 Pulse 132 H 02/28/17 08:10 Resp 40 H 02/28/17 08:00 BP 162/66 H 02/28/17 08:06 Pulse Ox 100 02/28/17 08:10 - Labs Result Diagrams: 02/28/17 06:00 02/28/17 03:50 Labs: Laboratory Results - last 24 hr 02/27/17 02/27/17 02/27/17 06:30 06:30 11:35 WBC 8.4 RBC 2.21 L Hgb 8.2 L Hct 23.7 L MCV 107.2 H MCH 37.1 H MCHC 34.6 RDW 15.2 H Plt Count 47 L* MPV 10.3 Gran % 65.3 Lymph % (Auto) 24.0 [place] % (Auto) 9.1 H Eos % (Auto) 0.2 L Baso % (Auto) 1.4 Gran # 5.49 Lymph # 2.0 [place]lee # 0.8 H Eos # 0.0 Baso # 0.12 PT INR APTT Fibrinogen pCO2 pO2 HCO3 ABG pH ABG Total CO2 ABG O2 Saturation ABG Base Excess ABG Potassium VBG pH VBG pCO2 VBG HCO3 VBG Total CO2 VBG O2 Sat (Calc) VBG Base Excess VBG Potassium Glucose Lactate FiO2 Sodium Potassium Chloride Carbon Dioxide Anion Gap BUN Creatinine Est GFR ( Amer) Est GFR (Non-Af Amer) Random Glucose Lactic Acid Calcium Phosphorus Magnesium Total Bilirubin AST ALT Alkaline Phosphatase Ammonia Troponin I Total Protein Albumin Globulin Albumin/Globulin Ratio Amylase Arterial Blood Potassium Venous Blood Potassium Hepatitis A IgM Ab Negative Hep Bs Antigen Negative Negative Hep B Core IgM Ab Negative Negative Hepatitis C Antibody Negative 02/27/17 02/27/17 02/27/17 18:15 19:48 19:53 WBC 6.6 D RBC 1.92 L Hgb 7.2 L Hct 20.9 L* MCV 108.9 H MCH 37.5 H MCHC 34.4 RDW 15.3 H Plt Count 58 L MPV 9.6 Gran % 69.7 H Lymph % (Auto) 21.1 L [place] % (Auto) 8.8 H Eos % (Auto) 0.2 L Baso % (Auto) 0.2 Gran # 4.60 Lymph # 1.4 [place]lee # 0.6 Eos # 0.0 Baso # 0.01 PT INR APTT Fibrinogen pCO2 pO2 HCO3 ABG pH ABG Total CO2 ABG O2 Saturation ABG Base Excess ABG Potassium VBG pH VBG pCO2 VBG HCO3 VBG Total CO2 VBG O2 Sat (Calc) VBG Base Excess VBG Potassium Glucose Lactate FiO2 Sodium 138 Potassium 3.7 Chloride 100 Carbon Dioxide 35 H Anion Gap 7 L BUN 26 H Creatinine 0.5 L Est GFR ( Amer) > 60 Est GFR (Non-Af Amer) > 60 Random Glucose 133 H Lactic Acid 2.4 H Calcium 7.7 L Phosphorus Magnesium Total Bilirubin 4.2 H AST 1127 H ALT 392 H Alkaline Phosphatase 85 Ammonia Troponin I Total Protein 6.0 Albumin 2.7 L Globulin 3.3 Albumin/Globulin Ratio 0.8 L Amylase 52 Arterial Blood Potassium Venous Blood Potassium Hepatitis A IgM Ab Hep Bs Antigen Hep B Core IgM Ab Hepatitis C Antibody 02/27/17 02/28/17 02/28/17 23:32 00:15 03:50 WBC 7.7 6.9 RBC 1.99 L 1.81 L Hgb 7.5 L 6.3 L* Hct 21.6 L 18.9 L* MCV 108.5 H 104.4 D MCH 37.7 H 34.8 MCHC 34.7 33.3 RDW 15.2 H 19.0 H Plt Count 59 L 53 L MPV 9.7 9.9 Gran % 72.5 H 61.4 Lymph % (Auto) 19.4 L 28.2 [place] % (Auto) 7.7 H 10.0 H Eos % (Auto) 0.3 L 0.3 L Baso % (Auto) 0.1 0.1 Gran # 5.57 4.22 Lymph # 1.5 1.9 [place] # 0.6 0.7 H Eos # 0.0 0.0 Baso # 0.01 0.01 PT 19.4 H INR 1.80 H APTT Fibrinogen pCO2 pO2 HCO3 ABG pH ABG Total CO2 ABG O2 Saturation ABG Base Excess ABG Potassium VBG pH VBG pCO2 VBG HCO3 VBG Total CO2 VBG O2 Sat (Calc) VBG Base Excess VBG Potassium Glucose Lactate FiO2 Sodium Potassium Chloride Carbon Dioxide Anion Gap BUN Creatinine Est GFR ( Amer) Est GFR (Non-Af Amer) Random Glucose Lactic Acid Calcium Phosphorus Magnesium Total Bilirubin AST ALT Alkaline Phosphatase Ammonia Troponin I Total Protein Albumin Globulin Albumin/Globulin Ratio Amylase Arterial Blood Potassium Venous Blood Potassium Hepatitis A IgM Ab Hep Bs Antigen Hep B Core IgM Ab Hepatitis C Antibody 02/28/17 02/28/17 02/28/17 03:50 03:50 03:50 WBC RBC Hgb Hct MCV MCH MCHC RDW Plt Count MPV Gran % Lymph % (Auto) [place] % (Auto) Eos % (Auto) Baso % (Auto) Gran # Lymph # [place] # Eos # Baso # PT 23.4 H INR 2.17 H APTT Fibrinogen pCO2 pO2 HCO3 ABG pH ABG Total CO2 ABG O2 Saturation ABG Base Excess ABG Potassium VBG pH VBG pCO2 VBG HCO3 VBG Total CO2 VBG O2 Sat (Calc) VBG Base Excess VBG Potassium Glucose Lactate FiO2 Sodium 141 Potassium 3.6 Chloride 105 Carbon Dioxide 24 Anion Gap 16 BUN 25 H Creatinine 0.9 Est GFR ( Amer) > 60 Est GFR (Non-Af Amer) > 60 Random Glucose 128 H Lactic Acid Calcium 7.1 L Phosphorus 1.8 L Magnesium 1.9 Total Bilirubin 3.7 H AST 675 H D ALT 286 H Alkaline Phosphatase 59 Ammonia 43 H Troponin I Total Protein 4.5 L Albumin 2.0 L Globulin 2.5 Albumin/Globulin Ratio 0.8 L Amylase Arterial Blood Potassium Venous Blood Potassium Hepatitis A IgM Ab Hep Bs Antigen Hep B Core IgM Ab Hepatitis C Antibody 02/28/17 02/28/17 02/28/17 03:50 04:38 06:00 WBC 6.8 RBC 2.72 L Hgb 8.6 L D Hct 25.9 L MCV 95.2 D MCH 31.6 MCHC 33.2 RDW 16.8 H Plt Count 27 L* MPV 10.5 Gran % 55.5 Lymph % (Auto) 29.0 [place] % (Auto) 14.9 H Eos % (Auto) 0.3 L Baso % (Auto) 0.3 Gran # 3.79 Lymph # 2.0 [place] # 1.0 H Eos # 0.0 Baso # 0.02 PT INR APTT Fibrinogen 81.3 L* pCO2 44 pO2 384.0 H HCO3 19.7 L ABG pH 7.26 L ABG Total CO2 21.1 L ABG O2 Saturation 100.9 H ABG Base Excess -6.8 L ABG Potassium 3.8 VBG pH VBG pCO2 VBG HCO3 VBG Total CO2 VBG O2 Sat (Calc) VBG Base Excess VBG Potassium Glucose 111 H Lactate 9.4 H* FiO2 100.0 Sodium 139.0 Potassium Chloride 113.0 H Carbon Dioxide Anion Gap BUN Creatinine Est GFR ( Amer) Est GFR (Non-Af Amer) Random Glucose Lactic Acid Calcium Phosphorus Magnesium Total Bilirubin AST ALT Alkaline Phosphatase Ammonia Troponin I Total Protein Albumin Globulin Albumin/Globulin Ratio Amylase Arterial Blood Potassium 3.8 Venous Blood Potassium Hepatitis A IgM Ab Hep Bs Antigen Hep B Core IgM Ab Hepatitis C Antibody 02/28/17 02/28/17 02/28/17 06:41 06:41 09:40 WBC RBC Hgb Hct MCV MCH MCHC RDW Plt Count MPV Gran % Lymph % (Auto) [place] % (Auto) Eos % (Auto) Baso % (Auto) Gran # Lymph # [place] # Eos # Baso # PT 22.3 H INR 2.06 H APTT 65.8 H Fibrinogen 72.8 L* pCO2 pO2 50 HCO3 ABG pH ABG Total CO2 ABG O2 Saturation ABG Base Excess ABG Potassium VBG pH 7.12 L* VBG pCO2 55.0 VBG HCO3 17.9 L VBG Total CO2 19.6 L VBG O2 Sat (Calc) 87.9 H VBG Base Excess -11.7 L VBG Potassium 4.3 Glucose 70 L Lactate 10.3 H* FiO2 21.0 Sodium 140.0 Potassium Chloride 109.0 H Carbon Dioxide Anion Gap BUN Creatinine Est GFR ( Amer) Est GFR (Non-Af Amer) Random Glucose Lactic Acid Calcium Phosphorus Magnesium Total Bilirubin AST ALT Alkaline Phosphatase Ammonia Troponin I 0.24 H* Total Protein Albumin Globulin Albumin/Globulin Ratio Amylase Arterial Blood Potassium Venous Blood Potassium 4.3 Hepatitis A IgM Ab Hep Bs Antigen Hep B Core IgM Ab Hepatitis C Antibody Assessment & Plan - Assessment and Plan (Free Text) Assessment: 56M with Gastric ischemia Plan: * Continue to stabilize patient with blood products and fluids as needed * Further reccs per Dr. Wellington Peraza PGY1 <Miriam Gavin - Last Filed: 02/28/17 14:04> Meds - Medications Medications: Current Medications Fentanyl (Fentanyl) 100 mcg IVP Q2 PRN PRN Reason: Pain, severe (8-10) Last Admin: 02/28/17 08:45 Dose: 100 mcg Octreotide Acetate 1,250 mcg/ (Sodium Chloride) 252.5 mls @ 10.1 mls/hr IV .Q24H ED; 50 MCG/HR PRN Reason: Protocol Last Admin: 02/27/17 19:29 Dose: 50 mcg/hr, 10.1 mls/hr Pantoprazole Sodium (Protonix 40mg Ivpb) 40 mg in 100 mls @ 20 mls/hr IVPB .Q5H ED Last Admin: 02/28/17 13:02 Dose: 20 mls/hr Piperacillin Sod/Tazobactam Sod (Zosyn 3.375 In Ns 100ml) 100 mls @ 200 mls/hr IVPB Q6 ED PRN Reason: Protocol Stop: 03/08/17 18:01 Last Admin: 02/28/17 11:55 Dose: 200 mls/hr Dextrose/Sodium Chloride (Dextrose 5%/0.9% Ns 1000 Ml) 1,000 mls @ 125 mls/hr IV .Q8H ED Last Admin: 02/27/17 19:12 Dose: 125 mls/hr Sodium Chloride (Sodium Chloride 0.9%) 1,000 mls @ 100 mls/hr IV .Q10H ED Dopamine HCl 800 mg/ Dextrose 270 mls @ 3.74 mls/hr IV .Q24H PRN; Protocol; 2 MCG/KG/MIN PRN Reason: TITRATE PER MD ORDER Last Admin: 02/28/17 06:13 Dose: 2 mcg/kg/min, 3.74 mls/hr NOREPINEPHRINE BIT/0.9 % NACL (Levophed 4 Mg/ 250 Ml Ns Premixed) 4 mg in 250 mls @ 15 mls/hr IV .[id number] PRN; Protocol; 4 MCG/MIN PRN Reason: TITRATE PER MD ORDER Last Admin: 02/28/17 13:58 Dose: 25 mcg/min, 93.75 mls/hr Propofol (Diprivan) 1,000 mg in 100 mls @ 2.776 mls/hr IV .Q24H PRN; Protocol; 5 MCG/KG/MIN PRN Reason: TITRATE PER MD ORDER Last Admin: 02/28/17 11:12 Dose: 50 mcg/kg/min, 27.76 mls/hr Vasopressin 20 units/ Dextrose 101 mls @ 9.09 mls/hr IV .Q11H7M ED; 0.03 U/MIN PRN Reason: Protocol Last Admin: 02/28/17 07:43 Dose: 9.09 mls/hr Cisatracurium Besylate 100 mg/ (Sodium Chloride) 260 mls @ 43.3 mls/hr IV .Q6H1M PRN; Protocol; 3 MCG/KG/MIN PRN Reason: TITRATE PER MD ORDER Midazolam 100 mg/100ml in NS (Midazolam 100 Mg/100ml In Ns) 100 mg in 100 mls @ 1 mls/hr IV .Q24H PRN; Protocol; 1 MG/HR PRN Reason: Sedation Last Titration: 02/28/17 09:00 Dose: 10 mg/hr, 10 mls/hr Lactulose (Generlac) 200 gm OK Q6H ED Last Admin: 02/27/17 23:31 Dose: 200 gm Lorazepam (Ativan) 2 mg IVP Q6H PRN; Protocol PRN Reason: Withdrawal Results - Vital Signs Recent Vital Signs: Last Vital Signs Temp 98.4 F 02/28/17 11:34 Pulse 106 H 02/28/17 12:00 Resp 35 H 02/28/17 11:34 BP 123/70 02/28/17 11:34 Pulse Ox 99 02/28/17 11:34 - Labs Result Diagrams: 02/28/17 11:15 02/28/17 03:50 Labs: Laboratory Results - last 24 hr 02/27/17 02/27/17 02/27/17 06:30 06:30 18:15 WBC 6.6 D RBC 1.92 L Hgb 7.2 L Hct 20.9 L* MCV 108.9 H MCH 37.5 H MCHC 34.4 RDW 15.3 H Plt Count 58 L MPV 9.6 Gran % 69.7 H Lymph % (Auto) 21.1 L [place] % (Auto) 8.8 H Eos % (Auto) 0.2 L Baso % (Auto) 0.2 Gran # 4.60 Lymph # 1.4 [place] # 0.6 Eos # 0.0 Baso # 0.01 PT INR APTT Fibrinogen pCO2 pO2 HCO3 ABG pH ABG Total CO2 ABG O2 Saturation ABG Base Excess ABG Potassium VBG pH VBG pCO2 VBG HCO3 VBG Total CO2 VBG O2 Sat (Calc) VBG Base Excess VBG Potassium Glucose Lactate Mechanical Rate FiO2 Tidal Volume PEEP Sodium Potassium Chloride Carbon Dioxide Anion Gap BUN Creatinine Est GFR ( Amer) Est GFR (Non-Af Amer) Random Glucose Lactic Acid Calcium Phosphorus Magnesium Total Bilirubin AST ALT Alkaline Phosphatase Ammonia Troponin I Total Protein Albumin Globulin Albumin/Globulin Ratio Amylase Arterial Blood Potassium Venous Blood Potassium Hepatitis A IgM Ab Negative Hep Bs Antigen Negative Negative Hep B Core IgM Ab Negative Negative Hepatitis C Antibody Negative 02/27/17 02/27/17 02/27/17 19:48 19:53 23:32 WBC 7.7 RBC 1.99 L Hgb 7.5 L Hct 21.6 L MCV 108.5 H MCH 37.7 H MCHC 34.7 RDW 15.2 H Plt Count 59 L MPV 9.7 Gran % 72.5 H Lymph % (Auto) 19.4 L [place] % (Auto) 7.7 H Eos % (Auto) 0.3 L Baso % (Auto) 0.1 Gran # 5.57 Lymph # 1.5 [place] # 0.6 Eos # 0.0 Baso # 0.01 PT INR APTT Fibrinogen pCO2 pO2 HCO3 ABG pH ABG Total CO2 ABG O2 Saturation ABG Base Excess ABG Potassium VBG pH VBG pCO2 VBG HCO3 VBG Total CO2 VBG O2 Sat (Calc) VBG Base Excess VBG Potassium Glucose Lactate Mechanical Rate FiO2 Tidal Volume PEEP Sodium 138 Potassium 3.7 Chloride 100 Carbon Dioxide 35 H Anion Gap 7 L BUN 26 H Creatinine 0.5 L Est GFR ( Amer) > 60 Est GFR (Non-Af Amer) > 60 Random Glucose 133 H Lactic Acid 2.4 H Calcium 7.7 L Phosphorus Magnesium Total Bilirubin 4.2 H AST 1127 H ALT 392 H Alkaline Phosphatase 85 Ammonia Troponin I Total Protein 6.0 Albumin 2.7 L Globulin 3.3 Albumin/Globulin Ratio 0.8 L Amylase 52 Arterial Blood Potassium Venous Blood Potassium Hepatitis A IgM Ab Hep Bs Antigen Hep B Core IgM Ab Hepatitis C Antibody 02/28/17 02/28/17 02/28/17 00:15 03:50 03:50 WBC 6.9 RBC 1.81 L Hgb 6.3 L* Hct 18.9 L* MCV 104.4 D MCH 34.8 MCHC 33.3 RDW 19.0 H Plt Count 53 L MPV 9.9 Gran % 61.4 Lymph % (Auto) 28.2 [place] % (Auto) 10.0 H Eos % (Auto) 0.3 L Baso % (Auto) 0.1 Gran # 4.22 Lymph # 1.9 [place] # 0.7 H Eos # 0.0 Baso # 0.01 PT 19.4 H INR 1.80 H APTT Fibrinogen pCO2 pO2 HCO3 ABG pH ABG Total CO2 ABG O2 Saturation ABG Base Excess ABG Potassium VBG pH VBG pCO2 VBG HCO3 VBG Total CO2 VBG O2 Sat (Calc) VBG Base Excess VBG Potassium Glucose Lactate Mechanical Rate FiO2 Tidal Volume PEEP Sodium 141 Potassium 3.6 Chloride 105 Carbon Dioxide 24 Anion Gap 16 BUN 25 H Creatinine 0.9 Est GFR ( Amer) > 60 Est GFR (Non-Af Amer) > 60 Random Glucose 128 H Lactic Acid Calcium 7.1 L Phosphorus 1.8 L Magnesium 1.9 Total Bilirubin 3.7 H AST 675 H D ALT 286 H Alkaline Phosphatase 59 Ammonia Troponin I Total Protein 4.5 L Albumin 2.0 L Globulin 2.5 Albumin/Globulin Ratio 0.8 L Amylase Arterial Blood Potassium Venous Blood Potassium Hepatitis A IgM Ab Hep Bs Antigen Hep B Core IgM Ab Hepatitis C Antibody 02/28/17 02/28/17 02/28/17 03:50 03:50 03:50 WBC RBC Hgb Hct MCV MCH MCHC RDW Plt Count MPV Gran % Lymph % (Auto) [place] % (Auto) Eos % (Auto) Baso % (Auto) Gran # Lymph # [place] # Eos # Baso # PT 23.4 H INR 2.17 H APTT Fibrinogen 81.3 L* pCO2 pO2 HCO3 ABG pH ABG Total CO2 ABG O2 Saturation ABG Base Excess ABG Potassium VBG pH VBG pCO2 VBG HCO3 VBG Total CO2 VBG O2 Sat (Calc) VBG Base Excess VBG Potassium Glucose Lactate Mechanical Rate FiO2 Tidal Volume PEEP Sodium Potassium Chloride Carbon Dioxide Anion Gap BUN Creatinine Est GFR ( Amer) Est GFR (Non-Af Amer) Random Glucose Lactic Acid Calcium Phosphorus Magnesium Total Bilirubin AST ALT Alkaline Phosphatase Ammonia 43 H Troponin I Total Protein Albumin Globulin Albumin/Globulin Ratio Amylase Arterial Blood Potassium Venous Blood Potassium Hepatitis A IgM Ab Hep Bs Antigen Hep B Core IgM Ab Hepatitis C Antibody 02/28/17 02/28/17 02/28/17 04:38 06:00 06:41 WBC 6.8 RBC 2.72 L Hgb 8.6 L D Hct 25.9 L MCV 95.2 D MCH 31.6 MCHC 33.2 RDW 16.8 H Plt Count 27 L* MPV 10.5 Gran % 55.5 Lymph % (Auto) 29.0 [place] % (Auto) 14.9 H Eos % (Auto) 0.3 L Baso % (Auto) 0.3 Gran # 3.79 Lymph # 2.0 [place] # 1.0 H Eos # 0.0 Baso # 0.02 PT INR APTT Fibrinogen pCO2 44 pO2 384.0 H HCO3 19.7 L ABG pH 7.26 L ABG Total CO2 21.1 L ABG O2 Saturation 100.9 H ABG Base Excess -6.8 L ABG Potassium 3.8 VBG pH VBG pCO2 VBG HCO3 VBG Total CO2 VBG O2 Sat (Calc) VBG Base Excess VBG Potassium Glucose 111 H Lactate 9.4 H* Mechanical Rate FiO2 100.0 Tidal Volume PEEP Sodium 139.0 Potassium Chloride 113.0 H Carbon Dioxide Anion Gap BUN Creatinine Est GFR ( Amer) Est GFR (Non-Af Amer) Random Glucose Lactic Acid Calcium Phosphorus Magnesium Total Bilirubin AST ALT Alkaline Phosphatase Ammonia Troponin I 0.24 H* Total Protein Albumin Globulin Albumin/Globulin Ratio Amylase Arterial Blood Potassium 3.8 Venous Blood Potassium Hepatitis A IgM Ab Hep Bs Antigen Hep B Core IgM Ab Hepatitis C Antibody 02/28/17 02/28/17 02/28/17 06:41 09:40 10:33 WBC RBC Hgb Hct MCV MCH MCHC RDW Plt Count MPV Gran % Lymph % (Auto) [place] % (Auto) Eos % (Auto) Baso % (Auto) Gran # Lymph # [place] # Eos # Baso # PT 22.3 H INR 2.06 H APTT 65.8 H Fibrinogen 72.8 L* pCO2 46 H pO2 50 55.0 L HCO3 15.3 L ABG pH 7.13 L* ABG Total CO2 16.7 L ABG O2 Saturation 91.1 L ABG Base Excess -13.6 L ABG Potassium 4.1 VBG pH 7.12 L* VBG pCO2 55.0 VBG HCO3 17.9 L VBG Total CO2 19.6 L VBG O2 Sat (Calc) 87.9 H VBG Base Excess -11.7 L VBG Potassium 4.3 Glucose 70 L 67 L Lactate 10.3 H* 9.8 H* Mechanical Rate 30 FiO2 21.0 60.0 Tidal Volume 420 PEEP 5 Sodium 140.0 141.0 Potassium Chloride 109.0 H 112.0 H Carbon Dioxide Anion Gap BUN Creatinine Est GFR ( Amer) Est GFR (Non-Af Amer) Random Glucose Lactic Acid Calcium Phosphorus Magnesium Total Bilirubin AST ALT Alkaline Phosphatase Ammonia Troponin I Total Protein Albumin Globulin Albumin/Globulin Ratio Amylase Arterial Blood Potassium 4.1 Venous Blood Potassium 4.3 Hepatitis A IgM Ab Hep Bs Antigen Hep B Core IgM Ab Hepatitis C Antibody 02/28/17 02/28/17 11:15 11:15 WBC 10.2 D RBC 3.04 L Hgb 9.8 L Hct 28.4 L MCV 93.4 MCH 32.2 MCHC 34.5 RDW 16.6 H Plt Count 82 L MPV 8.9 Gran % 57.5 Lymph % (Auto) 28.0 [place] % (Auto) 13.7 H Eos % (Auto) 0.2 L Baso % (Auto) 0.6 Gran # 5.87 Lymph # 2.9 [place] # 1.4 H Eos # 0.0 Baso # 0.06 PT 19.5 H INR 1.81 H APTT 59.8 H Fibrinogen 92.7 L* pCO2 pO2 HCO3 ABG pH ABG Total CO2 ABG O2 Saturation ABG Base Excess ABG Potassium VBG pH VBG pCO2 VBG HCO3 VBG Total CO2 VBG O2 Sat (Calc) VBG Base Excess VBG Potassium Glucose Lactate Mechanical Rate FiO2 Tidal Volume PEEP Sodium Potassium Chloride Carbon Dioxide Anion Gap BUN Creatinine Est GFR ( Amer) Est GFR (Non-Af Amer) Random Glucose Lactic Acid Calcium Phosphorus Magnesium Total Bilirubin AST ALT Alkaline Phosphatase Ammonia Troponin I Total Protein Albumin Globulin Albumin/Globulin Ratio Amylase Arterial Blood Potassium Venous Blood Potassium Hepatitis A IgM Ab Hep Bs Antigen Hep B Core IgM Ab Hepatitis C Antibody Assessment & Plan - Assessment and Plan (Free Text) Plan: Will get CT w PO contrast when pt is stable.
--- NOTE | 2017-02-28 10:25 | CP.CCUPN ---
CCU Subjective - Physician Review Events Since Last Encounter (Free Text): 02/28/17 10:16 Overnight noemí had a massive upper GI bleed. Pt was noted to have hypotention and hypoxia in the setting of AMS. The patient was intubated and sedated and started on massive transfusion protocol. The patient was seen by GI this morning and underwent UGI endoscopy. Found to have a large amount of blood but no active bleeding site. Clips were placed at the ulcer site. Continues to be supported on vasopressors and massive transfusion protocol. CCU Objective - Vital Signs / Intake & Output Vital Signs (Last 4 hours): Vital Signs Temp Pulse Resp BP Pulse Ox 02/28/17 08:10 132 H 100 02/28/17 08:06 133 H 162/66 H 99 02/28/17 08:04 134 H 184/71 H 100 02/28/17 08:01 137 H 02/28/17 08:00 98.2 F 137 H 40 H 99 02/28/17 07:50 128 H 100 02/28/17 07:45 138 H 114/64 99 02/28/17 07:43 84/66 L 02/28/17 07:40 136 H 99 02/28/17 07:30 131 H 84/66 L 97 02/28/17 07:29 131 H 02/28/17 07:28 131 H 02/28/17 07:27 132 H 02/28/17 07:26 132 H 02/28/17 07:25 132 H 02/28/17 07:24 132 H 02/28/17 07:23 132 H 02/28/17 07:22 134 H 02/28/17 07:21 134 H 91/24 L 02/28/17 07:20 135 H 02/28/17 07:19 135 H 02/28/17 07:18 131 H 02/28/17 07:17 130 H 67/25 L 87 L 02/28/17 07:15 131 H 75/42 L 89 L 02/28/17 07:12 133 H 77/51 L 91 L 02/28/17 07:10 139 H 93 L 02/28/17 07:00 139 H 93/55 L 96 02/28/17 06:58 138 H 108/53 L 96 02/28/17 06:57 137 H 85/62 L 100 02/28/17 06:54 140 H 100/60 98 02/28/17 06:52 139 H 145/54 L 100 02/28/17 06:50 140 H 123/89 99 02/28/17 06:48 139 H 123/75 99 02/28/17 06:46 139 H 131/68 98 02/28/17 06:43 137 H 135/69 100 02/28/17 06:40 135 H 100 Intake and Output (Last 8hrs): Intake & Output 02/27/17 02/28/17 02/28/17 22:59 06:59 14:59 Intake Total 252.5 325 263 Balance 252.5 325 263 Intake: IV 252.5 263 Blood Product 325 Red Blood Cells Cpd As1 0 Lr Unit [id number] Red Blood Cells Cpd As1 325 Lr Unit [id number] - Physical Exam Physical Exam Limitations: Positive for: Altered Mental Status Head: Positive for: Atraumatic Pupils: Positive for: PERRL, Sluggish. Negative for: Non-Reactive, Pinpoint Extroacular Muscles: Negative for: EOMI (unable to assess, minimal spontaneous eye movements, not following commands) Conjunctiva: Positive for: Icteric. Negative for: Normal Mouth: Positive for: Dry, Other (ett) Pharnyx: Positive for: Normal, ERYTHEMA Nose (External): Negative for: Abrasion, Contusion, Laceration Neck: Positive for: Normal Range of Motion Respiratory/Chest: Positive for: Respiratory Distress (agonal breathing and tachypnic to 40's), Accessory Muscle Use, Decreased Breath Sounds, Rales ( bilateral at bases ), Tachypneic. Negative for: Clear to Auscultation, Good Air Exchange Cardiovascular: Positive for: Regular Rate and Rhythm, Normal S1, S2, Peripheal Pulses Present (initially faintly present radials and dorsalis pedis, later extremities became cool with non-palpable pulses, only able to auscultate radials with bedside doppler), Tachycardic (130's-140's). Negative for: Murmurs Abdomen: Positive for: Guarding. Negative for: Tenderness, Distention, Normal Bowel Sounds (hyperactive bowel sounds in all quadrants), Peritoneal Signs Upper Extremity: Negative for: Normal Inspection Lower Extremity: Positive for: Other (lost palpable pulses in bilateral UE, unable to auscultate with bedside doppler, extremities became cold; increasing edema in bilateral feet). Negative for: Normal Inspection Neurological: Positive for: Other (intubated and sedated). Negative for: GCS= 15 (Score of 3 (E1 V1t M1)), CN II-XII Intact, Speech Normal (non-verbal, now intubated), Motor Func Grossly Intact, Normal Sensory Function Skin: Positive for: Dry, Cold (becoming cold at extremities, still warm at core region), Pale. Negative for: Warm, Rashes, Normal Color, Laceration, Abscess, Abrasion Psychiatric: Positive for: Other (initially unresponsive and non-verbal, now intubated and sedated) - Medications Active Medications: Active Medications Generic Name Dose Route Start Last Admin Trade Name Freq PRN Reason Stop Dose Admin Fentanyl 100 mcg 02/28/17 08:20 02/28/17 08:45 Fentanyl IVP 100 mcg Q2 PRN Administration Pain, severe (8-10) Octreotide Acetate 1,250 mcg/ 252.5 mls @ 10.1 mls/hr 02/26/17 15:15 19:29 Sodium Chloride IV 50 mcg/hr .Q24H ED 10.1 mls/hr Protocol Administration 50 MCG/HR Pantoprazole Sodium 40 mg in 100 mls @ 20 mls/hr 02/26/17 16:45 02/28/17 07: 44 Protonix 40mg Ivpb IVPB 20 mls/hr .Q5H ED Administration Piperacillin Sod/Tazobactam Sod 100 mls @ 200 mls/hr 02/27/17 18:00 02/28/17 00:30 Zosyn 3.375 In Ns 100ml IVPB 03/08/17 18:01 200 mls/hr Q6 ED Administration Protocol Dextrose/Sodium Chloride 1,000 mls @ 125 mls/hr 02/27/17 19:15 02/27/17 19:12 Dextrose 5%/0.9% Ns 1000 Ml IV 125 mls/hr .Q8H ED Administration Sodium Chloride 1,000 mls @ 100 mls/hr 02/28/17 03:30 Sodium Chloride 0.9% IV .Q10H ED Dopamine HCl 800 mg/ Dextrose 270 mls @ 3.74 mls/hr 02/28/17 05:34 02/28/17 06:13 IV 2 mcg/kg/min .Q24H PRN 3.74 mls/hr TITRATE PER MD ORDER Administration Protocol 2 MCG/KG/MIN NOREPINEPHRINE BIT/0.9 % NACL 4 mg in 250 mls @ 15 mls/hr 02/28/17 07:14 10/10 09:32 Levophed 4 Mg/ 250 Ml Ns Premixed IV 15 mcg/min .[id number] PRN 56.25 mls/hr TITRATE PER MD ORDER Administration Protocol 4 MCG/MIN Propofol 1,000 mg in 100 mls @ 2.776 mls/hr 02/28/17 07:23 02/28/17 07:59 Diprivan IV 50 mcg/kg/min .Q24H PRN 27.76 mls/hr TITRATE PER MD ORDER Titration Protocol 5 MCG/KG/MIN Vasopressin 20 units/ Dextrose 101 mls @ 9.09 mls/hr 02/28/17 07:30 02/28/17 07:43 IV 9.09 mls/hr .Q11H7M ED Administration Protocol 0.03 U/MIN Cisatracurium Besylate 100 mg/ 260 mls @ 43.3 mls/hr 02/28/17 08:21 Sodium Chloride IV .Q6H1M PRN TITRATE PER MD ORDER Protocol 3 MCG/KG/MIN Midazolam 100 mg/100ml in NS 100 mg in 100 mls @ 1 mls/hr 02/28/17 08:16 10/10 09:00 Midazolam 100 Mg/100ml In Ns IV 10 mg/hr .Q24H PRN 10 mls/hr Sedation Titration Protocol 1 MG/HR Lactulose 200 gm 02/27/17 17:15 02/27/17 23:31 Generlac DE 200 gm Q6H ED Administration Lorazepam 2 mg 02/27/17 11:24 Ativan IVP Q6H PRN Withdrawal Protocol - Patient Studies Lab Studies: Microbiology Studies 02/26/17 16:22 MRSA Culture (Admit) - Final Nose MRSA NOT DETECTED Lab Studies 02/28/17 02/28/17 02/28/17 Range/Units 09:40 06:41 06:41 WBC (4.5-11.0) 10^3/ul RBC (3.5-6.1) 10^6/uL Hgb (14.0-18.0) g/dL Hct (42.0-52.0) % MCV (80.0-105.0) fl MCH (25.0-35.0) pg MCHC (31.0-37.0) g/dl RDW (11.5-14.5) % Plt Count (120.0-450.0) 10^3/uL MPV (7.0-11.0) fl Gran % (50.0-68.0) % Lymph % (Auto) (22.0-35.0) % Wilson % (Auto) (1.0-6.0) % Eos % (Auto) (1.5-5.0) % Baso % (Auto) (0.0-3.0) % Gran # (1.4-6.5) Lymph # (1.2-3.4) Wilson # (0.1-0.6) Eos # (0.0-0.7) Baso # (0.0-2.0) K/mm3 PT 22.3 H (9.9-11.8) Seconds INR 2.06 H (0.93-1.08) APTT 65.8 H (23.7-30.8) Seconds Fibrinogen 72.8 L* (187-400) mg/dL pCO2 (35-45) mm/Hg pO2 50 (80-100) mm/Hg HCO3 (21-28) mmol/L ABG pH (7.35-7.45) ABG Total CO2 (22-28) mmol.L ABG O2 Saturation (95-98) % ABG Base Excess (-2.0-3.0) mmol/L ABG Potassium (3.6-5.2) mmol/L VBG pH 7.12 L* (7.32-7.43) VBG pCO2 55.0 (40-60) VBG HCO3 17.9 L (21-28) mmol/l VBG Total CO2 19.6 L (22-28) mmol.L VBG O2 Sat (Calc) 87.9 H (40-65) % VBG Base Excess -11.7 L (0.0-2.0) mmol/L VBG Potassium 4.3 (3.6-5.2) mmol/L Glucose 70 L (75-110) mg/dl Lactate 10.3 H* (0.7-2.1) mmol/L FiO2 21.0 % Sodium 140.0 (132-148) mmol/L Potassium (3.6-5.0) mmol/L Chloride 109.0 H (95-110) mmol/L Carbon Dioxide (21-33) mmol/L Anion Gap (10-20) BUN (7-21) mg/dL Creatinine (0.8-1.5) mg/dL Est GFR ( Amer) Est GFR (Non-Af Amer) Random Glucose (70-110) mg/dL Lactic Acid (0.7-2.1) mmol/L Calcium (8.4-10.5) mg/dL Phosphorus (2.5-4.5) mg/dL Magnesium (1.7-2.2) mg/dL Total Bilirubin (0.2-1.3) mg/dL AST (17-59) U/L ALT (7-56) U/L Alkaline Phosphatase (38-126) U/L Ammonia (9-33) umol/L Troponin I 0.24 H* ng/mL Total Protein (5.8-8.3) g/dL Albumin (3.0-4.8) g/dL Globulin gm/dL Albumin/Globulin Ratio (1.1-1.8) Amylase (35-125) U/L Arterial Blood Potassium (3.6-5.2) mmol/L Venous Blood Potassium 4.3 (3.6-5.2) mmol/L Hepatitis A IgM Ab (NEGATIVE) Hep Bs Antigen (NEGATIVE) Hep B Core IgM Ab (NEGATIVE) Hepatitis C Antibody (NEGATIVE) 02/28/17 02/28/17 02/28/17 Range/Units 06:00 04:38 03:50 WBC 6.8 (4.5-11.0) 10^3/ul RBC 2.72 L (3.5-6.1) 10^6/uL Hgb 8.6 L D (14.0-18.0) g/dL Hct 25.9 L (42.0-52.0) % MCV 95.2 D (80.0-105.0) fl MCH 31.6 (25.0-35.0) pg MCHC 33.2 (31.0-37.0) g/dl RDW 16.8 H (11.5-14.5) % Plt Count 27 L* (120.0-450.0) 10^3/uL MPV 10.5 (7.0-11.0) fl Gran % 55.5 (50.0-68.0) % Lymph % (Auto) 29.0 (22.0-35.0) % Wilson % (Auto) 14.9 H (1.0-6.0) % Eos % (Auto) 0.3 L (1.5-5.0) % Baso % (Auto) 0.3 (0.0-3.0) % Gran # 3.79 (1.4-6.5) Lymph # 2.0 (1.2-3.4) Wilson # 1.0 H (0.1-0.6) Eos # 0.0 (0.0-0.7) Baso # 0.02 (0.0-2.0) K/mm3 PT (9.9-11.8) Seconds INR (0.93-1.08) APTT (23.7-30.8) Seconds Fibrinogen 81.3 L* (187-400) mg/dL pCO2 44 (35-45) mm/Hg pO2 384.0 H (80-100) mm/Hg HCO3 19.7 L (21-28) mmol/L ABG pH 7.26 L (7.35-7.45) ABG Total CO2 21.1 L (22-28) mmol.L ABG O2 Saturation 100.9 H (95-98) % ABG Base Excess -6.8 L (-2.0-3.0) mmol/L ABG Potassium 3.8 (3.6-5.2) mmol/L VBG pH (7.32-7.43) VBG pCO2 (40-60) VBG HCO3 (21-28) mmol/l VBG Total CO2 (22-28) mmol.L VBG O2 Sat (Calc) (40-65) % VBG Base Excess (0.0-2.0) mmol/L VBG Potassium (3.6-5.2) mmol/L Glucose 111 H (75-110) mg/dl Lactate 9.4 H* (0.7-2.1) mmol/L FiO2 100.0 % Sodium 139.0 (132-148) mmol/L Potassium (3.6-5.0) mmol/L Chloride 113.0 H (95-110) mmol/L Carbon Dioxide (21-33) mmol/L Anion Gap (10-20) BUN (7-21) mg/dL Creatinine (0.8-1.5) mg/dL Est GFR ( Amer) Est GFR (Non-Af Amer) Random Glucose (70-110) mg/dL Lactic Acid (0.7-2.1) mmol/L Calcium (8.4-10.5) mg/dL Phosphorus (2.5-4.5) mg/dL Magnesium (1.7-2.2) mg/dL Total Bilirubin (0.2-1.3) mg/dL AST (17-59) U/L ALT (7-56) U/L Alkaline Phosphatase (38-126) U/L Ammonia (9-33) umol/L Troponin I ng/mL Total Protein (5.8-8.3) g/dL Albumin (3.0-4.8) g/dL Globulin gm/dL Albumin/Globulin Ratio (1.1-1.8) Amylase (35-125) U/L Arterial Blood Potassium 3.8 (3.6-5.2) mmol/L Venous Blood Potassium (3.6-5.2) mmol/L Hepatitis A IgM Ab (NEGATIVE) Hep Bs Antigen (NEGATIVE) Hep B Core IgM Ab (NEGATIVE) Hepatitis C Antibody (NEGATIVE) 02/28/17 02/28/17 02/28/17 Range/Units 03:50 03:50 03:50 WBC (4.5-11.0) 10^3/ul RBC (3.5-6.1) 10^6/uL Hgb (14.0-18.0) g/dL Hct (42.0-52.0) % MCV (80.0-105.0) fl MCH (25.0-35.0) pg MCHC (31.0-37.0) g/dl RDW (11.5-14.5) % Plt Count (120.0-450.0) 10^3/uL MPV (7.0-11.0) fl Gran % (50.0-68.0) % Lymph % (Auto) (22.0-35.0) % Wilson % (Auto) (1.0-6.0) % Eos % (Auto) (1.5-5.0) % Baso % (Auto) (0.0-3.0) % Gran # (1.4-6.5) Lymph # (1.2-3.4) Wilson # (0.1-0.6) Eos # (0.0-0.7) Baso # (0.0-2.0) K/mm3 PT 23.4 H (9.9-11.8) Seconds INR 2.17 H (0.93-1.08) APTT (23.7-30.8) Seconds Fibrinogen (187-400) mg/dL pCO2 (35-45) mm/Hg pO2 (80-100) mm/Hg HCO3 (21-28) mmol/L ABG pH (7.35-7.45) ABG Total CO2 (22-28) mmol.L ABG O2 Saturation (95-98) % ABG Base Excess (-2.0-3.0) mmol/L ABG Potassium (3.6-5.2) mmol/L VBG pH (7.32-7.43) VBG pCO2 (40-60) VBG HCO3 (21-28) mmol/l VBG Total CO2 (22-28) mmol.L VBG O2 Sat (Calc) (40-65) % VBG Base Excess (0.0-2.0) mmol/L VBG Potassium (3.6-5.2) mmol/L Glucose (75-110) mg/dl Lactate (0.7-2.1) mmol/L FiO2 % Sodium 141 (132-148) mmol/L Potassium 3.6 (3.6-5.0) mmol/L Chloride 105 (95-110) mmol/L Carbon Dioxide 24 (21-33) mmol/L Anion Gap 16 (10-20) BUN 25 H (7-21) mg/dL Creatinine 0.9 (0.8-1.5) mg/dL Est GFR ( Amer) > 60 Est GFR (Non-Af Amer) > 60 Random Glucose 128 H (70-110) mg/dL Lactic Acid (0.7-2.1) mmol/L Calcium 7.1 L (8.4-10.5) mg/dL Phosphorus 1.8 L (2.5-4.5) mg/dL Magnesium 1.9 (1.7-2.2) mg/dL Total Bilirubin 3.7 H (0.2-1.3) mg/dL AST 675 H D (17-59) U/L ALT 286 H (7-56) U/L Alkaline Phosphatase 59 (38-126) U/L Ammonia 43 H (9-33) umol/L Troponin I ng/mL Total Protein 4.5 L (5.8-8.3) g/dL Albumin 2.0 L (3.0-4.8) g/dL Globulin 2.5 gm/dL Albumin/Globulin Ratio 0.8 L (1.1-1.8) Amylase (35-125) U/L Arterial Blood Potassium (3.6-5.2) mmol/L Venous Blood Potassium (3.6-5.2) mmol/L Hepatitis A IgM Ab (NEGATIVE) Hep Bs Antigen (NEGATIVE) Hep B Core IgM Ab (NEGATIVE) Hepatitis C Antibody (NEGATIVE) 02/28/17 02/28/17 02/27/17 Range/Units 03:50 00:15 23:32 WBC 6.9 7.7 (4.5-11.0) 10^3/ul RBC 1.81 L 1.99 L (3.5-6.1) 10^6/uL Hgb 6.3 L* 7.5 L (14.0-18.0) g/dL Hct 18.9 L* 21.6 L (42.0-52.0) % MCV 104.4 D 108.5 H (80.0-105.0) fl MCH 34.8 37.7 H (25.0-35.0) pg MCHC 33.3 34.7 (31.0-37.0) g/dl RDW 19.0 H 15.2 H (11.5-14.5) % Plt Count 53 L 59 L (120.0-450.0) 10^3/uL MPV 9.9 9.7 (7.0-11.0) fl Gran % 61.4 72.5 H (50.0-68.0) % Lymph % (Auto) 28.2 19.4 L (22.0-35.0) % Wilson % (Auto) 10.0 H 7.7 H (1.0-6.0) % Eos % (Auto) 0.3 L 0.3 L (1.5-5.0) % Baso % (Auto) 0.1 0.1 (0.0-3.0) % Gran # 4.22 5.57 (1.4-6.5) Lymph # 1.9 1.5 (1.2-3.4) Wilson # 0.7 H 0.6 (0.1-0.6) Eos # 0.0 0.0 (0.0-0.7) Baso # 0.01 0.01 (0.0-2.0) K/mm3 PT 19.4 H (9.9-11.8) Seconds INR 1.80 H (0.93-1.08) APTT (23.7-30.8) Seconds Fibrinogen (187-400) mg/dL pCO2 (35-45) mm/Hg pO2 (80-100) mm/Hg HCO3 (21-28) mmol/L ABG pH (7.35-7.45) ABG Total CO2 (22-28) mmol.L ABG O2 Saturation (95-98) % ABG Base Excess (-2.0-3.0) mmol/L ABG Potassium (3.6-5.2) mmol/L VBG pH (7.32-7.43) VBG pCO2 (40-60) VBG HCO3 (21-28) mmol/l VBG Total CO2 (22-28) mmol.L VBG O2 Sat (Calc) (40-65) % VBG Base Excess (0.0-2.0) mmol/L VBG Potassium (3.6-5.2) mmol/L Glucose (75-110) mg/dl Lactate (0.7-2.1) mmol/L FiO2 % Sodium (132-148) mmol/L Potassium (3.6-5.0) mmol/L Chloride (95-110) mmol/L Carbon Dioxide (21-33) mmol/L Anion Gap (10-20) BUN (7-21) mg/dL Creatinine (0.8-1.5) mg/dL Est GFR ( Amer) Est GFR (Non-Af Amer) Random Glucose (70-110) mg/dL Lactic Acid (0.7-2.1) mmol/L Calcium (8.4-10.5) mg/dL Phosphorus (2.5-4.5) mg/dL Magnesium (1.7-2.2) mg/dL Total Bilirubin (0.2-1.3) mg/dL AST (17-59) U/L ALT (7-56) U/L Alkaline Phosphatase (38-126) U/L Ammonia (9-33) umol/L Troponin I ng/mL Total Protein (5.8-8.3) g/dL Albumin (3.0-4.8) g/dL Globulin gm/dL Albumin/Globulin Ratio (1.1-1.8) Amylase (35-125) U/L Arterial Blood Potassium (3.6-5.2) mmol/L Venous Blood Potassium (3.6-5.2) mmol/L Hepatitis A IgM Ab (NEGATIVE) Hep Bs Antigen (NEGATIVE) Hep B Core IgM Ab (NEGATIVE) Hepatitis C Antibody (NEGATIVE) 02/27/17 02/27/17 02/27/17 Range/Units 19:53 19:48 18:15 WBC 6.6 D (4.5-11.0) 10^3/ul RBC 1.92 L (3.5-6.1) 10^6/uL Hgb 7.2 L (14.0-18.0) g/dL Hct 20.9 L* (42.0-52.0) % MCV 108.9 H (80.0-105.0) fl MCH 37.5 H (25.0-35.0) pg MCHC 34.4 (31.0-37.0) g/dl RDW 15.3 H (11.5-14.5) % Plt Count 58 L (120.0-450.0) 10^3/uL MPV 9.6 (7.0-11.0) fl Gran % 69.7 H (50.0-68.0) % Lymph % (Auto) 21.1 L (22.0-35.0) % Wilson % (Auto) 8.8 H (1.0-6.0) % Eos % (Auto) 0.2 L (1.5-5.0) % Baso % (Auto) 0.2 (0.0-3.0) % Gran # 4.60 (1.4-6.5) Lymph # 1.4 (1.2-3.4) Wilson # 0.6 (0.1-0.6) Eos # 0.0 (0.0-0.7) Baso # 0.01 (0.0-2.0) K/mm3 PT (9.9-11.8) Seconds INR (0.93-1.08) APTT (23.7-30.8) Seconds Fibrinogen (187-400) mg/dL pCO2 (35-45) mm/Hg pO2 (80-100) mm/Hg HCO3 (21-28) mmol/L ABG pH (7.35-7.45) ABG Total CO2 (22-28) mmol.L ABG O2 Saturation (95-98) % ABG Base Excess (-2.0-3.0) mmol/L ABG Potassium (3.6-5.2) mmol/L VBG pH (7.32-7.43) VBG pCO2 (40-60) VBG HCO3 (21-28) mmol/l VBG Total CO2 (22-28) mmol.L VBG O2 Sat (Calc) (40-65) % VBG Base Excess (0.0-2.0) mmol/L VBG Potassium (3.6-5.2) mmol/L Glucose (75-110) mg/dl Lactate (0.7-2.1) mmol/L FiO2 % Sodium 138 (132-148) mmol/L Potassium 3.7 (3.6-5.0) mmol/L Chloride 100 (95-110) mmol/L Carbon Dioxide 35 H (21-33) mmol/L Anion Gap 7 L (10-20) BUN 26 H (7-21) mg/dL Creatinine 0.5 L (0.8-1.5) mg/dL Est GFR ( Amer) > 60 Est GFR (Non-Af Amer) > 60 Random Glucose 133 H (70-110) mg/dL Lactic Acid 2.4 H (0.7-2.1) mmol/L Calcium 7.7 L (8.4-10.5) mg/dL Phosphorus (2.5-4.5) mg/dL Magnesium (1.7-2.2) mg/dL Total Bilirubin 4.2 H (0.2-1.3) mg/dL AST 1127 H (17-59) U/L ALT 392 H (7-56) U/L Alkaline Phosphatase 85 (38-126) U/L Ammonia (9-33) umol/L Troponin I ng/mL Total Protein 6.0 (5.8-8.3) g/dL Albumin 2.7 L (3.0-4.8) g/dL Globulin 3.3 gm/dL Albumin/Globulin Ratio 0.8 L (1.1-1.8) Amylase 52 (35-125) U/L Arterial Blood Potassium (3.6-5.2) mmol/L Venous Blood Potassium (3.6-5.2) mmol/L Hepatitis A IgM Ab (NEGATIVE) Hep Bs Antigen (NEGATIVE) Hep B Core IgM Ab (NEGATIVE) Hepatitis C Antibody (NEGATIVE) 02/27/17 02/27/17 02/27/17 Range/Units 11:35 06:30 06:30 WBC 8.4 (4.5-11.0) 10^3/ul RBC 2.21 L (3.5-6.1) 10^6/uL Hgb 8.2 L (14.0-18.0) g/dL Hct 23.7 L (42.0-52.0) % MCV 107.2 H (80.0-105.0) fl MCH 37.1 H (25.0-35.0) pg MCHC 34.6 (31.0-37.0) g/dl RDW 15.2 H (11.5-14.5) % Plt Count 47 L* (120.0-450.0) 10^3/uL MPV 10.3 (7.0-11.0) fl Gran % 65.3 (50.0-68.0) % Lymph % (Auto) 24.0 (22.0-35.0) % Wilson % (Auto) 9.1 H (1.0-6.0) % Eos % (Auto) 0.2 L (1.5-5.0) % Baso % (Auto) 1.4 (0.0-3.0) % Gran # 5.49 (1.4-6.5) Lymph # 2.0 (1.2-3.4) Wilson # 0.8 H (0.1-0.6) Eos # 0.0 (0.0-0.7) Baso # 0.12 (0.0-2.0) K/mm3 PT (9.9-11.8) Seconds INR (0.93-1.08) APTT (23.7-30.8) Seconds Fibrinogen (187-400) mg/dL pCO2 (35-45) mm/Hg pO2 (80-100) mm/Hg HCO3 (21-28) mmol/L ABG pH (7.35-7.45) ABG Total CO2 (22-28) mmol.L ABG O2 Saturation (95-98) % ABG Base Excess (-2.0-3.0) mmol/L ABG Potassium (3.6-5.2) mmol/L VBG pH (7.32-7.43) VBG pCO2 (40-60) VBG HCO3 (21-28) mmol/l VBG Total CO2 (22-28) mmol.L VBG O2 Sat (Calc) (40-65) % VBG Base Excess (0.0-2.0) mmol/L VBG Potassium (3.6-5.2) mmol/L Glucose (75-110) mg/dl Lactate (0.7-2.1) mmol/L FiO2 % Sodium (132-148) mmol/L Potassium (3.6-5.0) mmol/L Chloride (95-110) mmol/L Carbon Dioxide (21-33) mmol/L Anion Gap (10-20) BUN (7-21) mg/dL Creatinine (0.8-1.5) mg/dL Est GFR ( Amer) Est GFR (Non-Af Amer) Random Glucose (70-110) mg/dL Lactic Acid (0.7-2.1) mmol/L Calcium (8.4-10.5) mg/dL Phosphorus (2.5-4.5) mg/dL Magnesium (1.7-2.2) mg/dL Total Bilirubin (0.2-1.3) mg/dL AST (17-59) U/L ALT (7-56) U/L Alkaline Phosphatase (38-126) U/L Ammonia (9-33) umol/L Troponin I ng/mL Total Protein (5.8-8.3) g/dL Albumin (3.0-4.8) g/dL Globulin gm/dL Albumin/Globulin Ratio (1.1-1.8) Amylase (35-125) U/L Arterial Blood Potassium (3.6-5.2) mmol/L Venous Blood Potassium (3.6-5.2) mmol/L Hepatitis A IgM Ab Negative (NEGATIVE) Hep Bs Antigen Negative Negative (NEGATIVE) Hep B Core IgM Ab Negative Negative (NEGATIVE) Hepatitis C Antibody Negative (NEGATIVE) Laboratory Results - last 24 hr 02/27/17 02/27/17 02/27/17 06:30 06:30 11:35 WBC 8.4 RBC 2.21 L Hgb 8.2 L Hct 23.7 L MCV 107.2 H MCH 37.1 H MCHC 34.6 RDW 15.2 H Plt Count 47 L* MPV 10.3 Gran % 65.3 Lymph % (Auto) 24.0 Wilson % (Auto) 9.1 H Eos % (Auto) 0.2 L Baso % (Auto) 1.4 Gran # 5.49 Lymph # 2.0 Wilson # 0.8 H Eos # 0.0 Baso # 0.12 PT INR APTT Fibrinogen pCO2 pO2 HCO3 ABG pH ABG Total CO2 ABG O2 Saturation ABG Base Excess ABG Potassium VBG pH VBG pCO2 VBG HCO3 VBG Total CO2 VBG O2 Sat (Calc) VBG Base Excess VBG Potassium Glucose Lactate FiO2 Sodium Potassium Chloride Carbon Dioxide Anion Gap BUN Creatinine Est GFR ( Amer) Est GFR (Non-Af Amer) Random Glucose Lactic Acid Calcium Phosphorus Magnesium Total Bilirubin AST ALT Alkaline Phosphatase Ammonia Troponin I Total Protein Albumin Globulin Albumin/Globulin Ratio Amylase Arterial Blood Potassium Venous Blood Potassium Hepatitis A IgM Ab Negative Hep Bs Antigen Negative Negative Hep B Core IgM Ab Negative Negative Hepatitis C Antibody Negative 02/27/17 02/27/17 02/27/17 18:15 19:48 19:53 WBC 6.6 D RBC 1.92 L Hgb 7.2 L Hct 20.9 L* MCV 108.9 H MCH 37.5 H MCHC 34.4 RDW 15.3 H Plt Count 58 L MPV 9.6 Gran % 69.7 H Lymph % (Auto) 21.1 L Wilson % (Auto) 8.8 H Eos % (Auto) 0.2 L Baso % (Auto) 0.2 Gran # 4.60 Lymph # 1.4 Wilson # 0.6 Eos # 0.0 Baso # 0.01 PT INR APTT Fibrinogen pCO2 pO2 HCO3 ABG pH ABG Total CO2 ABG O2 Saturation ABG Base Excess ABG Potassium VBG pH VBG pCO2 VBG HCO3 VBG Total CO2 VBG O2 Sat (Calc) VBG Base Excess VBG Potassium Glucose Lactate FiO2 Sodium 138 Potassium 3.7 Chloride 100 Carbon Dioxide 35 H Anion Gap 7 L BUN 26 H Creatinine 0.5 L Est GFR ( Amer) > 60 Est GFR (Non-Af Amer) > 60 Random Glucose 133 H Lactic Acid 2.4 H Calcium 7.7 L Phosphorus Magnesium Total Bilirubin 4.2 H AST 1127 H ALT 392 H Alkaline Phosphatase 85 Ammonia Troponin I Total Protein 6.0 Albumin 2.7 L Globulin 3.3 Albumin/Globulin Ratio 0.8 L Amylase 52 Arterial Blood Potassium Venous Blood Potassium Hepatitis A IgM Ab Hep Bs Antigen Hep B Core IgM Ab Hepatitis C Antibody 02/27/17 02/28/17 02/28/17 23:32 00:15 03:50 WBC 7.7 6.9 RBC 1.99 L 1.81 L Hgb 7.5 L 6.3 L* Hct 21.6 L 18.9 L* MCV 108.5 H 104.4 D MCH 37.7 H 34.8 MCHC 34.7 33.3 RDW 15.2 H 19.0 H Plt Count 59 L 53 L MPV 9.7 9.9 Gran % 72.5 H 61.4 Lymph % (Auto) 19.4 L 28.2 Wilson % (Auto) 7.7 H 10.0 H Eos % (Auto) 0.3 L 0.3 L Baso % (Auto) 0.1 0.1 Gran # 5.57 4.22 Lymph # 1.5 1.9 Wilson # 0.6 0.7 H Eos # 0.0 0.0 Baso # 0.01 0.01 PT 19.4 H INR 1.80 H APTT Fibrinogen pCO2 pO2 HCO3 ABG pH ABG Total CO2 ABG O2 Saturation ABG Base Excess ABG Potassium VBG pH VBG pCO2 VBG HCO3 VBG Total CO2 VBG O2 Sat (Calc) VBG Base Excess VBG Potassium Glucose Lactate FiO2 Sodium Potassium Chloride Carbon Dioxide Anion Gap BUN Creatinine Est GFR ( Amer) Est GFR (Non-Af Amer) Random Glucose Lactic Acid Calcium Phosphorus Magnesium Total Bilirubin AST ALT Alkaline Phosphatase Ammonia Troponin I Total Protein Albumin Globulin Albumin/Globulin Ratio Amylase Arterial Blood Potassium Venous Blood Potassium Hepatitis A IgM Ab Hep Bs Antigen Hep B Core IgM Ab Hepatitis C Antibody 02/28/17 02/28/17 02/28/17 03:50 03:50 03:50 WBC RBC Hgb Hct MCV MCH MCHC RDW Plt Count MPV Gran % Lymph % (Auto) Wilson % (Auto) Eos % (Auto) Baso % (Auto) Gran # Lymph # Wilson # Eos # Baso # PT 23.4 H INR 2.17 H APTT Fibrinogen pCO2 pO2 HCO3 ABG pH ABG Total CO2 ABG O2 Saturation ABG Base Excess ABG Potassium VBG pH VBG pCO2 VBG HCO3 VBG Total CO2 VBG O2 Sat (Calc) VBG Base Excess VBG Potassium Glucose Lactate FiO2 Sodium 141 Potassium 3.6 Chloride 105 Carbon Dioxide 24 Anion Gap 16 BUN 25 H Creatinine 0.9 Est GFR ( Amer) > 60 Est GFR (Non-Af Amer) > 60 Random Glucose 128 H Lactic Acid Calcium 7.1 L Phosphorus 1.8 L Magnesium 1.9 Total Bilirubin 3.7 H AST 675 H D ALT 286 H Alkaline Phosphatase 59 Ammonia 43 H Troponin I Total Protein 4.5 L Albumin 2.0 L Globulin 2.5 Albumin/Globulin Ratio 0.8 L Amylase Arterial Blood Potassium Venous Blood Potassium Hepatitis A IgM Ab Hep Bs Antigen Hep B Core IgM Ab Hepatitis C Antibody 02/28/17 02/28/17 02/28/17 03:50 04:38 06:00 WBC 6.8 RBC 2.72 L Hgb 8.6 L D Hct 25.9 L MCV 95.2 D MCH 31.6 MCHC 33.2 RDW 16.8 H Plt Count 27 L* MPV 10.5 Gran % 55.5 Lymph % (Auto) 29.0 Wilson % (Auto) 14.9 H Eos % (Auto) 0.3 L Baso % (Auto) 0.3 Gran # 3.79 Lymph # 2.0 Wilson # 1.0 H Eos # 0.0 Baso # 0.02 PT INR APTT Fibrinogen 81.3 L* pCO2 44 pO2 384.0 H HCO3 19.7 L ABG pH 7.26 L ABG Total CO2 21.1 L ABG O2 Saturation 100.9 H ABG Base Excess -6.8 L ABG Potassium 3.8 VBG pH VBG pCO2 VBG HCO3 VBG Total CO2 VBG O2 Sat (Calc) VBG Base Excess VBG Potassium Glucose 111 H Lactate 9.4 H* FiO2 100.0 Sodium 139.0 Potassium Chloride 113.0 H Carbon Dioxide Anion Gap BUN Creatinine Est GFR ( Amer) Est GFR (Non-Af Amer) Random Glucose Lactic Acid Calcium Phosphorus Magnesium Total Bilirubin AST ALT Alkaline Phosphatase Ammonia Troponin I Total Protein Albumin Globulin Albumin/Globulin Ratio Amylase Arterial Blood Potassium 3.8 Venous Blood Potassium Hepatitis A IgM Ab Hep Bs Antigen Hep B Core IgM Ab Hepatitis C Antibody 02/28/17 02/28/17 02/28/17 06:41 06:41 09:40 WBC RBC Hgb Hct MCV MCH MCHC RDW Plt Count MPV Gran % Lymph % (Auto) Wilson % (Auto) Eos % (Auto) Baso % (Auto) Gran # Lymph # Wilson # Eos # Baso # PT 22.3 H INR 2.06 H APTT 65.8 H Fibrinogen 72.8 L* pCO2 pO2 50 HCO3 ABG pH ABG Total CO2 ABG O2 Saturation ABG Base Excess ABG Potassium VBG pH 7.12 L* VBG pCO2 55.0 VBG HCO3 17.9 L VBG Total CO2 19.6 L VBG O2 Sat (Calc) 87.9 H VBG Base Excess -11.7 L VBG Potassium 4.3 Glucose 70 L Lactate 10.3 H* FiO2 21.0 Sodium 140.0 Potassium Chloride 109.0 H Carbon Dioxide Anion Gap BUN Creatinine Est GFR ( Amer) Est GFR (Non-Af Amer) Random Glucose Lactic Acid Calcium Phosphorus Magnesium Total Bilirubin AST ALT Alkaline Phosphatase Ammonia Troponin I 0.24 H* Total Protein Albumin Globulin Albumin/Globulin Ratio Amylase Arterial Blood Potassium Venous Blood Potassium 4.3 Hepatitis A IgM Ab Hep Bs Antigen Hep B Core IgM Ab Hepatitis C Antibody Fingerstick Blood Sugar Results: 139 Review of Systems - Review of Systems Systems not reviewed;Unavailable: Altered Mental Status Critical Care Progress Note - Ventilator Checklist Head of Bed 30 Degrees: Yes Daily Sedation Vacation: Yes Daily Assessment of Readiness to Wean: Yes Daily Spontaneous Breathing Trial: Yes PUD Prophalyxis: Yes DVT Prophylaxis: Yes Oral Care with Chlorhexidine Gluconate {CHG}: Yes - Nutrition Nutrition: Nutrition Category Date Time Status NPO Diet [DIET] Diets 02/26/17 Lunch Ordered Assessment/Plan - Assessment and Plan (Free Text) Assessment: 56 y/o M w/ AMS hepatic encephalopathy and UPPER GI bleed. Found to have mesenteric ischemia and s/p IR stent placement x 2 yesterday evening. Overnight had massive upper GI bleed and was intubated and received > 6 units PRBC, FFp, Cryo. Endoscopy done this morning, no active bleeding although some ulcers sites were clipped. Plan to keep HGB> 7, Platelets > 50k, INR< 2. Continue to monitor for worsening ischemia and abd pain. Supportive care with vasopressors, ABX and vent management. Plan to keep MAP> 65 , on Fentanyl , Versed and Propofol. SCD, Protonix and Octreotide drip. Poor prognosis family aware. High mortality CC time 75 min
--- NOTE | 2017-02-28 10:30 | CARD ---
APPROVED REPORT EKG Measurement Heart [id number] <Conclusion> Sinus tachycardia Otherwise normal ECG
[2017-02-28 10:37] LABS: ABG MECHANICAL RATE 30; ARTERIAL BLOOD GAS HCO3 15.3 mmol/L (21-28); ATERIAL BLOOD GAS PEEP 5
[2017-02-28] MEDS ORDERED: Sodium Bicarbonate (8.4%) 50 Meq Syringe ONE (10:42)
[2017-02-28 10:45] LABS: ARTERIAL BLOOD GAS PH 7.13 (7.35-7.45)
[2017-02-28] MEDS ORDERED: Sodium Bicarbonate (8.4%) 50 Meq Syringe IVP ONE (10:45)
[2017-02-28 10:46] LABS: BASO # 0.06 K/mm3 (0.0-2.0); BASO % 0.6 % (0.0-3.0); EOS % 0.2 % (1.5-5.0); GRAN # 5.87 (1.4-6.5); GRAN % 57.5 % (50.0-68.0); HEMATOCRIT 28.4 % (42.0-52.0); LYMPH # 2.9 (1.2-3.4); MEAN CELL VOLUME 93.4 fl (80.0-105.0); MEAN CORPUSCULAR HEMOGLOBIN 32.2 pg (25.0-35.0); MEAN CORPUSCULAR HGB CONC 34.5 g/dl (31.0-37.0); MEAN PLATELET VOLUME 8.9 fl (7.0-11.0); MONO # 1.4 (0.1-0.6); MONO % 13.7 % (1.0-6.0); RED CELL DISTRIBUTION WIDTH 16.6 % (11.5-14.5); WHITE BLOOD COUNT 10.2 10^3/ul (4.5-11.0)
--- NOTE | 2017-02-28 11:03 | CP.PCM.PN ---
<Lila Alvarenga - Last Filed: 02/28/17 11:26> Subjective - Date & Time of Evaluation Date of Evaluation: 02/28/17 Time of Evaluation: 07:15 - Subjective Subjective: Hospitalist Service Progress Note: Patient seen and examined at bedside. Patient s/p IR stent placement in SMA and JOSH yesterday after EGD showed evidence of mesenteric ischemia. When back in the unit patient was hypotensive and hypoxic, decision was made to intubate. Patient with massive upper GI Bleed. Currently hypotensive on vasopressors. Protonix drip and octreotide drip still on. Objective - Vital Signs/Intake and Output Vital Signs (last 24 hours): Temp Pulse Resp BP Pulse Ox 98.2 F 132 H 40 H 162/66 H 100 02/28/17 08:00 02/28/17 08:10 02/28/17 08:00 02/28/17 08:06 02/28/17 08:10 Intake and Output: 02/28/17 02/28/17 06:59 18:59 Intake Total 325 263 Balance 325 263 - Medications Medications: Current Medications Fentanyl (Fentanyl) 100 mcg IVP Q2 PRN PRN Reason: Pain, severe (8-10) Last Admin: 02/28/17 08:45 Dose: 100 mcg Octreotide Acetate 1,250 mcg/ (Sodium Chloride) 252.5 mls @ 10.1 mls/hr IV .Q24H ED; 50 MCG/HR PRN Reason: Protocol Last Admin: 02/27/17 19:29 Dose: 50 mcg/hr, 10.1 mls/hr Pantoprazole Sodium (Protonix 40mg Ivpb) 40 mg in 100 mls @ 20 mls/hr IVPB .Q5H ED Last Admin: 02/28/17 07:44 Dose: 20 mls/hr Piperacillin Sod/Tazobactam Sod (Zosyn 3.375 In Ns 100ml) 100 mls @ 200 mls/hr IVPB Q6 ED PRN Reason: Protocol Stop: 03/08/17 18:01 Last Admin: 02/28/17 00:30 Dose: 200 mls/hr Dextrose/Sodium Chloride (Dextrose 5%/0.9% Ns 1000 Ml) 1,000 mls @ 125 mls/hr IV .Q8H ED Last Admin: 02/27/17 19:12 Dose: 125 mls/hr Sodium Chloride (Sodium Chloride 0.9%) 1,000 mls @ 100 mls/hr IV .Q10H ED Dopamine HCl 800 mg/ Dextrose 270 mls @ 3.74 mls/hr IV .Q24H PRN; Protocol; 2 MCG/KG/MIN PRN Reason: TITRATE PER MD ORDER Last Admin: 02/28/17 06:13 Dose: 2 mcg/kg/min, 3.74 mls/hr NOREPINEPHRINE BIT/0.9 % NACL (Levophed 4 Mg/ 250 Ml Ns Premixed) 4 mg in 250 mls @ 15 mls/hr IV .[id number] PRN; Protocol; 4 MCG/MIN PRN Reason: TITRATE PER MD ORDER Last Admin: 02/28/17 09:32 Dose: 15 mcg/min, 56.25 mls/hr Propofol (Diprivan) 1,000 mg in 100 mls @ 2.776 mls/hr IV .Q24H PRN; Protocol; 5 MCG/KG/MIN PRN Reason: TITRATE PER MD ORDER Last Titration: 02/28/17 07:59 Dose: 50 mcg/kg/min, 27.76 mls/hr Vasopressin 20 units/ Dextrose 101 mls @ 9.09 mls/hr IV .Q11H7M ED; 0.03 U/MIN PRN Reason: Protocol Last Admin: 02/28/17 07:43 Dose: 9.09 mls/hr Cisatracurium Besylate 100 mg/ (Sodium Chloride) 260 mls @ 43.3 mls/hr IV .Q6H1M PRN; Protocol; 3 MCG/KG/MIN PRN Reason: TITRATE PER MD ORDER Midazolam 100 mg/100ml in NS (Midazolam 100 Mg/100ml In Ns) 100 mg in 100 mls @ 1 mls/hr IV .Q24H PRN; Protocol; 1 MG/HR PRN Reason: Sedation Last Titration: 02/28/17 09:00 Dose: 10 mg/hr, 10 mls/hr Lactulose (Generlac) 200 gm [place] Q6H ED Last Admin: 02/27/17 23:31 Dose: 200 gm Lorazepam (Ativan) 2 mg IVP Q6H PRN; Protocol PRN Reason: Withdrawal Sodium Bicarbonate (Sodium Bicarbonate 8.4% (50 Meq) Syringe) 100 meq IVP ONCE ONE Stop: 02/28/17 10:46 - Labs Labs: 02/28/17 11:15 02/28/17 03:50 PT 22.3 Seconds (9.9-11.8) H 02/28/17 06:41 INR 2.06 (0.93-1.08) H 02/28/17 06:41 APTT 65.8 Seconds (23.7-30.8) H 02/28/17 06:41 - Head Exam Head Exam: ATRAUMATIC, NORMAL INSPECTION - Eye Exam Eye Exam: Scleral icterus Pupil Exam: PERRL - ENT Exam Additional comments: ETT in place - Respiratory Exam Respiratory Exam: Accessory Muscle Use, Decreased Breath Sounds, Rales. absent : Rhonchi, Wheezes Additional comments: +Ventilator breath sounds Tachypnic, agonal breathing - Cardiovascular Exam Cardiovascular Exam: Tachycardia, +S1, +S2 - GI/Abdominal Exam GI & Abdominal Exam: Distended, Soft. absent: Guarding, Rigid, Tenderness, Rebound - Rectal Exam Additional comments: Fresh blood per rectum - Exam Additional comments: Samano in draining urine - Extremities Exam Extremities Exam: absent: Tenderness - Back Exam Back Exam: NORMAL INSPECTION - Neurological Exam Neurological Exam: absent: Alert (Intubated and sedated) - Psychiatric Exam Psychiatric exam: absent: Normal Affect, Normal Mood - Skin Skin Exam: Dry, Normal Color. absent: Warm Assessment and Plan - Assessment and Plan (Free Text) Assessment: 56 year old male with past medical history of alcohol abuse and HTN presents to the ED for GI bleed and alcohol withdrawal. Currently with massive upper GI bleed and hypotension. Massive transfusion protocol underway. Plan: 1. Acute Respiratory Failure on mechanical ventilation -Intubated and sedated; on Fentanyl , Versed and Propofol. -Hypotensive on pressors -Vent management per ICU management 2. Acute Upper GI Bleed -EGD yesterday showed severe esophagitis, gastric ulcer, portal gastropathy. no active bleeding noted. purple discoloration and severe congestion in the gastric fundus suggesting possible ischemia -Currently having massive GI bleed, for possible bedside EGD -Massive transfusion protocol underway; received > 6 units of PRBs, FFP, Cryo -Continue to monitor CBC q6h -Continue Octreotide drip, protonix drip -Continue IVF hydration -Abx: Vanco and zosyn -GI on consult f/u recommendations 3. Mesenteric Ischemia -S/P IR stent placement yesterday evening -Continue to monitor for worsening ischemia and abd pain. 4. Altered Mental Status 2/2 hepatic encephalopathy vs alcohol withdrawal -Intubated and sedated -Continue Lactulose titrated to BMs 5. Alcohol withdrawal; Hx of alcohol abuse -Alcohol level on admission <10 -CIWA protocol, seizure precautions, aspiration precautions 6. Acute Liver Failure/Transaminitis -Received Vitamin K in the ED -Currenlty recieving FFP -Liver trending down; AST/ALT 675/286; INR 2.06 -Avoid hepatotoxic agents -RUQ US: heptocellular disease -As patient is currently unstable, transfer to [facility] on hold at this time 7. Lactic acidosis Type B -Lactate 12.4 on admission, intitially trended down -Likely secondary to hypoperfusion/liver disease -Abx: vanco and zosyn -Lactate currently 2.4 -Blood cx showing no growth 8. Elevated troponin likely 2/2 demand ischemia in the setting of Acute GI bleed -Troponin 0.34 - 0.45 - 0.21 - 0.24 -Cardiology consulted, f/u recommendations 9. Thrombocytopenia 2/2 alcoholic liver disease -Platelets 27 yesterday, Transfusing platelets -Recieved one unit of platelets yesterdat -Will continue to monitor 9. Hx of Hypertension -Currently hypotensive on pressors -Plan to keep MAP> 65 -Will continue to monitor 10. Electrolyte imbalance -Will monitor closely and replete as needed GI/DVT PPx -Protonix drip -SCDs <Madhu Watters - Last Filed: 03/01/17 12:30> Objective - Vital Signs/Intake and Output Vital Signs (last 24 hours): Temp Pulse Resp BP Pulse Ox 98 F 108 H 32 H 90/60 L 100 03/01/17 00:00 03/01/17 01:30 02/28/17 15:00 03/01/17 03:10 03/01/17 01:30 Intake and Output: 03/01/17 03/01/17 06:59 18:59 Intake Total 1000 Balance 1000 - Labs Labs: 03/01/17 00:35 02/28/17 16:40 PT 18.8 Seconds (9.9-11.8) H 03/01/17 00:10 INR 1.74 (0.93-1.08) H 03/01/17 00:10 APTT 57.7 Seconds (23.7-30.8) H 03/01/17 00:10 Attending/Attestation - Attestation I have personally seen and examined this patient.: Yes I have fully participated in the care of the patient.: Yes I have reviewed all pertinent clinical information, including history, physical exam and plan: Yes Notes (Text): 03/01/17 12:19 attending note; Patient seen and examined with resident in ICU. Patient is currently intubated. Currently on pressors for BP support. Had significant GI bleeding last night. Got multiple units of PRBC and FFP. Patient is 56 year old male with PMH of HTN, ETOH abuse(>6 beers per day x 30y) presents with hematemesis and AMS. Hemorrhagic Shock;active GI bleed. Continue IV Protonix and IV octerotide. EGD showed severe esophagitis, gastric ulcer, portal gastropathy. no active bleeding noted. purple discoloration and severe congestion in the gastric fundus suggesting possible ischemia. status post Angiogram with SMA and JOSH stent placement. Surgery evaluation appreciated. Case discussed with GI for repeat endoscopy today. lactic acidosis; secondary to hypoperfusion/liver disease. continue vancomycin and Zosyn. patient is critically ill. Case discussed with patient's and Patient's daughter in detail. Prognosis explained. Case discussed with [facility] GI team. advised to continue current medical management with supportive care. Addendum; Patient had repeat endoscopy this morning. Bleeding ulcer injected with epinephrine. surgery evaluation requested. case discussed with surgical garment assembly supervisor in detail. plan for possible surgery today after stabilization. 03/01/17 12:27
[2017-02-28 11:35] LABS: INR 1.81 (0.93-1.08)
[2017-02-28 11:36] LABS: PARTIAL THROMBOPLASTIN TIME 59.8 Seconds (23.7-30.8)
--- NOTE | 2017-02-28 12:17 | CP.PCM.CON ---
History of Present Illness - History of Present Illness History of Present Illness: Palliative consult requested by Dr Lois Watters copied Reason: Goals of care 56 year old male with history of alcohol abuse and HTN who presented with hematamesis and altered mental status.He denied fever, chills, chest pain, abdominal pain or shortness of breath. Endoscopy report showed two non bleeding ulcers in stomach, severe diffuse portal hypertensive gastropathy and localized purple discoloration in gastric fundas and body. 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 Overnight he had a massive upper GI bleed>hypotension>hypoxia> was intubated. UGI endo found no active bleeding site, clips senior manager asset protection placed at ulcer site. He has receive multiple transfusions. He continuos to have copious rectal bleeding. Surgery has been consulted for possible emergent intervention. Prognosis is poor. PMHX: alcohol abuse, HTN Social History: Heavy smoker, 30 year daily alcohol use( 3-6 beers), occasional marijuana use. , lives with spouse. Family History: Non contributory Advance Care Planning: The patient does not have an Advanced Directive Review of Systems: As per HPI, patient is currently intubated unable to obtain comprehensive review. Past Patient History - Infectious Disease Hx of Infectious Diseases: None - Past Social History Smoking Status: Heavy Smoker > 10 Cigarettes Daily - CARDIAC Hx Cardiac Disorders: Yes Hx Hypertension: Yes - PULMONARY Hx Emphysema: Yes - NEUROLOGICAL Hx Neurological Disorder: Yes (tremors) - HEENT Hx HEENT Problems: No - RENAL Hx Chronic Kidney Disease: No - ENDOCRINE/METABOLIC Hx Endocrine Disorders: No - HEMATOLOGICAL/ONCOLOGICAL Hx Blood Disorders: No - INTEGUMENTARY Hx Dermatological Problems: No - MUSCULOSKELETAL/RHEUMATOLOGICAL Hx Falls: No - GASTROINTESTINAL Hx Gastrointestinal Disorders: No Hx Bowel Surgery: No - GENITOURINARY/GYNECOLOGICAL Hx Genitourinary Disorders: No - PSYCHIATRIC Hx Substance Use: Yes (occasional marijuana) - SURGICAL HISTORY Hx Surgeries: Yes - ANESTHESIA Hx Anesthesia Reactions: No Meds Allergies/Adverse Reactions: Allergies Allergy/AdvReac Type Severity Reaction Status Date / Time No Known Allergies Allergy Verified 02/26/17 14:21 - Medications Medications: Current Medications Fentanyl (Fentanyl) 100 mcg IVP Q2 PRN PRN Reason: Pain, severe (8-10) Last Admin: 02/28/17 08:45 Dose: 100 mcg Octreotide Acetate 1,250 mcg/ (Sodium Chloride) 252.5 mls @ 10.1 mls/hr IV .Q24H ED; 50 MCG/HR PRN Reason: Protocol Last Admin: 02/27/17 19:29 Dose: 50 mcg/hr, 10.1 mls/hr Pantoprazole Sodium (Protonix 40mg Ivpb) 40 mg in 100 mls @ 20 mls/hr IVPB .Q5H ED Last Admin: 02/28/17 07:44 Dose: 20 mls/hr Piperacillin Sod/Tazobactam Sod (Zosyn 3.375 In Ns 100ml) 100 mls @ 200 mls/hr IVPB Q6 ED PRN Reason: Protocol Stop: 03/08/17 18:01 Last Admin: 02/28/17 11:55 Dose: 200 mls/hr Dextrose/Sodium Chloride (Dextrose 5%/0.9% Ns 1000 Ml) 1,000 mls @ 125 mls/hr IV .Q8H ED Last Admin: 02/27/17 19:12 Dose: 125 mls/hr Sodium Chloride (Sodium Chloride 0.9%) 1,000 mls @ 100 mls/hr IV .Q10H ED Dopamine HCl 800 mg/ Dextrose 270 mls @ 3.74 mls/hr IV .Q24H PRN; Protocol; 2 MCG/KG/MIN PRN Reason: TITRATE PER MD ORDER Last Admin: 02/28/17 06:13 Dose: 2 mcg/kg/min, 3.74 mls/hr NOREPINEPHRINE BIT/0.9 % NACL (Levophed 4 Mg/ 250 Ml Ns Premixed) 4 mg in 250 mls @ 15 mls/hr IV .[id number] PRN; Protocol; 4 MCG/MIN PRN Reason: TITRATE PER MD ORDER Last Admin: 02/28/17 11:38 Dose: 40 mcg/min, 150 mls/hr Propofol (Diprivan) 1,000 mg in 100 mls @ 2.776 mls/hr IV .Q24H PRN; Protocol; 5 MCG/KG/MIN PRN Reason: TITRATE PER MD ORDER Last Admin: 02/28/17 11:12 Dose: 50 mcg/kg/min, 27.76 mls/hr Vasopressin 20 units/ Dextrose 101 mls @ 9.09 mls/hr IV .Q11H7M ED; 0.03 U/MIN PRN Reason: Protocol Last Admin: 02/28/17 07:43 Dose: 9.09 mls/hr Cisatracurium Besylate 100 mg/ (Sodium Chloride) 260 mls @ 43.3 mls/hr IV .Q6H1M PRN; Protocol; 3 MCG/KG/MIN PRN Reason: TITRATE PER MD ORDER Midazolam 100 mg/100ml in NS (Midazolam 100 Mg/100ml In Ns) 100 mg in 100 mls @ 1 mls/hr IV .Q24H PRN; Protocol; 1 MG/HR PRN Reason: Sedation Last Titration: 02/28/17 09:00 Dose: 10 mg/hr, 10 mls/hr Lactulose (Generlac) 200 gm [place] Q6H ED Last Admin: 02/27/17 23:31 Dose: 200 gm Lorazepam (Ativan) 2 mg IVP Q6H PRN; Protocol PRN Reason: Withdrawal Physical Exam - Constitutional Appears: No Acute Distress - Head Exam Head Exam: NORMOCEPHALIC - Eye Exam Eye Exam: Normal appearance, PERRL - ENT Exam ENT Exam: Mucous Membranes Moist - Respiratory Exam Respiratory Exam: Decreased Breath Sounds, NORMAL BREATHING PATTERN - Cardiovascular Exam Cardiovascular Exam: Tachycardia, +S1, +S2 - GI/Abdominal Exam GI & Abdominal Exam: Diminished Bowel Sounds, Soft Additional comments: diffuse dark red rectal bleeding - Extremities Exam Extremities exam: Positive for: normal inspection, pedal pulses present - Back Exam Back exam: NORMAL INSPECTION - Skin Skin Exam: Dry, Pallor - Additional Findings Additional findings: Palliative performance scale rating 10 % Results - Vital Signs Recent Vital Signs: Last Vital Signs Temp 98.4 F 02/28/17 11:34 Pulse 117 H 02/28/17 11:34 Resp 35 H 02/28/17 11:34 BP 123/70 02/28/17 11:34 Pulse Ox 99 02/28/17 11:34 - Labs Result Diagrams: 02/28/17 11:15 02/28/17 03:50 Labs: Laboratory Results - last 24 hr 02/27/17 02/27/17 02/27/17 06:30 06:30 18:15 WBC 6.6 D RBC 1.92 L Hgb 7.2 L Hct 20.9 L* MCV 108.9 H MCH 37.5 H MCHC 34.4 RDW 15.3 H Plt Count 58 L MPV 9.6 Gran % 69.7 H Lymph % (Auto) 21.1 L George % (Auto) 8.8 H Eos % (Auto) 0.2 L Baso % (Auto) 0.2 Gran # 4.60 Lymph # 1.4 George # 0.6 Eos # 0.0 Baso # 0.01 PT INR APTT Fibrinogen pCO2 pO2 HCO3 ABG pH ABG Total CO2 ABG O2 Saturation ABG Base Excess ABG Potassium VBG pH VBG pCO2 VBG HCO3 VBG Total CO2 VBG O2 Sat (Calc) VBG Base Excess VBG Potassium Glucose Lactate Mechanical Rate FiO2 Tidal Volume PEEP Sodium Potassium Chloride Carbon Dioxide Anion Gap BUN Creatinine Est GFR ( Amer) Est GFR (Non-Af Amer) Random Glucose Lactic Acid Calcium Phosphorus Magnesium Total Bilirubin AST ALT Alkaline Phosphatase Ammonia Troponin I Total Protein Albumin Globulin Albumin/Globulin Ratio Amylase Arterial Blood Potassium Venous Blood Potassium Hepatitis A IgM Ab Negative Hep Bs Antigen Negative Negative Hep B Core IgM Ab Negative Negative Hepatitis C Antibody Negative 02/27/17 02/27/17 02/27/17 19:48 19:53 23:32 WBC 7.7 RBC 1.99 L Hgb 7.5 L Hct 21.6 L MCV 108.5 H MCH 37.7 H MCHC 34.7 RDW 15.2 H Plt Count 59 L MPV 9.7 Gran % 72.5 H Lymph % (Auto) 19.4 L George % (Auto) 7.7 H Eos % (Auto) 0.3 L Baso % (Auto) 0.1 Gran # 5.57 Lymph # 1.5 George # 0.6 Eos # 0.0 Baso # 0.01 PT INR APTT Fibrinogen pCO2 pO2 HCO3 ABG pH ABG Total CO2 ABG O2 Saturation ABG Base Excess ABG Potassium VBG pH VBG pCO2 VBG HCO3 VBG Total CO2 VBG O2 Sat (Calc) VBG Base Excess VBG Potassium Glucose Lactate Mechanical Rate FiO2 Tidal Volume PEEP Sodium 138 Potassium 3.7 Chloride 100 Carbon Dioxide 35 H Anion Gap 7 L BUN 26 H Creatinine 0.5 L Est GFR ( Amer) > 60 Est GFR (Non-Af Amer) > 60 Random Glucose 133 H Lactic Acid 2.4 H Calcium 7.7 L Phosphorus Magnesium Total Bilirubin 4.2 H AST 1127 H ALT 392 H Alkaline Phosphatase 85 Ammonia Troponin I Total Protein 6.0 Albumin 2.7 L Globulin 3.3 Albumin/Globulin Ratio 0.8 L Amylase 52 Arterial Blood Potassium Venous Blood Potassium Hepatitis A IgM Ab Hep Bs Antigen Hep B Core IgM Ab Hepatitis C Antibody 02/28/17 02/28/17 02/28/17 00:15 03:50 03:50 WBC 6.9 RBC 1.81 L Hgb 6.3 L* Hct 18.9 L* MCV 104.4 D MCH 34.8 MCHC 33.3 RDW 19.0 H Plt Count 53 L MPV 9.9 Gran % 61.4 Lymph % (Auto) 28.2 George % (Auto) 10.0 H Eos % (Auto) 0.3 L Baso % (Auto) 0.1 Gran # 4.22 Lymph # 1.9 George # 0.7 H Eos # 0.0 Baso # 0.01 PT 19.4 H INR 1.80 H APTT Fibrinogen pCO2 pO2 HCO3 ABG pH ABG Total CO2 ABG O2 Saturation ABG Base Excess ABG Potassium VBG pH VBG pCO2 VBG HCO3 VBG Total CO2 VBG O2 Sat (Calc) VBG Base Excess VBG Potassium Glucose Lactate Mechanical Rate FiO2 Tidal Volume PEEP Sodium 141 Potassium 3.6 Chloride 105 Carbon Dioxide 24 Anion Gap 16 BUN 25 H Creatinine 0.9 Est GFR ( Amer) > 60 Est GFR (Non-Af Amer) > 60 Random Glucose 128 H Lactic Acid Calcium 7.1 L Phosphorus 1.8 L Magnesium 1.9 Total Bilirubin 3.7 H AST 675 H D ALT 286 H Alkaline Phosphatase 59 Ammonia Troponin I Total Protein 4.5 L Albumin 2.0 L Globulin 2.5 Albumin/Globulin Ratio 0.8 L Amylase Arterial Blood Potassium Venous Blood Potassium Hepatitis A IgM Ab Hep Bs Antigen Hep B Core IgM Ab Hepatitis C Antibody 02/28/17 02/28/17 02/28/17 03:50 03:50 03:50 WBC RBC Hgb Hct MCV MCH MCHC RDW Plt Count MPV Gran % Lymph % (Auto) George % (Auto) Eos % (Auto) Baso % (Auto) Gran # Lymph # George # Eos # Baso # PT 23.4 H INR 2.17 H APTT Fibrinogen 81.3 L* pCO2 pO2 HCO3 ABG pH ABG Total CO2 ABG O2 Saturation ABG Base Excess ABG Potassium VBG pH VBG pCO2 VBG HCO3 VBG Total CO2 VBG O2 Sat (Calc) VBG Base Excess VBG Potassium Glucose Lactate Mechanical Rate FiO2 Tidal Volume PEEP Sodium Potassium Chloride Carbon Dioxide Anion Gap BUN Creatinine Est GFR ( Amer) Est GFR (Non-Af Amer) Random Glucose Lactic Acid Calcium Phosphorus Magnesium Total Bilirubin AST ALT Alkaline Phosphatase Ammonia 43 H Troponin I Total Protein Albumin Globulin Albumin/Globulin Ratio Amylase Arterial Blood Potassium Venous Blood Potassium Hepatitis A IgM Ab Hep Bs Antigen Hep B Core IgM Ab Hepatitis C Antibody 02/28/17 02/28/17 02/28/17 04:38 06:00 06:41 WBC 6.8 RBC 2.72 L Hgb 8.6 L D Hct 25.9 L MCV 95.2 D MCH 31.6 MCHC 33.2 RDW 16.8 H Plt Count 27 L* MPV 10.5 Gran % 55.5 Lymph % (Auto) 29.0 George % (Auto) 14.9 H Eos % (Auto) 0.3 L Baso % (Auto) 0.3 Gran # 3.79 Lymph # 2.0 George # 1.0 H Eos # 0.0 Baso # 0.02 PT INR APTT Fibrinogen pCO2 44 pO2 384.0 H HCO3 19.7 L ABG pH 7.26 L ABG Total CO2 21.1 L ABG O2 Saturation 100.9 H ABG Base Excess -6.8 L ABG Potassium 3.8 VBG pH VBG pCO2 VBG HCO3 VBG Total CO2 VBG O2 Sat (Calc) VBG Base Excess VBG Potassium Glucose 111 H Lactate 9.4 H* Mechanical Rate FiO2 100.0 Tidal Volume PEEP Sodium 139.0 Potassium Chloride 113.0 H Carbon Dioxide Anion Gap BUN Creatinine Est GFR ( Amer) Est GFR (Non-Af Amer) Random Glucose Lactic Acid Calcium Phosphorus Magnesium Total Bilirubin AST ALT Alkaline Phosphatase Ammonia Troponin I 0.24 H* Total Protein Albumin Globulin Albumin/Globulin Ratio Amylase Arterial Blood Potassium 3.8 Venous Blood Potassium Hepatitis A IgM Ab Hep Bs Antigen Hep B Core IgM Ab Hepatitis C Antibody 02/28/17 02/28/17 02/28/17 06:41 09:40 10:33 WBC RBC Hgb Hct MCV MCH MCHC RDW Plt Count MPV Gran % Lymph % (Auto) George % (Auto) Eos % (Auto) Baso % (Auto) Gran # Lymph # George # Eos # Baso # PT 22.3 H INR 2.06 H APTT 65.8 H Fibrinogen 72.8 L* pCO2 46 H pO2 50 55.0 L HCO3 15.3 L ABG pH 7.13 L* ABG Total CO2 16.7 L ABG O2 Saturation 91.1 L ABG Base Excess -13.6 L ABG Potassium 4.1 VBG pH 7.12 L* VBG pCO2 55.0 VBG HCO3 17.9 L VBG Total CO2 19.6 L VBG O2 Sat (Calc) 87.9 H VBG Base Excess -11.7 L VBG Potassium 4.3 Glucose 70 L 67 L Lactate 10.3 H* 9.8 H* Mechanical Rate 30 FiO2 21.0 60.0 Tidal Volume 420 PEEP 5 Sodium 140.0 141.0 Potassium Chloride 109.0 H 112.0 H Carbon Dioxide Anion Gap BUN Creatinine Est GFR ( Amer) Est GFR (Non-Af Amer) Random Glucose Lactic Acid Calcium Phosphorus Magnesium Total Bilirubin AST ALT Alkaline Phosphatase Ammonia Troponin I Total Protein Albumin Globulin Albumin/Globulin Ratio Amylase Arterial Blood Potassium 4.1 Venous Blood Potassium 4.3 Hepatitis A IgM Ab Hep Bs Antigen Hep B Core IgM Ab Hepatitis C Antibody 02/28/17 02/28/17 11:15 11:15 WBC 10.2 D RBC 3.04 L Hgb 9.8 L Hct 28.4 L MCV 93.4 MCH 32.2 MCHC 34.5 RDW 16.6 H Plt Count 82 L MPV 8.9 Gran % 57.5 Lymph % (Auto) 28.0 George % (Auto) 13.7 H Eos % (Auto) 0.2 L Baso % (Auto) 0.6 Gran # 5.87 Lymph # 2.9 George # 1.4 H Eos # 0.0 Baso # 0.06 PT 19.5 H INR 1.81 H APTT 59.8 H Fibrinogen pCO2 pO2 HCO3 ABG pH ABG Total CO2 ABG O2 Saturation ABG Base Excess ABG Potassium VBG pH VBG pCO2 VBG HCO3 VBG Total CO2 VBG O2 Sat (Calc) VBG Base Excess VBG Potassium Glucose Lactate Mechanical Rate FiO2 Tidal Volume PEEP Sodium Potassium Chloride Carbon Dioxide Anion Gap BUN Creatinine Est GFR ( Amer) Est GFR (Non-Af Amer) Random Glucose Lactic Acid Calcium Phosphorus Magnesium Total Bilirubin AST ALT Alkaline Phosphatase Ammonia Troponin I Total Protein Albumin Globulin Albumin/Globulin Ratio Amylase Arterial Blood Potassium Venous Blood Potassium Hepatitis A IgM Ab Hep Bs Antigen Hep B Core IgM Ab Hepatitis C Antibody Assessment & Plan - Assessment and Plan (Free Text) Assessment: 56 year old male with history of alcohol use, HTN admitted with hematamesis, acute GI bleeding, altered mental status, respiratory failure, hypotension. Intubated,vaospressors, multiple transfusions. Patients at bedside. Palliative services introduced as a support system for family. Explored 's understanding of husbands medical situation. She states that she knows he is very ill but unable to verbalize realistic understanding of his condition. I affirmed that her was critically ill, explained severity of his situation in simple terms and told her that chance for survival was poor. states that her did not have an advanced directive and that this was not something they had ever discussed. Ramifications of aggressive CPR explained, questions answered. Options for comfort care offered. still hopeful that patient can pull through and wants him to remain full code status.Psychosocial support given. Spiritual support provided. Time spent in goals of care and advance care planning discussion, 20 minutes Plan: Palliative support, will assist family in establishing goals of care.
[2017-02-28 12:19] LABS: FIBRINOGEN 92.7 mg/dL (187-400)
[2017-02-28] MEDS: Dextrose 5%/0.9% NS 1,000 ML IV SCH (14:13)
[2017-02-28 15:50] VITALS: RESP 32
[2017-02-28 16:18] LABS: VENOUS BLOOD GAS BASE EXCESS -9.5 mmol/L (0.0-2.0)
[2017-02-28 16:20] LABS: VENOUS BLOOD PH 7.16 (7.32-7.43)
[2017-02-28 16:48] LABS: BASO # 0.06 K/mm3 (0.0-2.0); BASO % 0.5 % (0.0-3.0); EOS % 0.1 % (1.5-5.0); GRAN # 7.92 (1.4-6.5); GRAN % 66.6 % (50.0-68.0); LYMPH # 2.2 (1.2-3.4); LYMPH % 18.8 % (22.0-35.0); MEAN CELL VOLUME 93.3 fl (80.0-105.0); MEAN CORPUSCULAR HEMOGLOBIN 32.7 pg (25.0-35.0); MEAN CORPUSCULAR HGB CONC 35.1 g/dl (31.0-37.0); MEAN PLATELET VOLUME 9.9 fl (7.0-11.0); MONO # 1.7 (0.1-0.6); RED CELL DISTRIBUTION WIDTH 17.5 % (11.5-14.5); WHITE BLOOD COUNT 11.9 10^3/ul (4.5-11.0)
[2017-02-28 16:50] LABS: HEMATOCRIT 20.8 % (42.0-52.0)
[2017-02-28 16:58] LABS: INR 1.97 (0.93-1.08); PARTIAL THROMBOPLASTIN TIME 44.4 Seconds (23.7-30.8)
[2017-02-28 17:08] LABS: ALB/GLOB RATIO 0.9 (1.1-1.8); BILIRUBIN,TOTAL 4.9 mg/dL (0.2-1.3); POTASSIUM 3.8 mmol/L (3.6-5.0); TOTAL PROTEIN 3.6 g/dL (5.8-8.3)
[2017-02-28 17:22] LABS: FIBRINOGEN 76.5 mg/dL (187-400)
[2017-02-28 17:26] LABS: CALCIUM 5.9 mg/dL (8.4-10.5)
--- NOTE | 2017-02-28 19:45 | PN ---
SUBJECTIVE: The patent is intubated, on the ventilator in 129, bed 2. The patient was intubated this morning and overall in poor condition. PHYSICAL EXAMINATION: VITAL SIGNS: Temperature is 98; blood pressure is 120/70; respiratory rate, on the vent; heart rate of 118. HEENT: Reveals ET tube in place. NECK: Supple. LUNGS: Decreased breath sounds. HEART: Normal S1 and S2. ABDOMEN: Soft and nontender. LABORATORY DATA: Reveals a white count of 10,000; hemoglobin of 9; platelets of 82. Chemistries reveals a BUN of 25, creatinine of 0.9. LFTs are elevated. Serology: Hepatitis profile is negative. Microbiology: The blood cultures are negative. REVIEW OF ORDERS: Reveals the patient is currently on Zosyn. Stacy Camilo's consultation is reviewed. The patient had an upper endoscopy today and Dr. Coleen Stout's progress note is reviewed. ASSESSMENT AND PLAN: A 56-year-old male who has past medical history significant for hypertension, alcoholic liver disease, and alcoholism admitted with systemic inflammatory response syndrome, acute mental status change, significant hepatic encephalopathy and gastrointestinal bleeding with alcohol withdrawals, now respiratory failure intubated on ventilator and negative blood cultures. The patient also is status post IR stent placement into superior mesenteric artery and inferior mesenteric artery yesterday, and they also showed mesenteric ischemia. Currently on Zosyn, and overall prognosis is quite poor for this patient. We will follow closely with you. Chris Cano MD
[2017-02-28 20:17] LABS: BASO # 0.05 K/mm3 (0.0-2.0); BASO % 0.4 % (0.0-3.0); EOS % 0.2 % (1.5-5.0); GRAN # 7.48 (1.4-6.5); GRAN % 66.2 % (50.0-68.0); LYMPH # 2.1 (1.2-3.4); LYMPH % 18.2 % (22.0-35.0); MEAN CELL VOLUME 93.1 fl (80.0-105.0); MEAN CORPUSCULAR HEMOGLOBIN 32.2 pg (25.0-35.0); MEAN CORPUSCULAR HGB CONC 34.6 g/dl (31.0-37.0); MEAN PLATELET VOLUME 9.6 fl (7.0-11.0); MONO # 1.7 (0.1-0.6); WHITE BLOOD COUNT 11.3 10^3/ul (4.5-11.0)
[2017-02-28 20:18] LABS: HEMATOCRIT 22.8 % (42.0-52.0); VENOUS BLOOD GAS BASE EXCESS -14.7 mmol/L (0.0-2.0); VENOUS BLOOD PH 7.07 (7.32-7.43)
[2017-02-28 20:30] LABS: INR 1.8 (0.93-1.08)
--- NOTE | 2017-02-28 21:26 | CON ---
ADDENDUM DATE: The patient was seen with the resident, physical examination performed and history reviewed. He is a 56-year-old man with multiple risk factors who presented with symptoms and signs of mesenteric ischemia. His risk factors include liver failure and metabolic acidosis. Currently, he is coagulopathic with INR in the 2s. The CT scan was also reviewed showing heavy calcification at the celiac abscess and the superior mesenteric artery origin. The aorta in that portion is not calcified. The calcification was limited to the individual vessel. The case was discussed with Dr. Bennett. IMPRESSION: The patient is critically ill and will not tolerate or survive a mesenteric bypass. In view of the lack of calcification in the aorta, endovascular stenting is feasible and is indicated. Coleen Stout MD
[2017-02-28 21:27] LABS: FIBRINOGEN 91.4 mg/dL (187-400)
--- NOTE | 2017-02-28 21:40 | PCM.SURG1 ---
Surgeon's Initial Post Op Note - Surgeon's Notes Surgeon: Dr. Paris [place] Operator: Mackenzie GOODMANY1, Sarkis CARDENAS, Ry LOAIZA Type of Anesthesia: General Endo Pre-Operative Diagnosis: Suspected necrotic bowel Operative Findings: ischemic but viable bowel (see operative report) Post-Operative Diagnosis: Ascites, liver cirrhosis, ischemic but viable bowel Operation Performed: exploratory laparotomy Specimen/Specimens Removed: N/A Estimated Blood Loss: EBL {In ML}: 15 Blood Products Given: N/A Drains Used: No Drains Post-Op Condition: Critical (same as pre-op) Date of Surgery/Procedure: 02/28/17 Time of Surgery/Procedure: 21:40
[2017-03-01 00:22] VITALS: PULSE 108; TEMP 98
[2017-03-01 00:22] LABS: BASO # 0.04 K/mm3 (0.0-2.0); BASO % 0.5 % (0.0-3.0); EOS % 0.1 % (1.5-5.0); GRAN # 4.82 (1.4-6.5); GRAN % 57.6 % (50.0-68.0); LYMPH # 2.4 (1.2-3.4); LYMPH % 28.6 % (22.0-35.0); MEAN CELL VOLUME 94.1 fl (80.0-105.0); MEAN CORPUSCULAR HEMOGLOBIN 31.4 pg (25.0-35.0); MEAN CORPUSCULAR HGB CONC 33.3 g/dl (31.0-37.0); MEAN PLATELET VOLUME 8.4 fl (7.0-11.0); MONO # 1.1 (0.1-0.6); MONO % 13.2 % (1.0-6.0); RED CELL DISTRIBUTION WIDTH 17.6 % (11.5-14.5); WHITE BLOOD COUNT 8.4 10^3/ul (4.5-11.0)
[2017-03-01 00:26] LABS: VENOUS BLOOD GAS BASE EXCESS -19.3 mmol/L (0.0-2.0)
[2017-03-01 00:29] LABS: HEMATOCRIT 15.9 % (42.0-52.0)
[2017-03-01 00:30] LABS: VENOUS BLOOD PH 7.07 (7.32-7.43)
[2017-03-01] MEDS ORDERED: Dextrose 50% SYRINGE Inj (50 ml) IVP ONE (00:37)
[2017-03-01 00:47] LABS: MEAN CELL VOLUME 94.4 fl (80.0-105.0); MEAN CORPUSCULAR HEMOGLOBIN 31.5 pg (25.0-35.0); MEAN CORPUSCULAR HGB CONC 33.3 g/dl (31.0-37.0); MEAN PLATELET VOLUME 8.3 fl (7.0-11.0); RED CELL DISTRIBUTION WIDTH 17.7 % (11.5-14.5); WHITE BLOOD COUNT 8.4 10^3/ul (4.5-11.0)
[2017-03-01 00:49] LABS: HEMATOCRIT 15.3 % (42.0-52.0)
[2017-03-01 00:56] LABS: INR 1.74 (0.93-1.08); PARTIAL THROMBOPLASTIN TIME 57.7 Seconds (23.7-30.8)
[2017-03-01 00:59] LABS: FIBRINOGEN 92.3 mg/dL (187-400)
[2017-03-01] MEDS: NOREPINEPHRINE BIT/0.9 % NACL 4 MG/250 ML BAG IV PRN ×2 (01:14→03:09)
[2017-03-01] MEDS: Dextrose 5%/0.9% NS 1,000 ML IV SCH (01:18)
[2017-03-01] MEDS: Pantoprazole 40mg/100ml IVPB 40 MG/100 ML BAG IVPB SCH (01:34)
[2017-03-01 01:41] VITALS: O2SAT 100
[2017-03-01 02:08] LABS: ABG MECHANICAL RATE 20; ATERIAL BLOOD GAS PEEP 5
[2017-03-01] MEDS ORDERED: Sodium Bicarbonate (8.4%) 50 Meq Syringe IVP ONE (02:12)
[2017-03-01 02:22] LABS: ARTERIAL BLOOD GAS PH 6.98 (7.35-7.45)
[2017-03-01 02:23] LABS: ARTERIAL BLOOD GAS HCO3 7.5 mmol/L (21-28)
[2017-03-01] MEDS: Vasopressin 20 UNITS in Dextrose 5% In Water 100 ML IV SCH (03:10)
[2017-03-01 03:11] VITALS: BP 90/60
[2017-03-01] MEDS ORDERED: Dextrose 50% SYRINGE Inj (50 ml) ONE (04:57)
--- NOTE | 2017-03-01 05:13 | CP.PCM.PRO ---
Pronouncement of Note - Clinical Findings Physical Exam: No Response Verbal/Painful Stimuli, Absent Peripheral Pulses{ Carotid & Femoral}, Absent Heart & Breath Sounds, Pupils Fixed & Dilated - Pronouncement Time Time of Pronouncement of : 05:05 (Date of : 03/01/2017) - Notifications Pronouncement Notifications: Family Notified, Atending Notified Windows Server Administrator Notified: Yes - Autopsy Autopsy Requested: No - [place] [id number]
--- NOTE | 2017-03-01 05:28 | CON ---
DATE: HISTORY OF PRESENT ILLNESS: A 56-year-old in the CCU. The patient was admitted 2 days ago with abdominal pain, had an aortogram done yesterday, by Dr. Renato Bennett, for revascularization of SMA and JOSH, was not able to revascularize the celiac. At that time, there was some bright red blood per rectum. Upper endoscopy except the stomach, there is areas of ischemia in the stomach. CAT scan was done 2 days ago, which showed some thick walled small intestine, otherwise unremarkable. Recently, the white count is 11.9, hemoglobin 7.3, down from 9.8. Coags were at normal with a PT of 21, INR of 1.9, fibrinogen low at 76 and PTT is 44. The blood gas showed a pH this morning of 7.13, venous pH is 7.16 and lactate is 11.2. Bilirubin is up to 5. AST 3000 and ALT 1000. Troponin 0.24 and amylase not regularly available. PHYSICAL EXAMINATION: GENERAL: The patient is examined. VITAL SIGNS: Show a blood pressure about 110 on 2 maximum pressures, Levophed and vasopressor. Urine is minimal. The patient is intubated on propofol and a muscle paralyzer. ABDOMEN: Is without scars, but is obese, but no guarding or rebound on the above mentioned medicines. There is active rectal bleeding of bright red blood. IMPRESSION: Multisystem organ failure, unstable. He is unable to have CAT scan done today at my request because of instability. Almost certainly, the patient has abdominal ischemia. We will plan a laparotomy. The patient is very unstable. I am not sure he will survive this operation and probably the odds are against it, but the alternatives are, I do not think he will survive at all. Rather than wait for stability, we will proceed tonight. I spoke to the and the daughter. I spoke to Anesthesia and Dr. Rogel, Bulk Receiver, will plan to do expeditiously. Ike Paris MD
--- NOTE | 2017-03-01 06:36 | CP.PCM.DIS ---
<Lila Alvarenga - Last Filed: 03/01/17 14:26> Provider - Provider Date of Admission: 02/26/17 14:49 Attending physician: Madhu Watters MD Primary care physician: Denita Mobley MD Consults: GI: Judd IR: Donald Vascular surgery: Girish General Surgery: [place] ICU: [facility] Palliative care: [place] Time Spent in preparation of Discharge (in minutes): 35 Hospital Course - Lab Results Lab Results: Micro Results 02/26/17 16:22 Nose MRSA Culture (Admit) - Final MRSA NOT DETECTED Most Recent Lab Values WBC 8.4 10^3/ul (4.5-11.0) 03/01/17 00:35 RBC 1.62 10^6/uL (3.5-6.1) L 03/01/17 00:35 Hgb 5.1 g/dL (14.0-18.0) L* 03/01/17 00:35 Hct 15.3 % (42.0-52.0) L* 03/01/17 00:35 MCV 94.4 fl (80.0-105.0) 03/01/17 00:35 MCH 31.5 pg (25.0-35.0) 03/01/17 00:35 MCHC 33.3 g/dl (31.0-37.0) 03/01/17 00:35 RDW 17.7 % (11.5-14.5) H 03/01/17 00:35 Plt Count 82 10^3/uL (120.0-450.0) L 03/01/17 00:35 MPV 8.3 fl (7.0-11.0) 03/01/17 00:35 Gran % 57.6 % (50.0-68.0) 03/01/17 00:10 Lymph % (Auto) 28.6 % (22.0-35.0) 03/01/17 00:10 [place] % (Auto) 13.2 % (1.0-6.0) H 03/01/17 00:10 Eos % (Auto) 0.1 % (1.5-5.0) L 03/01/17 00:10 Baso % (Auto) 0.5 % (0.0-3.0) 03/01/17 00:10 Gran # 4.82 (1.4-6.5) 03/01/17 00:10 Lymph # 2.4 (1.2-3.4) 03/01/17 00:10 [place] # 1.1 (0.1-0.6) H 03/01/17 00:10 Eos # 0.0 (0.0-0.7) 03/01/17 00:10 Baso # 0.04 K/mm3 (0.0-2.0) 03/01/17 00:10 PT 18.8 Seconds (9.9-11.8) H 03/01/17 00:10 INR 1.74 (0.93-1.08) H 03/01/17 00:10 APTT 57.7 Seconds (23.7-30.8) H 03/01/17 00:10 Fibrinogen 92.3 mg/dL (187-400) L* 03/01/17 00:10 pCO2 32 mm/Hg (35-45) L 03/01/17 02:04 pO2 233.0 mm/Hg (80-100) H 03/01/17 02:04 HCO3 7.5 mmol/L (21-28) L* 03/01/17 02:04 ABG pH 6.98 (7.35-7.45) L* 03/01/17 02:04 ABG Total CO2 8.5 mmol.L (22-28) L 03/01/17 02:04 ABG O2 Saturation 100.4 % (95-98) H 03/01/17 02:04 ABG Base Excess -23.2 mmol/L (-2.0-3.0) L 03/01/17 02:04 ABG Potassium 5.4 mmol/L (3.6-5.2) H 03/01/17 02:04 VBG pH 7.07 (7.32-7.43) L* 03/01/17 00:10 VBG pCO2 34.0 (40-60) L 03/01/17 00:10 VBG HCO3 9.9 mmol/l (21-28) L 03/01/17 00:10 VBG Total CO2 10.9 mmol.L (22-28) L 03/01/17 00:10 VBG O2 Sat (Calc) 96.4 % (40-65) H 03/01/17 00:10 VBG Base Excess -19.3 mmol/L (0.0-2.0) L 03/01/17 00:10 VBG Potassium 5.2 mmol/L (3.6-5.2) 03/01/17 00:10 Sodium 142.0 mmol/L (132-148) 03/01/17 02:04 Chloride 114.0 mmol/L (98-107) H 03/01/17 02:04 Glucose 99 mg/dl (75-110) 03/01/17 02:04 Lactate 18.5 mmol/L (0.7-2.1) H* 03/01/17 02:04 Mechanical Rate 20 03/01/17 02:04 FiO2 100.0 % 03/01/17 02:04 Tidal Volume 450 03/01/17 02:04 PEEP 5 03/01/17 02:04 Sodium 143 mmol/L (132-148) 02/28/17 16:40 Potassium 3.8 mmol/L (3.6-5.0) 02/28/17 16:40 Chloride 109 mmol/L (98-107) H 02/28/17 16:40 Carbon Dioxide 19 mmol/L (21-33) L 02/28/17 16:40 Anion Gap 19 (10-20) 02/28/17 16:40 BUN 26 mg/dL (7-21) H 02/28/17 16:40 Creatinine 2.1 mg/dL (0.8-1.5) H 02/28/17 16:40 Est GFR ( Amer) 40 02/28/17 16:40 Est GFR (Non-Af Amer) 33 02/28/17 16:40 POC Glucose (mg/dL) < 20 mg/dL (65-110) L* 03/01/17 00:33 Random Glucose 75 mg/dL (70-110) 02/28/17 16:40 Lactic Acid 13.0 mmol/L (0.7-2.1) H* 02/28/17 20:05 Calcium 5.9 mg/dL (8.4-10.5) L* 02/28/17 16:40 Phosphorus 1.8 mg/dL (2.5-4.5) L 02/28/17 03:50 Magnesium 1.9 mg/dL (1.7-2.2) 02/28/17 03:50 Total Bilirubin 4.9 mg/dL (0.2-1.3) H 02/28/17 16:40 Direct Bilirubin 1.8 mg/dL (0.0-0.4) H 02/26/17 13:57 AST 3318 U/L (17-59) H 02/28/17 16:40 ALT 1016 U/L (7-56) H 02/28/17 16:40 Alkaline Phosphatase 48 U/L (38-126) 02/28/17 16:40 Ammonia 43 umol/L (9-33) H 02/28/17 03:50 Lactate Dehydrogenase 2772 U/L (333-699) H 02/26/17 19:39 Total Creatine Kinase 327 U/L (35-230) H 02/26/17 19:39 CK-MB (CK-2) 7.2 ng/mL (0.0-3.6) H 02/26/17 19:39 CK-MB (CK-2) % 2.2 % (2.5-3.0) L 02/26/17 19:39 Troponin I 0.24 ng/mL H* 02/28/17 06:41 Total Protein 3.6 g/dL (5.8-8.3) L 02/28/17 16:40 Albumin 1.7 g/dL (3.0-4.8) L 02/28/17 16:40 Globulin 2.0 gm/dL 02/28/17 16:40 Albumin/Globulin Ratio 0.9 (1.1-1.8) L 02/28/17 16:40 Amylase 52 U/L (35-125) 02/27/17 19:48 Lipase 35 U/L (23-300) 02/26/17 13:57 Arterial Blood Potassium 5.4 mmol/L (3.6-5.2) H 03/01/17 02:04 Venous Blood Potassium 5.2 mmol/L (3.6-5.2) 03/01/17 00:10 Salicylates < 1 mg/dL (2.0-20.0) L 02/26/17 13:57 Acetaminophen < 10.0 ug/ml (10.0-20.0) L 02/26/17 13:57 Alcohol, Quantitative < 10 mg/dL (0-10) 02/26/17 13:57 Hepatitis A IgM Ab Negative (NEGATIVE) 02/27/17 06:30 Hep Bs Antigen Negative (NEGATIVE) 02/27/17 06:30 Hep B Core IgM Ab Negative (NEGATIVE) 02/27/17 06:30 Hepatitis C Antibody Negative (NEGATIVE) 02/27/17 06:30 Blood Type A POSITIVE 02/26/17:57 Blood Type Confirm A POSITIVE 02/26/17 15:00 Antibody Screen Negative 02/26/1757 Crossmatch See Detail 02/26/17:57 BBK History Checked No verified bt 02/26/17:57 - Hospital Course Hospital Course: Patient is a 56 year old male with past medical history of alcohol abuse and HTN presents to the ED for hematemesis. Patient states that he has been vomiting dark red blood since Saturday morning. Vomitus subsequently became dark, coffee ground in nature. Patient reports vomiting 6 times yesterday and 3-4 times on day of admission. Patient occasionally confused during the interview. is currently at the bedside providing some of the history. States that confusion started in the ED. Does not know where he is or what year he was born. Per the , patient's last drink was Saturday and he drank 3-4 beers. Patient was admitted to the ICU for Acute Upper GI bleed. Hgb on admission was 9.6 (baseline 15-16). Patient also found to have AMS secondary to hepatic encephalopathy, alcoholic hepatitis/alcoholic cirrhosis. Patient was started on protonix drip and octreotide drip for suspected varices. CT head was negative for acute pathology. CT abd/pelvis showed mild mural thickening in the small bowel, splenic varices and possible cirrhosis (see full report). Abx for SBP prophylaxis was started. Ammonia was 107 on admission, patient was started on lactulose. Lactic acid was 12.4 likely due to hypoperfusion/liver disease. LFTs were markedly elevated (911/297), Abdominal US showed hepatocellular disease and possible fatty infiltrate of the liver. GI was consulted and on the case. Patient was possible candidate [facility] transfer to [facility]. Patient found to have elevated trops on admission likely 2/2 to demand ischemia. EKG showed sinus tachycardia. Cardiology was consulted and echo was performed. Patient was transfused FFP and platelets prior to EGD. EGD showed purple discoloration of gastric body and fundal mucosa worrisome for mesenteric ischemia, moderate to severe erosive esophagitis, severe portal HTN gastropathy. Interventional Radiology and Vascular surgery were consulted. Patient went for Celiac, SMA, JOSH arteriogram. Stents were placed in the JOSH/ SMA. Celiac artery was occluded. Patient returned back to the ICU post procedure. Patient was found to be in severe respiratory distress, tachycardic, and exhibited wet breathing sounds, so oral suctioning was performed, and was notable for suctioning bright red blood. Hgb was found to be 6.3. Patient was intubated for airway protection and adequate oxygenation. Decision was made to place central line for pressor support. Patient was aggressively transfused under massive transfusion protocol, but continued to hemorrhage, with worsening hypotension requiring pressor support. Case discussed with ICU fellow at [facility] at length, as per ICU fellow no acute intervention from their standpoint, patient not stable for transfer, would recommend transitioning patient to comfort care. GI made aware of patients condition. GI performed bedside EGD that showed blood in the gastric fundus and body, one necrotic gastric ulcer that was oozing (injected with epinephrine and coagulated with bipolar probed, 3 hemostatic clips were placed; please see full report). General Surgery was consulted. Patient was taken to the OR for exploratory laparotomy. Ischemic bowel was noted, but it was viable. Patient returned to ICU for further management. Patient was transfused a total of 11 units PRBCs, 11 units of FFP, 3 units of platelets, and cryo. At approx 4:45 on 03/01 patient went bradycardic. Code blue was called. Patient was pronounced at 5:05am. Family and PMD notified. Discharge Plan - Follow Up Plan Condition: Disposition: WITH WITHOUT AUTOPSY Referrals: Denita Mobley MD [Primary Care Provider] - <Madhu Watters - Last Filed: 03/01/17 15:12> Provider - Provider Date of Admission: 02/26/17 14:49 Attending physician: Madhu Watters MD Primary care physician: Denita Mobley MD Hospital Course - Lab Results Lab Results: Micro Results 02/26/17 16:22 Nose MRSA Culture (Admit) - Final MRSA NOT DETECTED Most Recent Lab Values WBC 8.4 10^3/ul (4.5-11.0) 03/01/17 00:35 RBC 1.62 10^6/uL (3.5-6.1) L 03/01/17 00:35 Hgb 5.1 g/dL (14.0-18.0) L* 03/01/17 00:35 Hct 15.3 % (42.0-52.0) L* 03/01/17 00:35 MCV 94.4 fl (80.0-105.0) 03/01/17 00:35 MCH 31.5 pg (25.0-35.0) 03/01/17 00:35 MCHC 33.3 g/dl (31.0-37.0) 03/01/17 00:35 RDW 17.7 % (11.5-14.5) H 03/01/17 00:35 Plt Count 82 10^3/uL (120.0-450.0) L 03/01/17 00:35 MPV 8.3 fl (7.0-11.0) 03/01/17 00:35 Gran % 57.6 % (50.0-68.0) 03/01/17 00:10 Lymph % (Auto) 28.6 % (22.0-35.0) 03/01/17 00:10 [place] % (Auto) 13.2 % (1.0-6.0) H 03/01/17 00:10 Eos % (Auto) 0.1 % (1.5-5.0) L 03/01/17 00:10 Baso % (Auto) 0.5 % (0.0-3.0) 03/01/17 00:10 Gran # 4.82 (1.4-6.5) 03/01/17 00:10 Lymph # 2.4 (1.2-3.4) 03/01/17 00:10 [place] # 1.1 (0.1-0.6) H 03/01/17 00:10 Eos # 0.0 (0.0-0.7) 03/01/17 00:10 Baso # 0.04 K/mm3 (0.0-2.0) 03/01/17 00:10 PT 18.8 Seconds (9.9-11.8) H 03/01/17 00:10 INR 1.74 (0.93-1.08) H 03/01/17 00:10 APTT 57.7 Seconds (23.7-30.8) H 03/01/17 00:10 Fibrinogen 92.3 mg/dL (187-400) L* 03/01/17 00:10 pCO2 32 mm/Hg (35-45) L 03/01/17 02:04 pO2 233.0 mm/Hg (80-100) H 03/01/17 02:04 HCO3 7.5 mmol/L (21-28) L* 03/01/17 02:04 ABG pH 6.98 (7.35-7.45) L* 03/01/17 02:04 ABG Total CO2 8.5 mmol.L (22-28) L 03/01/17 02:04 ABG O2 Saturation 100.4 % (95-98) H 03/01/17 02:04 ABG Base Excess -23.2 mmol/L (-2.0-3.0) L 03/01/17 02:04 ABG Potassium 5.4 mmol/L (3.6-5.2) H 03/01/17 02:04 VBG pH 7.07 (7.32-7.43) L* 03/01/17 00:10 VBG pCO2 34.0 (40-60) L 03/01/17 00:10 VBG HCO3 9.9 mmol/l (21-28) L 03/01/17 00:10 VBG Total CO2 10.9 mmol.L (22-28) L 03/01/17 00:10 VBG O2 Sat (Calc) 96.4 % (40-65) H 03/01/17 00:10 VBG Base Excess -19.3 mmol/L (0.0-2.0) L 03/01/17 00:10 VBG Potassium 5.2 mmol/L (3.6-5.2) 03/01/17 00:10 Sodium 142.0 mmol/L (132-148) 03/01/17 02:04 Chloride 114.0 mmol/L (98-107) H 03/01/17 02:04 Glucose 99 mg/dl (75-110) 03/01/17 02:04 Lactate 18.5 mmol/L (0.7-2.1) H* 03/01/17 02:04 Mechanical Rate 20 03/01/17 02:04 FiO2 100.0 % 03/01/17 02:04 Tidal Volume 450 03/01/17 02:04 PEEP 5 03/01/17 02:04 Sodium 143 mmol/L (132-148) 02/28/17 16:40 Potassium 3.8 mmol/L (3.6-5.0) 02/28/17 16:40 Chloride 109 mmol/L (98-107) H 02/28/17 16:40 Carbon Dioxide 19 mmol/L (21-33) L 02/28/17 16:40 Anion Gap 19 (10-20) 02/28/17 16:40 BUN 26 mg/dL (7-21) H 02/28/17 16:40 Creatinine 2.1 mg/dL (0.8-1.5) H 02/28/17 16:40 Est GFR ( Amer) 40 02/28/17 16:40 Est GFR (Non-Af Amer) 33 02/28/17 16:40 POC Glucose (mg/dL) < 20 mg/dL (65-110) L* 03/01/17 00:33 Random Glucose 75 mg/dL (70-110) 02/28/17 16:40 Lactic Acid 13.0 mmol/L (0.7-2.1) H* 02/28/17 20:05 Calcium 5.9 mg/dL (8.4-10.5) L* 02/28/17 16:40 Phosphorus 1.8 mg/dL (2.5-4.5) L 02/28/17 03:50 Magnesium 1.9 mg/dL (1.7-2.2) 02/28/17 03:50 Total Bilirubin 4.9 mg/dL (0.2-1.3) H 02/28/17 16:40 Direct Bilirubin 1.8 mg/dL (0.0-0.4) H 02/26/17 13:57 AST 3318 U/L (17-59) H 02/28/17 16:40 ALT 1016 U/L (7-56) H 02/28/17 16:40 Alkaline Phosphatase 48 U/L (38-126) 02/28/17 16:40 Ammonia 43 umol/L (9-33) H 02/28/17 03:50 Lactate Dehydrogenase 2772 U/L (333-699) H 02/26/17 19:39 Total Creatine Kinase 327 U/L (35-230) H 02/26/17 19:39 CK-MB (CK-2) 7.2 ng/mL (0.0-3.6) H 02/26/17 19:39 CK-MB (CK-2) % 2.2 % (2.5-3.0) L 02/26/17 19:39 Troponin I 0.24 ng/mL H* 02/28/17 06:41 Total Protein 3.6 g/dL (5.8-8.3) L 02/28/17 16:40 Albumin 1.7 g/dL (3.0-4.8) L 02/28/17 16:40 Globulin 2.0 gm/dL 02/28/17 16:40 Albumin/Globulin Ratio 0.9 (1.1-1.8) L 02/28/17 16:40 Amylase 52 U/L (35-125) 02/27/17 19:48 Lipase 35 U/L (23-300) 02/26/17 13:57 Arterial Blood Potassium 5.4 mmol/L (3.6-5.2) H 03/01/17 02:04 Venous Blood Potassium 5.2 mmol/L (3.6-5.2) 03/01/17 00:10 Salicylates < 1 mg/dL (2.0-20.0) L 02/26/17 13:57 Acetaminophen < 10.0 ug/ml (10.0-20.0) L 02/26/17 13:57 Alcohol, Quantitative < 10 mg/dL (0-10) 02/26/17 13:57 Hepatitis A IgM Ab Negative (NEGATIVE) 02/27/17 06:30 Hep Bs Antigen Negative (NEGATIVE) 02/27/17 06:30 Hep B Core IgM Ab Negative (NEGATIVE) 02/27/17 06:30 Hepatitis C Antibody Negative (NEGATIVE) 02/27/17 06:30 HIV-1 RNA Qnt (RT-PCR) <1.30 not detected (<1.30) 02/27/17 18:15 Blood Type A POSITIVE 02/26/17 13:57 Blood Type Confirm A POSITIVE 02/26/17 15:00 Antibody Screen Negative 02/26/17 13:57 Crossmatch See Detail 02/26/17 13:57 BBK History Checked No verified bt 02/26/17 13:57 Attending/Attestation - Attestation I have personally seen and examined this patient.: Yes I have fully participated in the care of the patient.: Yes I have reviewed all pertinent clinical information, including history, physical exam and plan: Yes Notes (Text): 03/01/17 15:04 Patient is 56 year old male with PMH of HTN, ETOH abuse(>6 beers per day x 30y) presents with hematemesis and AMS. the patient was intubated and on pressors. Hemorrhagic shock. Status post EGD x2. Epinephrine injection for bleeding vessel Status post SMA and JOSH stent. Got 11 units of PRBC and 11 units of FFP and 3 units of platelets. patient had exploratory laparotomy yesterday. Patient continued to have significant anemia. the patient coded at 4;45 am. ACLS protocol followed. Patient at 5:05 am. certificate signed. ME informed. body released. condolences offered to the family. Diagnosis; cardiopulmonary arrest Acute GI bleed Hemorrhagic shock Alcoholic liver disease Severe coagulopathy Multiple blood transfusions. Mesenteric ischemia Status post laparotomy Status post EGD Bleeding ulcer Severe gastritis 03/01/17 15:11 03/01/17 15:12
--- NOTE | 2017-03-01 07:46 | RAD ---
HISTORY: s/p r ij central line COMPARISON: Portable chest 02/28/2017. FINDINGS: Endotracheal tube is unchanged in position. A right center venous lines in place by an apparent internal jugular approach with tip terminating the superior vena cava. LUNGS: Left hemidiaphragm is now silhouetted suggesting left lower lobe basilar atelectasis or infiltrate. Borderline airspace disease seen the right base. PLEURA: Trace left pleural effusion is not excluded. None is seen the right. There is no pneumothorax bilaterally. CARDIOVASCULAR: Cardiomegaly is stable. No pulmonary vascular derangement. OSSEOUS STRUCTURES: No significant abnormalities. VISUALIZED UPPER ABDOMEN: Normal. OTHER FINDINGS: None. IMPRESSION: Interval significant airspace disease is seen the left base, borderline at the right. Minimal left pleural effusion not excluded. Interval right center venous line placement. No pneumothorax.
--- NOTE | 2017-03-01 15:35 | OP ---
PROCEDURE DATE: 02/28/2017 PREOPERATIVE DIAGNOSIS: Infarcted bowel. POSTOPERATIVE DIAGNOSES: Portal hypertension; ascites; cirrhosis and ischemic bowel, but not necrotic. OPERATION: Exploratory laparotomy. SURGEON: Dr. Paris. COMMISSIONED SECURITY OFFICER: Dr. Navin Mann. DESCRIPTION OF PROCEDURE: In the operating room, the patient was identified by name, name of the procedure, laterality, my ashly, the consent. The clinical picture showed severe acidosis with severe inflow obstruction that was relieved by Dr. Bennett yesterday. The CAT scan done 2 days ago showed distended loops of bowel with thickening, but no perforation. The patient was on maximum pressors from 2 different pressors, and the patient, I do not think would survive the night without a therapeutic operation. Discussed with the family at length, see my prior notes. After the successful time-out, the abdomen was prepped and draped in the usual manner, a midline incision was made through the skin and subcutaneous tissues and the abdomen entered through the prepped field. There was considerable amount of ascites that was cultured and aspirated. There was a palpable nodular cirrhosis and some evidence of portal hypertension. The stomach had some clot in it. but there was no perforation and nothing to suggest the tumor. The anterior wall was unremarkable. Duodenum was unremarkable. The small bowel, pretty much on ligament of Treitz throughout was ischemic, but not infarcted, it was somewhat dusky, but contractions were seen throughout. The colon was unremarkable, but it had some blood in it. The abdomen was cleaned and dried. The incision was closed with a running #1 PDS above and below, tied in the middle. Skin was closed with stanley. The patient was taken back to the ICU, intubated in critical condition. The ischemic bowel could be reversible, but frankly, I did not find a curable surgical lesion. I am aware that the patient has at the time of this dictation. Ike Paris MD
== END 2017-03-01 05:05 | DRG 553 ==
LOC: ED 13:29 → ERH 14:49 → CCU 16:12
PROVIDERS: ADMIT Internal Medicine; ATTEND Internal Medicine
PROC: 30233K1 Transfusion of Nonautologous Frozen Plasma into Peripheral Vein, Percutaneous Approach (ICD-10-PCS; 2017-02-26)
PROC: 047B3DZ Dilation of Inferior Mesenteric Artery with Intraluminal Device, Percutaneous Approach (ICD-10-PCS; 2017-02-27)
PROC: 0DJ08ZZ Inspection of Upper Intestinal Tract, Via Natural or Artificial Opening Endoscopic (ICD-10-PCS; 2017-02-27)
PROC: 6A551Z2 Pheresis of Platelets, Multiple (ICD-10-PCS; 2017-02-27)
PROC: 04753DZ Dilation of Superior Mesenteric Artery with Intraluminal Device, Percutaneous Approach (ICD-10-PCS; principal; 2017-02-27 13:00)
PROC: 0W3P8ZZ Control Bleeding in Gastrointestinal Tract, Via Natural or Artificial Opening Endoscopic (ICD-10-PCS; 2017-02-28)
PROC: 3E0G8GC Introduction of Other Therapeutic Substance into Upper GI, Via Natural or Artificial Opening Endoscopic (ICD-10-PCS; 2017-02-28)
PROC: 5A1935Z Respiratory Ventilation, Less than 24 Consecutive Hours (ICD-10-PCS; 2017-02-28)
PROC: 0BH17EZ Insertion of Endotracheal Airway into Trachea, Via Natural or Artificial Opening (ICD-10-PCS; 2017-02-28)
PROC: 06HN33Z Insertion of Infusion Device into Left Femoral Vein, Percutaneous Approach (ICD-10-PCS; 2017-02-28)
PROC: 3E033XZ Introduction of Vasopressor into Peripheral Vein, Percutaneous Approach (ICD-10-PCS; 2017-02-28)
PROC: 30233N1 Transfusion of Nonautologous Red Blood Cells into Peripheral Vein, Percutaneous Approach (ICD-10-PCS; 2017-02-28)
PROC: 0WJP0ZZ Inspection of Gastrointestinal Tract, Open Approach (ICD-10-PCS; 2017-03-01)
DX: K55.059 Acute (reversible) ischemia of intestine, part and extent unspecified (principal); A41.9 Sepsis, unspecified organism; J96.91 Respiratory failure, unspecified with hypoxia; K72.00 Acute and subacute hepatic failure without coma; R57.8 Other shock; E87.2 Acidosis; K76.6 Portal hypertension; D68.4 Acquired coagulation factor deficiency; K92.0 Hematemesis; F10.239 Alcohol dependence with withdrawal, unspecified; K70.31 Alcoholic cirrhosis of liver with ascites; D69.59 Other secondary thrombocytopenia; K70.11 Alcoholic hepatitis with ascites; K25.9 Gastric ulcer, unspecified as acute or chronic, without hemorrhage or perforation; I10 Essential (primary) hypertension; F17.210 Nicotine dependence, cigarettes, uncomplicated; K20.9 Esophagitis, unspecified; K44.9 Diaphragmatic hernia without obstruction or gangrene; K22.70 Barrett's esophagus without dysplasia; F12.90 Cannabis use, unspecified, uncomplicated; K31.89 Other diseases of stomach and duodenum; Y90.0 Blood alcohol level of less than 20 mg/100 ml